=== PATIENT | female | born 1945 | race Caucasian/White ===

== ENCOUNTER 2020-12-15 03:42 | Inpatient (IN) ==
[2020-12-15] MEDS ORDERED: SODIUM CHLORIDE 0.9% 500 ML IV SCH (04:15)
[2020-12-15 04:22] LABS: Basophils # (auto) 0.02 K/uL (0-0.2); Basophils % (auto) 0.3 %; Eosinophils # (auto) 0.39 K/uL (0-0.5); Eosinophils % (auto) 5.5 %; Hematocrit (blood only) 24.6 % (37-47); Hemoglobin 8.3 g/dL (12.0-16.0); Immature Granulocytes # (auto) 0.02 K/uL (0.00-0.02); Immature Granulocytes % (auto) 0.3 %; Lymphocytes # (auto) 1.31 K/uL (1.2-3.4); Lymphocytes % (auto) 18.5 %; Mean Corpuscular Hemoglobin 31.8 pg (25-34); Mean Corpuscular Hgb Conc 33.7 g/dL (32-36); Mean Corpuscular Volume 94.3 fL (80-100); Mean Platelet Volume 9.3 fL (7.4-10.4); Monocytes # (auto) 0.87 K/uL (0.11-0.59); Monocytes % (auto) 12.3 %; Neutrophils # (auto) 4.47 K/uL (1.4-6.5); Neutrophils % (auto) 63.1 %; Platelet Count 298 K/uL (130-400); RDW Coefficient of Variation 14.9 % (11.5-14.5); RDW Standard Deviation 51.5 fL (36.4-46.3); Red Blood Count 2.61 M/uL (4.2-5.4); White Blood Count 7.08 K/uL (4.8-10.8)
[2020-12-15 04:40] LABS: Alanine Aminotransferase 70 U/L (12-78); Albumin Level 2.4 gm/dl (3.4-5.0); Aspartate Aminotransferase 65 U/L (15-37); BUN Creatinine Ratio 27.9 (10-20); Blood Urea Nitrogen 33 mg/dl (7-18); Calcium 7.8 mg/dl (8.5-10.1); Carbon Dioxide 28 mmol/L (21-32); Chloride 100 mmol/L (98-107); Est GFR (Non-African American) 45.7 ml/min; Glucose 96 mg/dl (70-99); Potassium 5.4 mmol/L (3.5-5.1); Sodium 131 mmol/L (136-145)
--- NOTE | 2020-12-15 04:45 | Emergency Department Note ---
Impression & Plan Acute hypotension, Acute hyperkalemia, Fall, Anemia ED Provider Note NAME: ADDIE VAZQUEZ AGE: 75 SEX: F ARRIVES VIA: Ambulance INFORMANT:Patient ED PROVIDER(S): Cathy Morales DO CHIEF COMPLAINT: Weakness/fall PLAN: [facility] Good MEDICAL DECISION MAKING: This is a 75-year-old female patient who presents to the emergency department after suffering a fall at home because of significant generalized weakness. Patient states that she became so weak when standing up to go to the bathroom that she fell to the ground and then had significant diarrheal bowel movement. The patient was significantly hypotensive for EMS. She was fluid rehydrated. Upon arrival here in the emergency department laboratory studies showed evidence of anemia. Patient had another episode of diarrhea here in the emergency department. This will be sent to the lab for C. difficile interpretation, culture and for Hemoccult testing. The case was discussed with the [facility] hospitalist and they will evaluate for further management. Triage Nursing notes reviewed and agree with them. Vital Signs: reviewed and remarkable for hypotension Differential diagnosis: Dehydration, electrolyte abnormality, UTI, sepsis, hypoglycemia, hyperglycemia ER treatment provided: IV normal saline hydration Diagnostics interpreted by me: ECG: Normal sinus rhythm with first-degree AV block and widened QRS complex at 140 ms. This overall EKG is much different compared to one from December 2004 where the QRS duration was 92 ms. Cardiac monitoring: Normal sinus rhythm at a rate of 66 Laboratory studies: See below HPI: 75/F arrives for evaluation of fall. The patient presents to the emergency department after suffering a fall at home when her legs gave out on her. The patient states that she was asleep on the couch and awoke feeling as if she had to go to the bathroom. She got up to go to the bathroom and her legs gave out on her and she fell to the ground. Patient then had a large diarrheal bowel movement. Patient states that she was recently admitted to [facility] and just discharged yesterday. She describes being admitted to that hospital for very similar reasons. She was noted to be hyperkalemic. ROS: See above HPI for pertinent positives & negatives. A total of 10 systems reviewed and were otherwise negative. PAST MEDICAL HISTORY:Hypertension, hypothyroidism, coronary artery disease, osteoporosis, Raynaud's disease PAST SURGICAL HISTORY:Hysterectomy, gastric bypass surgery, cholecystectomy, appendectomy, pacemaker placement FAMILY HISTORY:Mother has a history of cancer, hypertension and diabetes; father has a history of heart disease SOCIAL HISTORY:Patient lives with her ; patient no longer smokes HOME MEDICATIONS:See list ALLERGIES:Contrast media VITALS:See Below PHYSICAL EXAMINATION: General: The patient is of thin build in cachectic appearing HEENT: Head - normocephalic and atraumatic. Pupils are equal, round, and reactive to light. Extraocular eye muscles are intact, and sclera are anicteric. Nose - moist nasal mucosa without discharge. Mouth - moist buccal mucosa. Oropharynx is nonerythematous and there is no tonsillar exudate or edema noted. Neck: Supple; no nuchal rigidity or thyromegaly Heart: Regular rate and rhythm. There is a normal S1 and S2 with no murmurs, clicks, or gallops appreciated. Lungs: Clear to auscultation bilaterally with no wheezes, rales, or rhonchi. Abdomen: Soft, completely nontender, nondistended, with good bowel sounds. There are no palpable pulsatile masses or hepatosplenomegaly. There is no guarding, rigidity, or rebound noted. Extremities: No evidence of cyanosis, clubbing, or edema. There are easily palpable peripheral pulses. Skin: warm and dry with good turgor and no rashes. ED COURSE: Times/Reassessments: 0350: The patient was evaluated in room A2. A complete history and physical was performed. An order was placed for continuous cardiac monitoring. She was in a normal sinus rhythm at a rate of 65. Twelve-lead EKG was obtained as described above. I did obtain records from [facility] with regards to her recent admission. We we will obtain a stool specimen if the patient has another diarrheal bowel movement. The patient was found to be slightly hyperkalemic. EKG showed mild widening of the QRS complex. She was hemodynamically stable. The patient remained significantly weak while here in the emergency department. [facility] and they will evaluate for further management. 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 Beliefs That Will Affect Care: Ep[employer]opalian Current Living Situation: Family Other Information That Helps Us Care for You: No Feels Safe at Home: Yes Safety Concerns: Feels Safe At This Time Assistive Devices: Cane, Glasses and Walker Allergies Allergies Allergy/AdvReac Type Severity Reaction Status Date / Time red (food color) Allergy Verified 12/15/20 16:22 Iodinated Contrast Media AdvReac Unknown Unknown Unverified 12/15/20 07:26 Home Meds Home Medications Medication Instructions Recorded Confirmed acetaminophen [Tylenol] 650 mg PO BID PRN 12/15/20 12/15/20 albuterol sulfate 2.5 mg INHALATION Q6H PRN 12/15/20 12/15/20 amitriptyline 50 mg PO HS 12/15/20 12/15/20 bumetanide [Bumex] 1 mg PO BID 12/15/20 12/15/20 clopidogrel [Plavix] 75 mg PO [facility] 12/15/20 12/15/20 cranberry 0 mg PO HS 12/15/20 12/15/20 digoxin 125 mcg PO WK 12/15/20 12/15/20 levothyroxine 100 mcg PO DAILYBB 12/15/20 12/15/20 magnesium oxide 400 mg PO M 12/15/20 12/15/20 nitroglycerin [Nitrostat] 0.4 mg SUBLINGUAL UD 12/15/20 12/15/20 potassium chloride [Klor-Con] 20 meq PO QAM 12/15/20 12/15/20 pravastatin 40 mg PO DAILY 12/15/20 12/15/20 quetiapine 100 mg PO HS 12/15/20 12/15/20 ranolazine [Ranexa] 1,000 mg PO BID 12/15/20 12/15/20 Results & Data (ED) Vital Signs Vital Signs - 24 hr 12/15/20 03:50 12/15/20 03:53 12/15/20 04:22 Temperature 37.0 C Temperature Source Oral Pulse Rate 82 Pulse Rate [Right] 66 Pulse Rhythm [Right] Regular Pulse Strength [Right] Normal Respiratory Rate 16 16 Respiratory Effort / Characteristics Non-Labored Spontaneous Non-Labored Spontaneous Respiratory Depth Normal Normal Blood Pressure 87/60 L Blood Pressure [Right Arm] 96/52 L Blood Pressure Mean 69 Blood Pressure Mean [Right Arm] 66 Blood Pressure Position Lying Blood Pressure Position [Right Arm] Lying Pulse Oximetry 100 100 96 Oxygen Delivery Method Room Air Room Air Room Air Sepsis Recent Fever Within 48 Hours No Sepsis New/Unexplained Change in Mental Status N/A Sepsis Action Taken by Nursing No Action Required 12/15/20 06:00 Temperature Temperature Source Pulse Rate Pulse Rate [Right] 65 Pulse Rhythm [Right] Regular Pulse Strength [Right] Normal Respiratory Rate 16 Respiratory Effort / Characteristics Non-Labored Spontaneous Respiratory Depth Normal Blood Pressure Blood Pressure [Right Arm] 108/69 Blood Pressure Mean Blood Pressure Mean [Right Arm] 82 Blood Pressure Position Blood Pressure Position [Right Arm] Lying Pulse Oximetry 95 Oxygen Delivery Method Room Air Sepsis Recent Fever Within 48 Hours Sepsis New/Unexplained Change in Mental Status Sepsis Action Taken by Nursing Laboratory Data Result diagrams: 12/17/20 05:36 12/17/20 05:36 Lab Results 12/15/20 12/15/20 12/15/20 Range/Units 03:50 03:50 04:20 WBC 7.08 (4.8-10.8) K/uL RBC 2.61 L (4.2-5.4) M/uL Hgb 8.3 L (12.0-16.0) g/dL Hct 24.6 L (37-47) % MCV 94.3 (80-100) fL MCH 31.8 (25-34) pg MCHC 33.7 (32-36) g/dL RDW Std Deviation 51.5 H (36.4-46.3) fL RDW Coeff of Nazario 14.9 H (11.5-14.5) % Plt Count 298 (130-400) K/uL MPV 9.3 (7.4-10.4) fL Immature Gran % (Auto) 0.3 % Neut % (Auto) 63.1 % Lymph % (Auto) 18.5 % Haakon % (Auto) 12.3 % Eos % (Auto) 5.5 % Baso % (Auto) 0.3 % Neut # (Auto) 4.47 (1.4-6.5) K/uL Lymph # (Auto) 1.31 (1.2-3.4) K/uL Haakon # (Auto) 0.87 H (0.11-0.59) K/uL Eos # (Auto) 0.39 (0-0.5) K/uL Baso # (Auto) 0.02 (0-0.2) K/uL Immature Gran # (Auto) 0.02 (0.00-0.02) K/uL Sodium 131 L (136-145) mmol/L Potassium 5.4 H (3.5-5.1) mmol/L Chloride 100 (98-107) mmol/L Carbon Dioxide 28 (21-32) mmol/L Anion Gap 3.0 (3-11) BUN 33 H (7-18) mg/dl Creatinine 1.18 (0.6-1.2) mg/dl Est Cr Clr Drug Dosing Not Reportable Est GFR ( Amer) 53.0 ml/min Est GFR (Non-Af Amer) 45.7 ml/min BUN/Creatinine Ratio 27.9 H (10-20) Glucose 96 (70-99) mg/dl Calcium 7.8 L (8.5-10.1) mg/dl Total Bilirubin 0.3 (0.2-1) mg/dl AST 65 H (15-37) U/L ALT 70 (12-78) U/L Alkaline Phosphatase 160 H (45-117) U/L Troponin I 0.021 (0-0.045) ng/ml Total Protein 5.7 L (6.4-8.2) gm/dl Albumin 2.4 L (3.4-5.0) gm/dl Globulin 3.3 (2.5-4.0) gm/dl Albumin/Globulin Ratio 0.7 L (0.9-2) TSH 4.800 H (0.300-4.500) uIu/ml Free T4 0.98 (0.8-1.6) ng/dl Stl C. diff Tox B Gene Negative Cdiff Gene (Neg) COVID-19 Eval Order SARS-CoV-2 (PCR) (Negative) 12/15/20 12/15/20 Range/Units 05:00 05:00 WBC (4.8-10.8) K/uL RBC (4.2-5.4) M/uL Hgb (12.0-16.0) g/dL Hct (37-47) % MCV (80-100) fL MCH (25-34) pg MCHC (32-36) g/dL RDW Std Deviation (36.4-46.3) fL RDW Coeff of Nazario (11.5-14.5) % Plt Count (130-400) K/uL MPV (7.4-10.4) fL Immature Gran % (Auto) % Neut % (Auto) % Lymph % (Auto) % Haakon % (Auto) % Eos % (Auto) % Baso % (Auto) % Neut # (Auto) (1.4-6.5) K/uL Lymph # (Auto) (1.2-3.4) K/uL Haakon # (Auto) (0.11-0.59) K/uL Eos # (Auto) (0-0.5) K/uL Baso # (Auto) (0-0.2) K/uL Immature Gran # (Auto) (0.00-0.02) K/uL Sodium (136-145) mmol/L Potassium (3.5-5.1) mmol/L Chloride (98-107) mmol/L Carbon Dioxide (21-32) mmol/L Anion Gap (3-11) BUN (7-18) mg/dl Creatinine (0.6-1.2) mg/dl Est Cr Clr Drug Dosing Est GFR ( Amer) ml/min Est GFR (Non-Af Amer) ml/min BUN/Creatinine Ratio (10-20) Glucose (70-99) mg/dl Calcium (8.5-10.1) mg/dl Total Bilirubin (0.2-1) mg/dl AST (15-37) U/L ALT (12-78) U/L Alkaline Phosphatase (45-117) U/L Troponin I (0-0.045) ng/ml Total Protein (6.4-8.2) gm/dl Albumin (3.4-5.0) gm/dl Globulin (2.5-4.0) gm/dl Albumin/Globulin Ratio (0.9-2) TSH (0.300-4.500) uIu/ml Free T4 (0.8-1.6) ng/dl Stl C. diff Tox B Gene (Neg) COVID-19 Eval Order Covid19 at [facility] SARS-CoV-2 (PCR) NEGATIVE (Negative) Administered Medications Acetaminophen (Acetaminophen 325 Mg Tab) 650 mg PO Q4H PRN PRN Reason: Pain or Fever Stop: 01/14/21 10:47 Last Admin: 12/16/20 03:48 Dose: 650 mg Documented by: [id number] Bumetanide (Bumetanide 1 Mg Tab) 1 mg PO DAILY [facility] Stop: 01/14/21 11:29 Last Admin: 12/17/20 07:08 Dose: 1 mg Documented by: [id number] Admin: 12/16/20 07:37 Dose: 1 mg Documented by: [id number] Admin: 12/15/20 14:09 Dose: 1 mg Documented by: [id number] Carvedilol (Carvedilol 3.125 Mg Tab) 3.125 mg PO BID [facility] Stop: 01/15/21 20:59 Last Admin: 12/17/20 07:09 Dose: 3.125 mg Documented by: [id number] Admin: 12/16/20 20:26 Dose: 3.125 mg Documented by: [id number] Clopidogrel Bisulfate (Clopidogrel Bisulfate 75 Mg Tab) 75 mg PO QAM [facility] Stop: 01/14/21 11:29 Last Admin: 12/17/20 07:09 Dose: 75 mg Documented by: [id number] Admin: 12/16/20 07:37 Dose: 75 mg Documented by: [id number] Admin: 12/15/20 14:09 Dose: 75 mg Documented by: [id number] Digoxin (Digoxin 0.125 Mg Tab) 0.125 mg PO Sa@1600 [facility] Stop: 01/15/21 15:59 Last Admin: 12/16/20 16:50 Dose: 0.125 mg Documented by: [id number] Pantoprazole Sodium 40 mg/ (Syringe) 10 mls @ 5 mls/min IV BID [facility] Stop: 01/14/21 11:29 Last Admin: 12/17/20 07:09 Dose: 5 mls/min Documented by: [id number] Admin: 12/16/20 20:26 Dose: 5 mls/min Documented by: [id number] Admin: 12/16/20 07:35 Dose: 5 mls/min Documented by: [id number] Admin: 12/15/20 21:49 Dose: 5 mls/min Documented by: [id number] Admin: 12/15/20 14:08 Dose: 5 mls/min Documented by: [id number] Levothyroxine Sodium (Levothyroxine Sodium 100 Mcg Tablet) 100 mcg PO DAILYBB [facility] Stop: 01/15/21 06:29 Last Admin: 12/17/20 06:05 Dose: 100 mcg Documented by: [id number] Admin: 12/16/20 06:05 Dose: 100 mcg Documented by: [id number] Magnesium Oxide (Magnesium Oxide 400 Mg Tab) 400 mg PO QAM [facility] Stop: 01/14/21 11:29 Last Admin: 12/17/20 07:11 Dose: 400 mg Documented by: [id number] Admin: 12/16/20 07:50 Dose: 400 mg Documented by: [id number] Admin: 12/15/20 14:08 Dose: 400 mg Documented by: [id number] Ondansetron HCl (Ondansetron Inj 2 Mg/Ml 2 Ml Vial) 4 mg IV Q6H PRN PRN Reason: Nausea Stop: 01/14/21 10:47 Last Admin: 12/15/20 21:52 Dose: 4 mg Documented by: [id number] Pravastatin Sodium (Pravastatin Sod 40 Mg Tab) 40 mg PO DAILY [facility] Stop: 01/14/21 11:29 Last Admin: 12/17/20 07:09 Dose: 40 mg Documented by: [id number] Admin: 12/16/20 07:37 Dose: 40 mg Documented by: [id number] Admin: 12/15/20 14:09 Dose: 40 mg Documented by: [id number] Pyridoxine HCl (Pyridoxine Hcl 50 Mg Tab) [facility] [place] Stop: 01/15/21 08:59 Last Admin: 12/17/20 07:09 Dose: 50 mg Documented by: [id number] Admin: 12/16/20 08:31 Dose: 50 mg Documented by: [id number] Ranolazine (Ranolazine 500 Mg Er Tab) 1,000 mg PO BID [facility] Stop: 01/14/21 11:29 Last Admin: 12/17/20 07:09 Dose: 1,000 mg Documented by: [id number] Admin: 12/16/20 20:27 Dose: 1,000 mg Documented by: [id number] Admin: 12/16/20 07:36 Dose: 1,000 mg Documented by: [id number] Admin: 12/15/20 21:49 Dose: 1,000 mg Documented by: [id number] Admin: 12/15/20 14:09 Dose: 1,000 mg Documented by: [id number] Thiamine HCl (Thiamine Hcl 100 Mg Tab) 100 mg PO QAM [facility] Stop: 01/15/21 08:59 Last Admin: 12/17/20 07:08 Dose: 100 mg Documented by: [id number] Admin: 12/16/20 07:37 Dose: 100 mg Documented by: [id number] Discontinued Medications Sodium Chloride (Nss) 500 mls @ 999 mls/hr IV .Q31M [facility] Stop: 12/15/20 04:45 Last Infusion: 12/15/20 04:51 Dose: 0 mls/hr Documented by: [id number] Admin: 12/15/20 04:11 Dose: 999 mls/hr Documented by: [id number] Sodium Chloride (Nss) 500 mls @ 999 mls/hr IV .Q31M ONE Stop: 12/15/20 05:19 Last Infusion: 12/15/20 05:30 Dose: 0 mls/hr Documented by: [id number] Admin: 12/15/20 04:59 Dose: 999 mls/hr Documented by: [id number] Thiamine HCl 100 mg/ Syringe 10 mls @ 2 mls/min IV NOW ONE Stop: 12/15/20 11:19 Last Admin: 12/15/20 14:08 Dose: 2 mls/min Documented by: [id number] Discharge Plan Visit Data Chief Complaint: Leg Weakness, Bilateral Stated Complaint: Fall ED Provider: Cathy Morales Discharge Problem: Acute hypotension, Acute hyperkalemia, Fall, Anemia Patient Disposition: Admitted As Inpatient Discharge Instructions Interventions: ED Discharge Assessment Last Done: 12/15/20 10:26 Discharge Problem: Fall Qualifiers: Encounter type: initial encounter Qualified Code(s): W19.XXXA - Unspecified fall, initial encounter Anemia Qualifiers: Anemia type: unspecified type Qualified Code(s): D64.9 - Anemia, unspecified
[2020-12-15] MEDS ORDERED: SODIUM CHLORIDE 0.9% 500 ML IV ONE (04:49)
[2020-12-15 04:50] LABS: Albumin Globulin Ratio 0.7 (0.9-2); Alkaline Phosphatase 160 U/L (45-117); Bilirubin,Total 0.3 mg/dl (0.2-1); Globulin 3.3 gm/dl (2.5-4.0); Total Protein 5.7 gm/dl (6.4-8.2); Troponin I 0.021 ng/ml (0-0.045)
[2020-12-15 05:03] LABS: T4 Free Thyroxine 0.98 ng/dl (0.8-1.6)
--- NOTE | 2020-12-15 06:32 | XRay Report ---
XR chest 1V portable CLINICAL HISTORY: weakness COMPARISON STUDY: No previous studies for comparison. FINDINGS: A left subclavian pacer/AICD is in place. There is multilevel vertebroplasty within the tho racic spine. Note is made of moderate cardiomegaly without evidence for pulmonary edema. There is no pneumothorax or pleural effusion. IMPRESSION: No acute cardiopulmonary findings. Cardiomegaly. ACT 112: Negative or not required by law. Electronically signed by: Silver Dee M.D. 12/15/2020 6:31 AM
--- NOTE | 2020-12-15 07:09 | History & Physical Report ---
Date of Service December 15, 2020 Assessment & Plan (1) Fall: Patient sustained a fall at home. Previous admissions to [facility] did also include fall as one of her diagnosis. Reportedly in the past she has been resistant to rehab placement. Reportedly last physical therapy states she did walk 70 feet with a rolling walker. Subsequently will evaluate for metabolic causes impacting her strength weakness and balance We will retest her urine for infection Monitor for arrhythmia and interrogate her pacemaker Given her history of systolic failure we will get an echocardiogram as she may be at risk for dysrhythmia if her ejection fraction is markedly depressed (2) Anemia: Patient's hemoglobin is 8.3 on presentation, her MCV is normal but she does have an widened RDW. She denies melena at home. 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 She typically is not on a PPI. She will be started on such. And as mentioned in her cardiac area aspirin will be held. She will be typed and screened and a hemoglobin be checked at 1300 today (3) Chronic systolic heart failure: Systolic heart failure in plies to be significant given the fact that she is on 2 diuretics at beta-suhail and the fact that she is on Ranexa makes me wonder if she has coronary artery disease refractory to intervention. We will continue her diuretics at this time her previous beta-suhail seem to been discontinued but she will be on monitor and watch carefully she currently is not on aspirin but on Ranexa however given anemia on presentation we will continue to hold the aspirin. (4) Pacemaker: Patient thinks he had a pacemaker placed in [facility] she cannot recall the brand will have it interrogated today (5) Hypothyroidism: Patient is maintained on her Synthroid typical dosing is 100 mcg TSH was slightly elevated on presentation but T4 was appropriate (6) Depression: Patient continues on Paxil for depression (7) Dyslipidemia: Patient is on pravastatin for dyslipidemia (8) Hyperkalemia: Patient is on oral potassium supplementation. Cortisol level be checked. Patient's renal function is appropriate. Recheck potassium at 1300. Patient was given IV fluid in the ER will be continued for additional 500 of saline cautiously given her history of heart failure (9) Diarrhea: Isolated episode of diarrhea patient has C. difficile tested negative enterics are currently pending (10) DVT prophylaxis: SCD use given her anemia History of Present Illness Primary Care Provider: Rock Beard 75 F with weakness and mechaincal fall at home with associated diarrhea, recently discharged [facility] Allergies Allergy/AdvReac Type Severity Reaction Status Date / Time Iodinated Contrast Media AdvReac Unknown Unknown Unverified 12/15/20 07:26 Home Medications Medication Instructions Recorded Confirmed Type acetaminophen [Tylenol] 650 mg PO BID PRN 12/15/20 12/15/20 History albuterol sulfate 2.5 mg INHALATION Q6H PRN 12/15/20 12/15/20 History amitriptyline 50 mg PO HS 12/15/20 12/15/20 History bumetanide [Bumex] 1 mg PO BID 12/15/20 12/15/20 History clopidogrel [Plavix] 75 mg PO QAM 12/15/20 12/15/20 History cranberry 0 mg PO HS 12/15/20 12/15/20 History digoxin 125 mcg PO WK 12/15/20 12/15/20 History levothyroxine 100 mcg PO DAILYBB 12/15/20 12/15/20 History magnesium oxide 400 mg PO QAM 12/15/20 12/15/20 History nitroglycerin [Nitrostat] 0.4 mg SUBLINGUAL UD 12/15/20 12/15/20 History potassium chloride [Klor-Con] 20 meq PO QAM 12/15/20 12/15/20 History pravastatin 40 mg PO DAILY 12/15/20 12/15/20 History quetiapine 100 mg PO HS 12/15/20 12/15/20 History ranolazine [Ranexa] 1,000 mg PO BID 12/15/20 12/15/20 History Past Med/Surg History Family History (Updated 12/15/20 @ 08:15 by Rajendra Anaya MD) Other Cancer Coronary heart disease Diabetes Hypertension Social History Smoking Status: Former smoker Feels Safe at Home: Yes Review of Systems Review of Systems: Mild distress and moderate fatigue no headache, no visual changes no speech or swallowing issues no chest pain, pressure or palpitations no shortness of breath, cough or wheezes no abdominal pain, nausea or vomiting, patient had diarrhea on presentation previously complaints of constipation no dysuria, hematuria or frequency noted to have asymptomatic bacteriuria [facility] during last admission no focal joint pain or swelling denies any injury from falling at home no back pain, CVA tenderness or radicular pain no bruising, bleeding or rashes no focal signs of weakness or numbness or altered sensation overall very weak no complaints of anxiety or depression.. Physical Exam Physical Exam: The patient appeared chronically ill and underweight Vital signs as documented. Head exam is normocephalic atraumatic Neck is without JVD, thyromegaly, or carotid bruits. Lungs are clear to auscultation, no focal loss of breath sounds Cardiac exam, Rhythm is regular.. No murmurs, rubs or gallops Pacemaker is visualized in her left upper chest. Abdominal exam reveals normal bowel sounds, soft non tender, no masses Extremities are nonedematous and both pedal pulses are present Neurologic exam is alert and oriented, no focal loss of strength or sensation Skin is without bruises or rashes Psychologically is with concerns for depression Results & Data Results & Data ([facility]) Vital Signs (Past 12 Hours) Vital Signs Temp Pulse Pulse Resp BP BP Pulse Ox 12/15/20 06:00 65 16 108/69 95 12/15/20 04:22 66 16 96/52 L 96 12/15/20 03:53 100 12/15/20 03:50 98.6 F 82 16 87/60 L 100 EKG shows sinus rhythm with an intraventricular conduction delay with wide QRS complex it is not paced at this point in time, troponins negative Chest x-ray is unremarkable for infiltrates or disease Instantly dentally noted C. difficile tested in the emergency department negative Covid in the emergency department negative PG Care Time/CCT Total # of Minutes Spent Total Time Spent with Patient: Total time spent is greater than 50% in coordination of care (as documented) at patient's floor/unit and/or counseling patient: Coding Level of Care Code 41495 Initial Inpt Care Lvl 3 Diagnoses Fall W19.XXXA Anemia D64.9 Chronic systolic heart failure I50.22 Pacemaker Z95.0 Hypothyroidism E03.9 Depression F32.9 Dyslipidemia E78.5 Hyperkalemia E87.5 Diarrhea R19.7 DVT prophylaxis Z29.9
--- NOTE | 2020-12-15 08:12 | Electrocardiogram Report ---
Test Reason : Blood Pressure : / mmHG Vent. Rate : 082 BPM Atrial Rate : 082 BPM P-R Int : 244 ms QRS Dur : 140 ms QT Int : 398 ms P-R-T Axes : 050 -81 096 degrees QTc Int : 464 ms Sinus rhythm with 1st degree A-V block Left bundle branch block Abnormal ECG No previous ECGs available Confirmed by Con Soriano ([id number]) on 12/15/2020 8:12:43 AM Referred By: REFERRED SELF Confirmed By:Con Soriano
[2020-12-15] MEDS ORDERED: ALUMINUM/MAGNESIUM SUSP 30 ML UDC PO PRN (10:48)
[2020-12-15] MEDS ORDERED: ONDANSETRON INJ 2 MG/ML 2 ML VIAL IV PRN (10:48)
[2020-12-15] MEDS ORDERED: THIAMINE HCL 100 MG in SYRINGE 9 ML IV ONE (11:15)
[2020-12-15 13:31] LABS: Hematocrit (blood only) 25.7 % (37-47); Hemoglobin 8.8 g/dL (12.0-16.0); Mean Corpuscular Hgb Conc 34.2 g/dL (32-36); Mean Corpuscular Volume 93.5 fL (80-100); Mean Platelet Volume 9.2 fL (7.4-10.4); Platelet Count 312 K/uL (130-400); RDW Standard Deviation 51.1 fL (36.4-46.3); Red Blood Count 2.75 M/uL (4.2-5.4); White Blood Count 6.89 K/uL (4.8-10.8)
[2020-12-15 13:56] LABS: BUN Creatinine Ratio 32.6 (10-20); Calcium 8.2 mg/dl (8.5-10.1); Creatinine Clr Calc Pharmacy 40.9 ml/min; Est GFR (African American) 67.2 ml/min; Est GFR (Non-African American) 57.9 ml/min; Potassium 5.4 mmol/L (3.5-5.1)
[2020-12-15] MEDS: MAGNESIUM OXIDE 400 MG TAB PO SCH (14:08)
[2020-12-15] MEDS: PANTOprazole 40 MG in SYRINGE 0 ML IV SCH ×2 (14:08→21:49)
[2020-12-15] MEDS: BUMETANIDE 1 MG TAB PO SCH (14:09)
[2020-12-15] MEDS: RANOLAZINE 500 MG ER TAB PO SCH ×2 (14:09→21:49)
[2020-12-15] MEDS: CLOPIDOGREL BISULFATE 75 MG TAB PO SCH (14:09)
[2020-12-15] MEDS: PRAVASTATIN SOD 40 MG TAB PO SCH (14:09)
--- NOTE | 2020-12-15 15:27 | XCELERA ---
[id number]
[2020-12-16 02:21] LABS: Appearance Urine Clear (Clear); Bilirubin Urine Negative (Negative); Blood Urine Negative (Negative); Color Urine Yellow; Glucose Urine UA Negative (Negative); Ketones Urine Negative (Negative); Leukocyte Esterase Urine Negative (Negative); Nitrite Urine Negative (Negative); Protein Urine Negative (Negative); Urobilinogen Urine Negative (Negative); pH Urine 5.5 (4.5-7.5)
[2020-12-16] MEDS: ACETAMINOPHEN 325 MG TAB PO PRN (03:48)
[2020-12-16] MEDS: LEVOTHYROXINE SODIUM 100 MCG TABLET PO SCH (06:05)
[2020-12-16 07:19] LABS: Mean Corpuscular Hemoglobin 31.6 pg (25-34); Mean Corpuscular Hgb Conc 34.6 g/dL (32-36); Mean Corpuscular Volume 91.2 fL (80-100); Mean Platelet Volume 8.9 fL (7.4-10.4); Platelet Count 316 K/uL (130-400); RDW Coefficient of Variation 14.5 % (11.5-14.5); RDW Standard Deviation 48.3 fL (36.4-46.3); Red Blood Count 2.85 M/uL (4.2-5.4); White Blood Count 7.78 K/uL (4.8-10.8)
[2020-12-16] MEDS: PANTOprazole 40 MG in SYRINGE 0 ML IV SCH ×2 (07:35→20:26)
[2020-12-16] MEDS: RANOLAZINE 500 MG ER TAB PO SCH ×2 (07:36→20:27)
[2020-12-16] MEDS: PRAVASTATIN SOD 40 MG TAB PO SCH (07:37)
[2020-12-16] MEDS: BUMETANIDE 1 MG TAB PO SCH (07:37)
[2020-12-16] MEDS: THIAMINE HCL 100 MG TAB PO SCH (07:37)
[2020-12-16] MEDS: CLOPIDOGREL BISULFATE 75 MG TAB PO SCH (07:37)
[2020-12-16 07:41] LABS: BUN Creatinine Ratio 29.4 (10-20); Calcium 7.7 mg/dl (8.5-10.1); Creatinine Clr Calc Pharmacy 38.9 ml/min; Est GFR (African American) 63.2 ml/min; Est GFR (Non-African American) 54.5 ml/min; Magnesium 2.2 mg/dl (1.8-2.4); Potassium 5.2 mmol/L (3.5-5.1)
[2020-12-16] MEDS: MAGNESIUM OXIDE 400 MG TAB PO SCH (07:50)
[2020-12-16] MEDS: PYRIDOXINE HCL 50 MG TAB PO SCH (08:31)
[2020-12-16] MEDS ORDERED: DIGOXIN 0.125 MG TAB PO SCH (16:00)
--- NOTE | 2020-12-16 17:15 | Hospitalist Progress Note ---
Date of Service December 16, 2020 Assessment & Plan (1) Fall: Patient sustained a fall at home. Previous admissions to [facility] did also include fall as one of her diagnosis. Reportedly in the past she has been resistant to rehab placement. Reportedly last physical therapy states she did walk 70 feet with a rolling walker. Subsequently will evaluate for metabolic causes impacting her strength weakness and balance We will retest her urine for infection Monitor for arrhythmia and interrogate her pacemaker Echocardiography shows EF to be 25 to 30% moderate to severely reduced systolic function of left ventricle entire apex and mid to distal septum anterior septum anterior and wall are akinetic with severely hypokinetic remaining jones, severe MR and elevated right heart pressures we did cut quetiapine and amitriptyline from her regime (2) Anemia: Patient's hemoglobin is 8.3 on presentation, her MCV is normal but she does have an widened RDW. She denies melena at home. 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 She typically is not on a PPI. She will be started on such. And as mentioned in her cardiac area aspirin will be held. hgb is stable not clear etiology at this point will vitamin indices show low normal iron and low tibc and normal b 12, this may suggest acute blood loss anemia, pt will be on protonix and follow hgb (3) Chronic systolic heart failure: Systolic heart failure implies to be significant given the fact that she is on 2 diuretics at beta-suhail and the fact that she is on Ranexa makes me wonder if she has coronary artery disease refractory to intervention. We will continue her diuretics at this time her previous beta-suhail seem to been discontinued but she will be on monitor and watch carefully she currently is not on aspirin but on Ranexa Given her cardiac function she likely should be on beta-suhail or afterload reduction will attempt to add coreg back to her regimen (4) Pacemaker: Patient thinks he had a pacemaker placed in [facility] she cannot recall the brand will have it interrogated today (5) Hypothyroidism: Patient is maintained on her Synthroid typical dosing is 100 mcg TSH was slightly elevated on presentation but T4 was appropriate (6) Depression: Patient continues on Paxil for depression (7) Dyslipidemia: Patient is on pravastatin for dyslipidemia, question if will benefit from high intensity statin (8) Hyperkalemia: Patient is on oral potassium supplementation. Cortisol level be checked. Patient's renal function is appropriate. (9) Diarrhea: Isolated episode of diarrhea patient has C. difficile tested negative enterics are currently pending (10) DVT prophylaxis: SCD use given her anemia Admission and Anticipated Discharge Date Admission Date: December 15, 2020 Subjective pt looks objectively much better and subjectively feels much better Review of Systems Review of Systems: Mild distress and fatigue no headache, no visual changes no speech or swallowing issues no chest pain, pressure or palpitations no shortness of breath, cough or wheezes no abdominal pain, nausea or vomiting, diarrhea or constipation no dysuria, hematuria or frequency no focal joint pain or swelling no back pain, CVA tenderness or radicular pain no bruising, bleeding or rashes no focal signs of weakness or numbness or altered sensation no complaints of anxiety or depression.. Physical Exam Physical Exam: The patient appeared well nourished and normally developed. Vital signs as documented. Head exam is normocephalic atraumatic Neck is without JVD, thyromegaly, or carotid bruits. Lungs are clear to auscultation, no focal loss of breath sounds Cardiac exam, Rhythm is regular.. Systolic ejection murmur is heard Abdominal exam reveals normal bowel sounds, soft non tender, no masses Extremities are nonedematous and both pedal pulses are present Neurologic exam is alert and oriented, no focal loss of strength or sensation Skin is without bruises or rashes Psychologically is without concerns for anxiety or depression Results & Data Results & Data ([facility]) Vital Signs (Past 12 Hours) Vital Signs Temp Pulse Pulse Resp BP Pulse Ox 12/16/20 16:50 94 H 12/16/20 15:40 97.7 F 84 14 123/75 100 12/16/20 11:45 97.9 F 85 15 116/68 99 12/16/20 08:00 71 12/16/20 07:10 98.4 F 67 19 113/65 96 PG Care Time/CCT Total # of Minutes Spent Total Time Spent with Patient: Total time spent is greater than 50% in coordination of care (as documented) at patient's floor/unit and/or counseling patient: Coding Level of Care Code 83155 Subseq Hosp Care Lvl 3 Diagnoses Fall W19.XXXA Anemia D64.9 Chronic systolic heart failure I50.22 Pacemaker Z95.0 Hypothyroidism E03.9 Depression F32.9 Dyslipidemia E78.5 Hyperkalemia E87.5 Diarrhea R19.7 DVT prophylaxis Z29.9
[2020-12-16] MEDS: carvediloL 3.125 MG TAB PO SCH (20:26)
[2020-12-17] MEDS: LEVOTHYROXINE SODIUM 100 MCG TABLET PO SCH (06:05)
[2020-12-17 06:15] LABS: Hematocrit (blood only) 26.1 % (37-47); Mean Corpuscular Hgb Conc 34.5 g/dL (32-36); Mean Corpuscular Volume 92.9 fL (80-100); Mean Platelet Volume 9.2 fL (7.4-10.4); Platelet Count 335 K/uL (130-400); RDW Coefficient of Variation 14.6 % (11.5-14.5); RDW Standard Deviation 49.6 fL (36.4-46.3); Red Blood Count 2.81 M/uL (4.2-5.4)
[2020-12-17 06:51] LABS: BUN Creatinine Ratio 34.5 (10-20); Calcium 8.6 mg/dl (8.5-10.1); Creatinine Clr Calc Pharmacy 40.4 ml/min; Est GFR (African American) 66.3 ml/min; Est GFR (Non-African American) 57.2 ml/min; Magnesium 2.2 mg/dl (1.8-2.4); Potassium 4.7 mmol/L (3.5-5.1)
[2020-12-17] MEDS: THIAMINE HCL 100 MG TAB PO SCH (07:08)
[2020-12-17] MEDS: BUMETANIDE 1 MG TAB PO SCH (07:08)
[2020-12-17] MEDS: PRAVASTATIN SOD 40 MG TAB PO SCH (07:09)
[2020-12-17] MEDS: carvediloL 3.125 MG TAB PO SCH ×2 (07:09→20:30)
[2020-12-17] MEDS: RANOLAZINE 500 MG ER TAB PO SCH ×2 (07:09→20:30)
[2020-12-17] MEDS: CLOPIDOGREL BISULFATE 75 MG TAB PO SCH (07:09)
[2020-12-17] MEDS: PANTOprazole 40 MG in SYRINGE 0 ML IV SCH ×2 (07:09→20:21)
[2020-12-17] MEDS: PYRIDOXINE HCL 50 MG TAB PO SCH (07:09)
[2020-12-17] MEDS: MAGNESIUM OXIDE 400 MG TAB PO SCH (07:11)
--- NOTE | 2020-12-17 17:06 | Hospitalist Progress Note ---
Date of Service December 17, 2020 Assessment & Plan (1) Fall: Patient sustained a fall at home. Previous admissions to [facility] did also include fall as one of her diagnosis. Reportedly in the past she has been resistant to rehab placement. Reportedly last physical therapy states she did walk 70 feet with a rolling walker. Subsequently will evaluate for metabolic causes impacting her strength weakness and balance We will retest her urine for infection Monitor for arrhythmia and interrogate her pacemaker Echocardiography shows EF to be 25 to 30% moderate to severely reduced systolic function of left ventricle entire apex and mid to distal septum anterior septum anterior and wall are akinetic with severely hypokinetic remaining jones, severe MR and elevated right heart pressures we did cut quetiapine and amitriptyline from her regime, pt is more awake and alert, will see if Physical therapy (2) Anemia: Patient's hemoglobin is 8.3 on presentation, her MCV is normal but she does have an widened RDW. She denies melena at home. 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 She typically is not on a PPI. She will be started on such. And as mentioned in her cardiac area aspirin will be held. hgb is stable not clear etiology at this point will vitamin indices show low normal iron and low tibc and normal b 12, will restart aspirin and continue protonix (3) Chronic systolic heart failure: Systolic heart failure implies to be significant given the fact that she is on 2 diuretics at beta-suhail and the fact that she is on Ranexa makes me wonder if she has coronary artery disease refractory to intervention. We will continue her diuretics, Ranexa restarted coreg and will attempt to increase, blood pressure limits bg i Given her cardiac function will have cardiac appointment may consider if entresto maybe in her future and also is device should be considered to be iacd, anticoagulation will be held with concern for GI bleed (4) Pacemaker: Patient thinks he had a pacemaker placed in [facility] she cannot recall the brand will have it interrogated today (5) Hypothyroidism: Patient is maintained on her Synthroid typical dosing is 100 mcg TSH was slightly elevated on presentation but T4 was appropriate (6) Depression: Patient continues on Paxil for depression (7) Dyslipidemia: Patient is on pravastatin for dyslipidemia, question if will benefit from high intensity statin (8) Hyperkalemia: Patient is on oral potassium supplementation. Cortisol level be checked. Patient's renal function is appropriate. (9) Diarrhea: Isolated episode of diarrhea patient has C. difficile tested negative enterics are currently pending (10) DVT prophylaxis: SCD use given her anemia Admission and Anticipated Discharge Date Admission Date: December 15, 2020 Subjective pt continues to look better, she will be engaged in heart failure clinic, pt still wants to go home family is concerned Review of Systems Review of Systems: Mild distress and fatigue no headache, no visual changes no speech or swallowing issues no chest pain, pressure or palpitations no shortness of breath, cough or wheezes no abdominal pain, nausea or vomiting, diarrhea or constipation no dysuria, hematuria or frequency no focal joint pain or swelling no back pain, CVA tenderness or radicular pain no bruising, bleeding or rashes no focal signs of weakness or numbness or altered sensation no complaints of anxiety or depression.. Physical Exam Physical Exam: The patient appeared well nourished and normally developed. Vital signs as documented. Head exam is normocephalic atraumatic Neck is without JVD, thyromegaly, or carotid bruits. Lungs are clear to auscultation, no focal loss of breath sounds Cardiac exam, Rhythm is regular.. Systolic ejection murmur is heard Abdominal exam reveals normal bowel sounds, soft non tender, no masses Extremities are nonedematous and both pedal pulses are present Neurologic exam is alert and oriented, no focal loss of strength or sensation Skin is without bruises or rashes Psychologically is without concerns for anxiety or depression Results & Data Results & Data ([facility]) Vital Signs (Past 12 Hours) Vital Signs Temp Pulse Pulse Resp BP BP Pulse Ox 12/17/20 15:55 74 12/17/20 15:07 98.6 F 93 H 20 117/77 98 12/17/20 13:08 80 12/17/20 12:08 98.1 F 90 19 103/64 97 12/17/20 08:00 82 12/17/20 07:07 97.9 F 91 H 16 109/64 100 PG Care Time/CCT Total # of Minutes Spent Total Time Spent with Patient: Total time spent is greater than 50% in coordination of care (as documented) at patient's floor/unit and/or counseling patient: Coding Level of Care Code 55597 Subseq Hosp Care Lvl 2 Diagnoses Fall W19.XXXA Anemia D64.9 Chronic systolic heart failure I50.22 Pacemaker Z95.0 Hypothyroidism E03.9 Depression F32.9 Dyslipidemia E78.5 Hyperkalemia E87.5 Diarrhea R19.7 DVT prophylaxis Z29.9
[2020-12-18] MEDS: ACETAMINOPHEN 325 MG TAB PO PRN (05:52)
[2020-12-18] MEDS: LEVOTHYROXINE SODIUM 100 MCG TABLET PO SCH (05:52)
[2020-12-18 06:21] LABS: Mean Corpuscular Hemoglobin 31.1 pg (25-34); Mean Corpuscular Hgb Conc 33.3 g/dL (32-36); Mean Corpuscular Volume 93.4 fL (80-100); Mean Platelet Volume 9.2 fL (7.4-10.4); Platelet Count 338 K/uL (130-400); RDW Coefficient of Variation 14.6 % (11.5-14.5); RDW Standard Deviation 50.2 fL (36.4-46.3); Red Blood Count 2.89 M/uL (4.2-5.4); White Blood Count 6.58 K/uL (4.8-10.8)
[2020-12-18 07:07] LABS: Calcium 7.9 mg/dl (8.5-10.1); Creatinine Clr Calc Pharmacy 37.4 ml/min; Est GFR (African American) 60.3 ml/min; Magnesium 2.2 mg/dl (1.8-2.4); Potassium 4.3 mmol/L (3.5-5.1)
--- NOTE | 2020-12-18 07:56 | Cardiology Consultation ---
Date of Consultation December 18, 2020 Assessment & Plan (1) Chronic systolic heart failure: (2) Cardiomyopathy: (3) Mitral regurgitation: (4) ICD (implantable cardioverter-defibrillator) in place: (5) LBBB (left bundle branch block): ASSESSMENT/PLAN: 1. Chronic systolic CHF: She appears compensated and euvolemic on exam. She actually received IV fluids in the emergency department. Continue carvedilol. She was hyperkalemic on presentation but also taking potassium supplementation. Would consider Entresto. Titrate medications as able. No spironolactone at this time as she presented with hyperkalemia. Records requested for review to see if she has been on some of these medications in the past with her primary palletiser operator. Would continue current dose of Bumex 1 mg daily for now. She had been taking 1 mg twice daily at home. 2. Cardiomyopathy: Likely ischemic in origin given akinetic LAD territory as described on echo report. Continue carvedilol and titrate as possible. Entresto as discussed above. Consider biventricular ICD given QRS > 150 ms with left bundle-branch block on ECG. Current ICD information being requested. 3. Mitral regurgitation: Prior echo reports and cardiology notes requested for review. Discussed reported finding of severe mitral regurgitation with her and her daughter. It is not clear if this is a new diagnosis. 4. ICD: Recommend interrogation. Records reviewed from her primary palletiser operator to know the hydraulic strainer operator of her device. She reports no history of ICD shock. Consider possibility of upgrading to biventricular device given LBBB with QRS > 150 ms. 5. Left bundle-branch block: As noted above. 6. Disposition: She was admitted with weakness. She seems compensated from a cardiology standpoint. Titration of her medications can be done as an outpatient if she is otherwise ready for discharge. Palak Mckee of the Heart failure program plans on meeting with her today as well to help coordinate her heart failure care. This is Barajas would like to follow-up with Dr. Castro in the [place] office for convenience purposes. Her daughter, Krystal molina, was also contacted via telephone as per patient request. Patient care was communicated with her. Patient care communicated with Dr. Drew of the primary hospitalist service. Patient care communicated with Dr. Castro and Palak Mckee. Thank you for allowing me to participate in the care of your patient. Please call for any other questions or concerns. Sincerely, Guicho Santos M.D. History of Present Illness Reason for Consultation: Cardiomyopathy with chronic systolic CHF Requesting Physician: Dr. Anaya Attending Physician: Hardy Drew, DO History of Present Illness Mrs. Barajas is a pleasant 75-year-old female with history significant for CAD s/p PCI, cardiomyopathy s/p ICD, systolic CHF, dyslipidemia, and gastric bypass. She also has history of meningioma s/p Gamma knife. She has been followed by Dr. Mace for her cardiology care. She recalls having a history of CAD and has had 3 or 4 stents placed within her coronary arteries years ago in [place]. She does not have any further details. She has ICD placed 3-4 years ago. It is a single lead device. Other information such as hydraulic strainer operator of the device is not currently known but records are being requested for review. She recalls being hospitalized in the past for CHF, but once again years ago and not recently. She maintains a low-sodium diet. She does not check her weight on a daily basis but states that her weight has been stable. She was admitted on 12/15/2020 for weakness. She had fallen and was hospitalized at [place] recently. Her daughter, Krystal, was contacted via telephone and stated that when she came home, she was very weak, requiring multiple people to support her. She was taken back to the emergency department in [place], only to be once again discharged home. She denies syncope, near- syncope, ICD shock, chest pain, shortness of breath, orthopnea, paroxysmal nocturnal dyspnea, edema, palpitations, or bleeding such as melena, hematochezia, or hematuria. She was noted to be anemic of 8.3 on presentation. She was also noted to be hyperkalemic and was on oral potassium supplementation. She was given IV fluids in the emergency department. She had episode of diarrhea but denies diarrhea today. She uses a walker for ambulation. She feels as though she is much stronger now than presentation and hopes to go home soon. She expressed her desire to follow-up with [facility] cardiology as an outpatient in the [place] office. She stated that this would be more convenient for her then to travel to [place]. Review of systems: As above. Review of systems otherwise negative/unremarkable. Family history: Mother had CHF. Social history: She quit smoking over 10 years ago. No alcohol or drugs. She is and lives with her at her daughter's house. Her daughter, Krystal Molina, is a nurse at [employer]. She has 2 sons and 1 daughter. She has grandchildren. She lives in [place]. She is unaccompanied. Allergies Allergy/AdvReac Type Severity Reaction Status Date / Time red (food color) Allergy Verified 12/15/20 16:22 Iodinated Contrast Media AdvReac Unknown Unknown Unverified 12/15/20 07:26 Home Medications Medication Instructions Recorded Confirmed Type acetaminophen [Tylenol] 650 mg PO BID PRN 12/15/20 12/15/20 History albuterol sulfate 2.5 mg INHALATION Q6H PRN 12/15/20 12/15/20 History amitriptyline 50 mg PO HS 12/15/20 12/15/20 History bumetanide [Bumex] 1 mg PO BID 12/15/20 12/15/20 History clopidogrel [Plavix] 75 mg PO QAM 12/15/20 12/15/20 History cranberry 0 mg PO HS 12/15/20 12/15/20 History digoxin 125 mcg PO WK 12/15/20 12/15/20 History levothyroxine 100 mcg PO DAILYBB 12/15/20 12/15/20 History magnesium oxide 400 mg PO QAM 12/15/20 12/15/20 History nitroglycerin [Nitrostat] 0.4 mg SUBLINGUAL UD 12/15/20 12/15/20 History potassium chloride [Klor-Con] 20 meq PO QAM 12/15/20 12/15/20 History pravastatin 40 mg PO DAILY 12/15/20 12/15/20 History quetiapine 100 mg PO HS 12/15/20 12/15/20 History ranolazine [Ranexa] 1,000 mg PO BID 12/15/20 12/15/20 History Patient History Medical History (Updated 12/18/20 @ 08:58 by Luiz Santos MD) Anemia Cardiomyopathy Chronic systolic heart failure Depression Dyslipidemia Hypothyroidism ICD (implantable cardioverter-defibrillator) in place LBBB (left bundle branch block) Meningioma Mitral regurgitation Surgical History (Updated 12/18/20 @ 08:05 by Luiz Santos MD) H/O gastric bypass Family History (Updated 12/15/20 @ 08:15 by Rajendra Anaya MD) Other Cancer Coronary heart disease Diabetes Hypertension Social History Smoking Status: Former smoker Hx Alcohol Use: No Hx Substance Use: No Steel Checker Required: No Beliefs That Will Affect Care: Confucianism Current Living Situation: Family Other Information That Helps Us Care for You: No Feels Safe at Home: Yes Safety Concerns: Feels Safe At This Time Assistive Devices: Cane, Glasses and Walker Physical Exam Physical Exam: Gen.: No acute distress. Alert. HEENT: Anicteric sclera. Neck: No JVD. No bruits. Normal carotid upstrokes bilaterally. Cardiac: PMI was nondisplaced. No ventricular heave. Regular. Normal S1-S2. No murmurs, rubs, or gallops. Pulmonary: Clear to auscultation bilaterally without wheezes, rales, or rhonchi. Abdomen: Soft, nontender, nondistended, with normoactive bowel sounds. No bruits noted. Extremities: 2+ radial pulses bilaterally. 2+ posterior tibialis pulses bilaterally. Trace bilateral pedal edema. No cyanosis. Psychiatric: Affect appears appropriate. Results & Data ([facility]) Vital Signs (Past 12 Hours) Vital Signs Temp Pulse Pulse Resp BP BP Pulse Ox 12/18/20 07:47 36.8 C 77 14 119/65 119/65 100 12/18/20 07:38 36.8 C 61 20 125/57 L 97 12/18/20 03:09 36.8 C 64 18 102/58 L 98 12/18/20 02:33 82 12/17/20 23:00 36.9 C 76 20 100/57 L 99 12/17/20 22:32 36.9 C 78 16 106/64 97 Intake & Output 12/16/20 12/17/20 12/18/20 12/19/20 06:59 06:59 06:59 06:59 Intake Total 640 / 640 360 / 360 525 / 525 Output Total 700 / 700 700 / 700 Balance -60 / -60 -340 / -340 525 / 525 Weight 114 lb 6.719 oz 114 lb 10.246 oz Laboratory Results Laboratory Results - last 24 hr 12/18/20 12/18/20 05:59 05:59 WBC 6.58 RBC 2.89 L Hgb 9.0 L Hct 27.0 L MCV 93.4 MCH 31.1 MCHC 33.3 RDW Std Deviation 50.2 H RDW Coeff of Nazario 14.6 H Plt Count 338 MPV 9.2 Sodium 132 L Potassium 4.3 Chloride 100 Carbon Dioxide 28 Anion Gap 4.0 BUN 31 H Creatinine 1.06 Est Cr Clr Drug Dosing 37.4 Est GFR ( Amer) 60.3 Est GFR (Non-Af Amer) 52.0 BUN/Creatinine Ratio 29.0 H Glucose 88 Calcium 7.9 L Magnesium 2.2 Diagnostic Findings Chart reviewed. ECG personally reviewed: ECG 12/15/2020: Sinus rhythm with first-degree AV block at 82 beats per minute. LBBB. Echo 12/15/2020: Echo reported LVEF 25-30%. Akinesis of the apex, mid to distal septum/anteroseptum/anterior wall. Otherwise, hypokinesis globally. Severe mitral regurgitation. Severe left atrial dilation. Mild AI. RVSP 40-50. Chest x-ray 12/15/2020: No acute cardiopulmonary findings per Radiology. Chest x-ray image personally reviewed. ICD noted. Medications Administered Current Inpatient Medications Acetaminophen (Acetaminophen 325 Mg Tab) 650 mg PO Q4H PRN PRN Reason: Pain or Fever Stop: 01/14/21 10:47 Last Admin: 12/18/20 05:52 Dose: 650 mg Documented by: Al Hydrox/Mg Hydrox/Simethicone (Aluminum/Magnesium Susp 30 Ml Udc) 15 ml PO Q4H PRN PRN Reason: Dyspepsia Stop: 01/14/21 10:47 Bumetanide (Bumetanide 1 Mg Tab) 1 mg PO DAILY [facility] Stop: 01/14/21 11:29 Last Admin: 12/17/20 07:08 Dose: 1 mg Documented by: Carvedilol (Carvedilol 3.125 Mg Tab) 3.125 mg PO BID [facility] Stop: 01/15/21 20:59 Last Admin: 12/17/20 20:30 Dose: 3.125 mg Documented by: Clopidogrel Bisulfate (Clopidogrel Bisulfate 75 Mg Tab) 75 mg PO QAM [facility] Stop: 01/14/21 11:29 Last Admin: 12/17/20 07:09 Dose: 75 mg Documented by: Digoxin (Digoxin 0.125 Mg Tab) 0.125 mg PO Sa@1600 [facility] Stop: 01/15/21 15:59 Last Admin: 12/16/20 16:50 Dose: 0.125 mg Documented by: Pantoprazole Sodium 40 mg/ (Syringe) 10 mls @ 5 mls/min IV BID [facility] Stop: 01/14/21 11:29 Last Admin: 12/17/20 20:21 Dose: 5 mls/min Documented by: Levothyroxine Sodium (Levothyroxine Sodium 100 Mcg Tablet) 100 mcg PO DAILYBB [facility] Stop: 01/15/21 06:29 Last Admin: 12/18/20 05:52 Dose: 100 mcg Documented by: Magnesium Oxide (Magnesium Oxide 400 Mg Tab) 400 mg PO QAM [facility] Stop: 01/14/21 11:29 Last Admin: 12/17/20 07:11 Dose: 400 mg Documented by: Ondansetron HCl (Ondansetron Inj 2 Mg/Ml 2 Ml Vial) 4 mg IV Q6H PRN PRN Reason: Nausea Stop: 01/14/21 10:47 Last Admin: 12/15/20 21:52 Dose: 4 mg Documented by: Pravastatin Sodium (Pravastatin Sod 40 Mg Tab) 40 mg PO DAILY [facility] Stop: 01/14/21 11:29 Last Admin: 12/17/20 07:09 Dose: 40 mg Documented by: Pyridoxine HCl (Pyridoxine Hcl 50 Mg Tab) 50 mg PO QAM [facility] Stop: 01/15/21 08:59 Last Admin: 12/17/20 07:09 Dose: 50 mg Documented by: Ranolazine (Ranolazine 500 Mg Er Tab) 1,000 mg PO BID [facility] Stop: 01/14/21 11:29 Last Admin: 12/17/20 20:30 Dose: 1,000 mg Documented by: Thiamine HCl (Thiamine Hcl 100 Mg Tab) 100 mg PO QAM [facility] Stop: 01/15/21 08:59 Last Admin: 12/17/20 07:08 Dose: 100 mg Documented by: PG Care Time/CCT Total # of Minutes Spent Total Time Spent with Patient: Total time spent is greater than 50% in coordination of care (as documented) at patient's floor/unit and/or counseling patient: Coding Level of Care Code 35455 Initial Inpt Care Lvl 2 Diagnoses Chronic systolic heart failure I50.22 Cardiomyopathy I42.9 Mitral regurgitation I34.0 ICD (implantable cardioverter-defibrillator) in place Z95.810 LBBB (left bundle branch block) I44.7
[2020-12-18] MEDS: BUMETANIDE 1 MG TAB PO SCH (09:28)
[2020-12-18] MEDS: CLOPIDOGREL BISULFATE 75 MG TAB PO SCH (09:28)
[2020-12-18] MEDS: carvediloL 3.125 MG TAB PO SCH ×2 (09:28→20:54)
[2020-12-18] MEDS: PANTOprazole 40 MG in SYRINGE 0 ML IV SCH ×2 (09:29→20:54)
[2020-12-18] MEDS: THIAMINE HCL 100 MG TAB PO SCH (09:29)
[2020-12-18] MEDS: RANOLAZINE 500 MG ER TAB PO SCH ×2 (09:29→20:54)
[2020-12-18] MEDS: PRAVASTATIN SOD 40 MG TAB PO SCH (09:29)
[2020-12-18] MEDS: PYRIDOXINE HCL 50 MG TAB PO SCH (09:29)
[2020-12-18] MEDS: MAGNESIUM OXIDE 400 MG TAB PO SCH (10:17)
--- NOTE | 2020-12-18 14:45 | Hospitalist Progress Note ---
Date of Service December 18, 2020 Assessment & Plan (1) Fall: Patient sustained a fall at home. Previous admissions to [facility] did also include fall as one of her diagnosis. Reportedly in the past she has been resistant to rehab placement. Reportedly last physical therapy states she did walk 70 feet with a rolling walker. Subsequently will evaluate for metabolic causes impacting her strength weakness and balance no falls here, walked 140 feet today, no balance issues awaiting ICD interrogation Echocardiography shows EF to be 25 to 30% moderate to severely reduced systolic function of left ventricle entire apex and mid to distal septum anterior septum anterior and wall are akinetic with severely hypokinetic remaining jones, severe MR and elevated right heart pressures we did cut quetiapine and amitriptyline from her regime, pt is more awake and alert, she wants to continue to hold these on discharge she feels she was over medicated (2) Anemia: Patient's hemoglobin is 8.3 on presentation, her MCV is normal but she does have an widened RDW. She denies melena at home. 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 She typically is not on a PPI. She will be started on such. And as mentioned in her cardiac area aspirin will be held. hgb is stable not clear etiology at this point will vitamin indices show low normal iron and low tibc and normal b 12, will restart aspirin and continue protonix Hb stable, no further work up at this time could be done as outpatient (3) Chronic systolic heart failure: much improved she will plan to follow up with Dr. Castro in [place] office continue diuretics, Coreg would be good candidate for Entresto also, good candidate for dual chamber pacer as she has LBBB pattern follow up with Palak SCHREIBER with CHF clinic (4) Hypothyroidism: Patient is maintained on her Synthroid typical dosing is 100 mcg TSH was slightly elevated on presentation but T4 was appropriate (5) Depression: Patient continues on Paxil for depression (6) Dyslipidemia: Patient is on pravastatin for dyslipidemia, question if will benefit from high intensity statin (7) Hyperkalemia: Patient is on oral potassium supplementation. Cortisol level be checked. Patient's renal function is appropriate. (8) Diarrhea: Isolated episode of diarrhea patient has C. difficile tested negative enterics are currently pending (9) DVT prophylaxis: SCD use given her anemia Admission and Anticipated Discharge Date Admission Date: December 15, 2020 Subjective patient doing well, breathing comfortably eating much better past few days discussed going home with home health as she walked 140 feet today without any balance issues she agrees but family cannot take until tomorrow discussed with CM, home health arranged Review of Systems Review of Systems: All systems reviewed & are unremarkable except as noted in Subjective Physical Exam Constitutional: WD/WN, vitals as above + thin and + frail appearing Neck: trachea midline, no thyromegaly Respiratory: normal respiratory effort, lungs clear to auscultation Cardiovascular: RRR, no murmur, no edema Gastrointestinal (Abdomen): normal bowel sounds, soft, nontender, no hepatosplenomegaly Musculoskeletal: no cyanosis or clubbing, extremities motor strength 5/5 Skin: no rashes, warm and dry Neurologic: patellar DTR's 2+ bilat, sensation intact and PERRL, EOMI, accommodation nl, no face palsy, no dysarthria Psychiatric: A+Ox3, euthymic affect Results & Data Results & Data ([facility]) Vital Signs (Past 12 Hours) Vital Signs Temp Pulse Pulse Resp BP BP Pulse Ox 12/18/20 11:59 36.4 C L 56 L 15 124/70 100 12/18/20 07:47 36.8 C 77 14 119/65 100 12/18/20 07:38 36.8 C 61 20 125/57 L 97 12/18/20 07:00 71 12/18/20 03:09 36.8 C 64 18 102/58 L 98 Laboratory Results Laboratory Results - last 24 hr 12/16/20 12/18/20 12/18/20 07:13 05:59 05:59 WBC 6.58 RBC 2.89 L Hgb 9.0 L Hct 27.0 L MCV 93.4 MCH 31.1 MCHC 33.3 RDW Std Deviation 50.2 H RDW Coeff of Nazario 14.6 H Plt Count 338 MPV 9.2 Sodium 132 L Potassium 4.3 Chloride 100 Carbon Dioxide 28 Anion Gap 4.0 BUN 31 H Creatinine 1.06 Est Cr Clr Drug Dosing 37.4 Est GFR ( Amer) 60.3 Est GFR (Non-Af Amer) 52.0 BUN/Creatinine Ratio 29.0 H Glucose 88 Calcium 7.9 L Magnesium 2.2 Cortisol AM Sample 10.88 Medications Administered Current Inpatient Medications Acetaminophen (Acetaminophen 325 Mg Tab) 650 mg PO Q4H PRN PRN Reason: Pain or Fever Stop: 01/14/21 10:47 Last Admin: 12/18/20 05:52 Dose: 650 mg Documented by: Al Hydrox/Mg Hydrox/Simethicone (Aluminum/Magnesium Susp 30 Ml Udc) 15 ml PO Q4H PRN PRN Reason: Dyspepsia Stop: 01/14/21 10:47 Bumetanide (Bumetanide 1 Mg Tab) 1 mg PO DAILY [facility] Stop: 01/14/21 11:29 Last Admin: 12/18/20 09:28 Dose: 1 mg Documented by: Carvedilol (Carvedilol 3.125 Mg Tab) 3.125 mg PO BID [facility] Stop: 01/15/21 20:59 Last Admin: 12/18/20 09:28 Dose: 3.125 mg Documented by: Clopidogrel Bisulfate (Clopidogrel Bisulfate 75 Mg Tab) 75 mg PO QAM [facility] Stop: 01/14/21 11:29 Last Admin: 12/18/20 09:28 Dose: 75 mg Documented by: Digoxin (Digoxin 0.125 Mg Tab) 0.125 mg PO Sa@1600 [facility] Stop: 01/15/21 15:59 Last Admin: 12/16/20 16:50 Dose: 0.125 mg Documented by: Pantoprazole Sodium 40 mg/ (Syringe) 10 mls @ 5 mls/min IV BID [facility] Stop: 01/14/21 11:29 Last Admin: 12/18/20 09:29 Dose: 5 mls/min Documented by: Levothyroxine Sodium (Levothyroxine Sodium 100 Mcg Tablet) 100 mcg PO DAILYBB [facility] Stop: 01/15/21 06:29 Last Admin: 12/18/20 05:52 Dose: 100 mcg Documented by: Magnesium Oxide (Magnesium Oxide 400 Mg Tab) [facility] Stop: 01/14/21 11:29 Last Admin: 12/18/20 10:17 Dose: 400 mg Documented by: Ondansetron HCl (Ondansetron Inj 2 Mg/Ml 2 Ml Vial) 4 mg IV Q6H PRN PRN Reason: Nausea Stop: 01/14/21 10:47 Last Admin: 12/15/20 21:52 Dose: 4 mg Documented by: Pravastatin Sodium (Pravastatin Sod 40 Mg Tab) 40 mg PO DAILY [facility] Stop: 01/14/21 11:29 Last Admin: 12/18/20 09:29 Dose: 40 mg Documented by: Pyridoxine HCl (Pyridoxine Hcl 50 Mg Tab) 50 mg PO QAM [facility] Stop: 01/15/21 08:59 Last Admin: 12/18/20 09:29 Dose: 50 mg Documented by: Ranolazine (Ranolazine 500 Mg Er Tab) 1,000 mg PO BID [facility] Stop: 01/14/21 11:29 Last Admin: 12/18/20 09:29 Dose: 1,000 mg Documented by: Thiamine HCl (Thiamine Hcl 100 Mg Tab) 100 mg PO QAM [facility] Stop: 01/15/21 08:59 Last Admin: 12/18/20 09:29 Dose: 100 mg Documented by: PG Care Time/CCT Total # of Minutes Spent Total Time Spent with Patient: Total time spent is greater than 50% in coordination of care (as documented) at patient's floor/unit and/or counseling patient: Coding Level of Care Code 62950 Subseq Hosp Care Lvl 2 Diagnoses Fall W19.XXXA Anemia D64.9 Chronic systolic heart failure I50.22 Hypothyroidism E03.9 Depression F32.9 Dyslipidemia E78.5 Hyperkalemia E87.5 Diarrhea R19.7 DVT prophylaxis Z29.9
[2020-12-19] MEDS: LEVOTHYROXINE SODIUM 100 MCG TABLET PO SCH (05:36)
[2020-12-19 07:50] LABS: Mean Corpuscular Hemoglobin 31.3 pg (25-34); Mean Corpuscular Hgb Conc 33.3 g/dL (32-36); Mean Corpuscular Volume 93.8 fL (80-100); Mean Platelet Volume 9.4 fL (7.4-10.4); Platelet Count 349 K/uL (130-400); RDW Coefficient of Variation 14.6 % (11.5-14.5); RDW Standard Deviation 50.2 fL (36.4-46.3); Red Blood Count 2.88 M/uL (4.2-5.4); White Blood Count 6.13 K/uL (4.8-10.8)
[2020-12-19 08:27] LABS: BUN Creatinine Ratio 31.8 (10-20); Calcium 7.7 mg/dl (8.5-10.1); Creatinine Clr Calc Pharmacy 37.4 ml/min; Est GFR (African American) 60.3 ml/min; Potassium 4.4 mmol/L (3.5-5.1)
[2020-12-19] MEDS: MAGNESIUM OXIDE 400 MG TAB PO SCH (09:19)
[2020-12-19] MEDS: CLOPIDOGREL BISULFATE 75 MG TAB PO SCH (09:19)
[2020-12-19] MEDS: carvediloL 3.125 MG TAB PO SCH (09:19)
[2020-12-19] MEDS: BUMETANIDE 1 MG TAB PO SCH (09:19)
[2020-12-19] MEDS: PANTOprazole 40 MG in SYRINGE 0 ML IV SCH (09:20)
[2020-12-19] MEDS: PRAVASTATIN SOD 40 MG TAB PO SCH (09:20)
[2020-12-19] MEDS: THIAMINE HCL 100 MG TAB PO SCH (09:20)
[2020-12-19] MEDS: RANOLAZINE 500 MG ER TAB PO SCH (09:20)
[2020-12-19] MEDS: PYRIDOXINE HCL 50 MG TAB PO SCH (09:20)
--- NOTE | 2020-12-19 10:06 | Discharge Summary ---
Date of Service December 19, 2020 Admission HPI Per Admitting Provider 75 F with weakness and mechaincal fall at home with associated diarrhea, recently discharged from [facility] Principal Diagnosis Weakness and falls, suspected to be due to polypharmacy Discharge Exam Constitutional WD/WN, vitals as above + thin and + frail appearing Neck trachea midline, no thyromegaly Respiratory normal respiratory effort, lungs clear to auscultation Cardiovascular RRR, no murmur, no edema Gastrointestinal (Abdomen) normal bowel sounds, soft, nontender, no hepatosplenomegaly Musculoskeletal no cyanosis or clubbing, extremities motor strength 5/5 Skin no rashes, warm and dry Neurologic patellar DTR's 2+ bilat, sensation intact and PERRL, EOMI, accommodation nl, no face palsy, no dysarthria Psychiatric A+Ox3, euthymic affect Discharge Data Allergies Allergy/AdvReac Type Severity Reaction Status Date / Time red (food color) Allergy Verified 12/15/20 16:22 Iodinated Contrast Media AdvReac Unknown Unknown Unverified 12/15/20 07:26 Consultations 12/17/20 13:06 [facility] CHF Program Referral Routine 12/17/20 17:06 Consult Cardiology Routine Hospital Course (1) Fall: Patient sustained a fall at home. Previous admissions to [facility] did also include fall as one of her diagnosis. Reportedly in the past she has been resistant to rehab placement. Reportedly last physical therapy states she did walk 70 feet with a rolling walker. Subsequently will evaluate for metabolic causes impacting her strength weakness and balance no falls here, walked 140 feet today, no balance issues no issues on telemetry Echocardiography shows EF to be 25 to 30% moderate to severely reduced systolic function of left ventricle entire apex and mid to distal septum anterior septum anterior and wall are akinetic with severely hypokinetic remaining jones, severe MR and elevated right heart pressures discontinued quetiapine and amitriptyline at time of admission, pt is more awake and alert, she wants to continue to hold these on discharge she feels she was over medicated safe for discharge to home with her daughter and home health has been arranged for close follow up in the home (2) Anemia: Patient's hemoglobin is 8.3 on presentation, her MCV is normal but she does have an widened RDW. She denies melena at home. 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 She typically is not on a PPI. She will be started on such. And as mentioned in her cardiac area aspirin will be held. hgb is stable not clear etiology at this point will vitamin indices show low normal iron and low tibc and normal b 12, will restart aspirin and continue protonix Hb stable, no further work up at this time could be done as outpatient (3) Chronic systolic heart failure: much improved she will plan to follow up with Dr. Castro in [place] office of note, her Bumex was reduced from 1mg twice a day on just once a day started on carvedilol 3.125mg BID would be good candidate for Entresto also, good candidate for dual chamber pacer as she has LBBB pattern follow up with Palak SCHREIBER with CHF clinic CHF instructions provided (4) Hypothyroidism: Patient is maintained on her Synthroid typical dosing is 100 mcg TSH was slightly elevated on presentation but T4 was appropriate (5) Depression: Patient continues on Paxil for depression (6) Dyslipidemia: Patient is on pravastatin for dyslipidemia, question if will benefit from high intensity statin (7) Hyperkalemia: resolved, will cut her oral potassium to 20mEq (8) Diarrhea: Isolated episode of diarrhea patient has C. difficile tested negative (9) Insomnia: very anxious at night, worried about not sleeping stopped the Amitriptyline and Seroquel as she felt lethargic and weak during the day will try lorazepam 0.5mg HS PRN for sleep aide, short prescription provided to see if she can tolerated follow up with Dr. Beard to discuss further (10) DVT prophylaxis: SCD use given her anemia I certify that this patient is under my care and that I, or a physicians campaign assistant working with me, had a face to-face encounter that meets the home health [id number] encounter requirements with this patient. The encounter with the patient was in whole, or in part, for the following medical condition, which is the primary reason for home health care (list medical condition): fall I certify that, based on my findings, the following services are medically necessary home health services: My clinical findings support the need for the above services because: Home Safety Assessment OT Assess ADL Status and Restore Function w ADLs PT Gait and Balance Training, Strengthening and Safety Skilled Nsg Assessment Further, I certify that my clinical findings support that this patient is homebound (i.e. absences from home require considerable and taxing effort and are for medical reasons or buddhist services or infrequently or of short duration when for other reasons) because: Assistance of 1 Person for Ambulation/Activities Certification for Home Health Services: Based on the above findings, I certify that this patient is confined to the home and needs intermittent mcfp care, physical therapy and/or speech therapy or continues to need occupational therapy. The patient is under my care, and I have initiated the establishment of the plan of care. This patient will be followed by a physician who will periodically review the plan of care. Total Time Total Time Spent Total Time Spent (In Minutes): 33 Total Time Includes: Examination of the Patient, Discharge Planning, Medication Reconciliation and Communication With Other Providers Discharge Plan Discharge Items Patient Disposition: Home - Home Health Services Reason For Visit: WEAKNESS AND FALL DIARRHEA Discharge Diagnosis: Acute on chronic systolic heart failure Weakness and falls, suspect due to polypharmacy (medications) Condition on Discharge: Good Goals: follow up closely with CHF clinic Activity: Resume your previous activity Non-emergency contact: Primary Care Provider Call non-emergency contact if: you have any medication questions and your symptoms worsen Follow-up/Referrals: Alberto Castro MD [Physician] - (4 weeks, [place] office) Palak Mckee PA-C [Physician Prescription Benefit Specialist] - (1 week) Rock Beard [Primary Care Provider] - (one week) Diet: Heart Healthy Fluids: 2000ml (8 cups) Addtl Attending Provider Instructions: Medications: note that several doses have been changed, some new medications - BUMEX: reduced to 1mg ONCE a day, you were previously taking twice a day - CARVEDILOL: 3.125mg twice a day, this is for chronic systolic heart failure - LORAZEPAM: take 0.5mg at night to help sleep if you have anxiety, insomnia stopped SEROQUEL and AMITRIPTYLINE please follow heart failure instructions, specifically please weigh yourself every morning to make sure you are not gaining weight which would indicate fluid retention Palak SCHREIBER with heart failure clinic will be your best contact to help you manage heart failure you will follow up with Dr. Castro, cardiology, as well to discuss further options such as biventricular pacemaker, but that can wait Call 911 and go to the Emergency Room if: * You have tightness or pain in your chest that does not go away with rest or Nitroglycerin * You are very short of breath even with rest Call your doctor if any of the following symptoms or problems start or get worse: * Shortness of breath or difficulty breathing * Wake up at night short of breath * Chest pain * Cough * Swelling of your hands, fee, or legs * More fatigued or tired with your normal activity * Palpitations - sudden fast heart beats WEIGHT * Weigh yourself every morning after using the bathroom. * Use the same scale. * Wear the same amount of clothing. * Write your weight down on your chart. * Call your doctor if you gain more than 2-3 pounds in 1-2 days. MEDICATIONS * Use this discharge instruction sheet for instructions. * Take your medications at the time your doctor ordered. * Do not skip a dose of your medicines. * If you miss a dose of medicine, take as soon as possible, but DO NOT DOUBLE A DOSE. * Read your medicine information when you get home. * Know all of the side effects of your medicine. * Call your doctor's office if you have any side effects. * Be sure all of your doctors know what medicine and herbs you take (including cold, flu, and herbal medicine). * Pain Medicine: If you do not get relief from your pain, please call your doctor for help. Take the following with you to your follow-up doctor appointments: * Weight Chart * Medication List * List of questions Do not drink excessive alcohol, beer or wine. Pending Studies at Discharge: No Stand-Alone Forms: [facility], Smoking Cessation Medications and DC Order Prescriptions: New carvedilol 3.125 mg Tablet 3.125 mg PO BID 30 Days Qty: 60 RF: 3 bumetanide 1 mg Tablet 1 mg PO DAILY 30 Days Qty: 30 RF: 3 lorazepam 0.5 mg tablet 0.5 mg PO HS PRN (Reason: sleep) Qty: 14 RF: 0 Continued acetaminophen [Tylenol] 325 mg Tablet 650 mg PO BID PRN (Reason: Pain) RF: 0 albuterol sulfate 2.5 mg /3 mL (0.083 %) Solution For Nebulization 2.5 mg INHALATION Q6H PRN (Reason: Shortness Of Breath) RF: 0 pravastatin 40 mg Tablet 40 mg PO DAILY RF: 0 clopidogrel [Plavix] 75 mg Tablet 75 mg PO QAM RF: 0 levothyroxine 100 mcg Tablet 100 mcg PO DAILYBB RF: 0 potassium chloride [Klor-Con] 20 mEq Packet 20 meq PO QAM RF: 0 nitroglycerin [Nitrostat] 0.4 mg Tablet, Sublingual 0.4 mg sublingual UD RF: 0 cranberry 400 mg Capsule 0 mg PO HS RF: 0 digoxin 125 mcg (0.125 mg) Tablet 125 mcg PO WK RF: 0 ranolazine [Ranexa] 1,000 mg Tablet Extended Release 12 Hr 1,000 mg PO BID RF: 0 magnesium oxide 400 mg magnesium Tablet 400 mg PO QAM RF: 0 Discontinued quetiapine 100 mg Tablet 100 mg PO HS RF: 0 amitriptyline 50 mg Tablet 50 mg PO HS RF: 0 bumetanide [Bumex] 1 mg Tablet 1 mg PO BID RF: 0 Discharge Orders: Discharge Order (Routine); Ordered 12/19/20 Ordered By: Hardy Drew Admission Data Admit Date/Time: 12/15/20 07:29 Attending Provider: Hardy Drew Admit Provider: Rajendra Anaya Primary Care Provider: Rock Beard Other Providers: Palak Mckee ; Alberto Castro Coding Level of Care Code D/C Day Management >30 mins Diagnoses Fall W19.XXXA Anemia D64.9 Chronic systolic heart failure I50.22 Hypothyroidism E03.9 Depression F32.9 Dyslipidemia E78.5 Hyperkalemia E87.5 Diarrhea R19.7 Insomnia G47.00 DVT prophylaxis Z29.9
--- NOTE | 2020-12-27 09:06 | Coding Query ---
CODING QUERY To promote full compliance with coding requirements relating to patient care, provider participation is requested in all cases of moving picture producer uncertainty. Please assist us with the question(s) below: Coding Question(s): Severe Protein Calorie Malnutrition is documented on progress note but not on Discharge. Please clarify below: (x ) Patient has Severe Protein Calorie Malnutrition ( ) Severe Protein Calorie Malnutrition Ruled Out ( ) Other Please Explain: Thank you Aubrey Tabor Principal Diagnosis: "that condition established after study, to be chiefly responsible for occasioning the admission of the patient to the hospital for care." Co-Existing Principal Diagnosis: "when two or more diagnoses equally meet the criteria for principal diagnosis as determined by the circumstances of admission, diagnostic work up, and/or therapy provided, and the Alphabetic Index, Tabular List, or another coding guideline does not provide sequencing direction, any one of the diagnoses may be sequenced first." "When the physician has documented what appears to be a current diagnosis in the body of the record, but has not included the diagnosis in the final diagnostic statement, the physician should be asked whether the diagnosis should be added." (Source [facility] 2 QTR90. p3-4) MYA
--- NOTE | 2020-12-27 09:08 | Coding Query ---
CODING QUERY To promote full compliance with coding requirements relating to patient care, provider participation is requested in all cases of manager of it uncertainty. Please assist us with the question(s) below: Coding Question(s): Acute on Chronic Systolic Heart Failure is documented on Discharge but not anywhere else in chart. Please clarify below: -Systolic Heart Failure ( ) Acute ( ) Chronic (x ) Acute on Chronic ( ) Other Please Explain: Thank you Aubrey Tabor Principal Diagnosis: "that condition established after study, to be chiefly responsible for occasioning the admission of the patient to the hospital for care." Co-Existing Principal Diagnosis: "when two or more diagnoses equally meet the criteria for principal diagnosis as determined by the circumstances of admission, diagnostic work up, and/or therapy provided, and the Alphabetic Index, Tabular List, or another coding guideline does not provide sequencing direction, any one of the diagnoses may be sequenced first." "When the physician has documented what appears to be a current diagnosis in the body of the record, but has not included the diagnosis in the final diagnostic statement, the physician should be asked whether the diagnosis should be added." (Source Coding Clinic 2 QTR90. p3-4) MYA
== END 2020-12-19 11:47 | disposition home health service (06) | DRG 91 ==
LOC: ED 03:42 → SUATTDRO 07:29 → EDINP 07:29 → 2E 12:09 → 2N 12-17 11:14

== ENCOUNTER 2021-02-20 23:48 | Inpatient (IN) ==
--- NOTE | 2021-02-21 00:06 | Emergency Department Note ---
Impression & Plan Adult failure to thrive, Congestive heart failure ED Provider Note Name: ADDIE VAZQUEZ Age: 75 Sex: F Arrives Via: Ambulance Informant: Patient, EMS ED Provider: Willie Foster MD Chief Complaint: Weakness Impression: See Above Medical Decision Makin yr old chronically unwell patient with known severe CHF who was just released from [facility] with plan for hospice to see patient this morning 02/21 though patient too unwell for family to care for at home and thus EMS contacted and she was brought here. She is qutie unwell, though not in any distress on my evaluation. Cachectic with diffuse crackles lung ajma. She is comfortable with hospice plan but seems that discharge to home at this time not available. I discussed case with hospitalist who will evaluate further Prior Medical Record and Triage/Nursing Notes reviewed by Me Additional history obtained from chart Differentials:Infection, dehydration, metabolic abnormality, hypo/hyperglycemia, electrolyte disturbance, anemia, hypoxia, cardiac sources, intracerebral event, toxicologic, neurologic, as well as other pathologies. Vital Signs: reviewed and remarkable for mild hypotension Labs:Reviewed and remarkable for very high bnp, mild hyperkalemia Imaging:X ray results are stated below per my interpretation: Chest: 1 view: congestive failure EKG:Per My Interpretation: Indication Weakness: NSR 76 bpm, qtc 499 with LBBB. No Ectopy. No Ischemia. Compared to EKG 12/15/20, no significant changes. Cardiac/Tele Monitoring: Cardiac Monitoring: An Order was placed for continuous cardiac monitoring. The monitor shows a rate of NSR with a 70 rhythm. Consults:Dr Kyler KEITH Hospitalist Plan: Disposition:Hospitalization. Referred to: PCP Condition: Poor History of Present Illness:75 yr old chronically unwell female arrives for evaluation of weakness. Patient notes several weeks of worsening weakness, fatigue and shortness of breath. She was admitted to [place] last week and spent 3 days in ED at that time due to no available beds. Discharged feeling a bit better but worsening weakness throughout weekend. Unable to walk, stand nor get around. She was to be seen by hospice tomorrow but due to worsening condition family called EMS. Patient notes severe fatigue and some shortness of breath, but denies chest pain, abdominal pain, weakness. No medications prior to arrival. No falls, trauma, injuries. Notes abdominal pain chronically but no pain currently. ROS: See above HPI for pertinent positives & negatives. A total of 10 systems reviewed and were otherwise negative. Past Medical History:See Below Past Surgical History:See Below Family History:See Below Social History:See Below Home Medications:See Below Allergies:IV dye Vitals:Blood Pressure: 100/74, Pulse 77, RR 20, T 36.5C, O2 100% on 2L Physical Exam: GENERAL: Patient is chronically unwell appearing and in mild distress. Cachectic EYES: No scleral icterus, unremarkable pupils. ENT: Mucous membranes dry, no nasal congestion. NECK: No masses appreciated, nomeningismus, trachea is midline. RESPIRATORY: No dyspnea. Clear to auscultation and equal bilaterally. No wheeze, no rhonchi. CARDIOVASCULAR: Regular rate and rhythm.No murmurs, rubs, gallops appreciated. GASTROINTESTINAL: Abdomen soft, non-tender, no peritonitis.Bowel sounds positive.No masses appreciated. BACK: No midline tenderness, no CVA tenderness EXTREMITIES: Normal motion all extremities, no cyanosis, no edema. NEUROLOGIC: Somnolent, tired, no acute motor or sensory deficits, no focal weakness, cranial nerves grossly intact. SKIN: No rash, no jaundice, no diaphoresis. PSYCH: Appropriate GCS: 15 ED Course: Times/Reassessments: stable, breathing comfortably on NC O2, patient agreeable to hospice plan and avoid aggressive measures at this time. Willie Foster MD Past Med/Surg History Medical History (Updated 02/21/21 @ 04:59 by Willie Foster MD) Acute hyperkalemia Acute hypotension Anemia Cardiomyopathy Chronic systolic heart failure Depression Dyslipidemia Fall Hypothyroidism ICD (implantable cardioverter-defibrillator) in place LBBB (left bundle branch block) Meningioma Mitral regurgitation Surgical History (Updated 12/18/20 @ 08:05 by Luiz Santos MD) H/O gastric bypass Family History (Updated 12/15/20 @ 08:15 by Rajendra Anaya MD) Other Cancer Coronary heart disease Diabetes Hypertension Social History Smoking Status: Current every day smoker Hx Alcohol Use: No Hx Substance Use: No Preferred Language: Kinyarwanda Communication Ability: Effective Tabber Required: No Beliefs That Will Affect Care: Mormonism marital status: Current Living Situation: Family Feels Safe at Home: Yes Assistive Devices: Denture - Upper and Denture - Lower Allergies Allergies Allergy/AdvReac Type Severity Reaction Status Date / Time red (food color) Allergy Unknown Verified 02/21/21 02:40 Iodinated Contrast Media AdvReac Unknown Unknown Unverified 02/21/21 02:40 Home Meds Home Medications Medication Instructions Recorded Confirmed clopidogrel 75 mg tablet (Plavix) 75 mg PO QAM 12/15/20 02/21/21 digoxin 125 mcg (0.125 mg) tablet 125 mcg PO 2XWK 12/15/20 02/21/21 levothyroxine 100 mcg tablet 100 mcg PO DAILYBB 12/15/20 02/21/21 magnesium oxide 400 mg PO QAM 12/15/20 02/21/21 ranolazine 1,000 mg 1,000 mg PO BID 12/15/20 02/21/21 tablet,extended release,12 hr (Ranexa) amitriptyline 25 mg tablet 50 mg PO HS 02/21/21 02/21/21 atorvastatin 10 mg tablet 10 mg PO HS 02/21/21 02/21/21 metoprolol succinate 25 mg 12.5 mg PO DAILY 02/21/21 02/21/21 tablet,extended release 24 hr paroxetine HCl 40 mg tablet 20 mg PO DAILY 02/21/21 02/21/21 quetiapine 100 mg tablet 100 mg PO QPM 02/21/21 02/21/21 spironolactone 25 mg tablet 25 mg PO DAILY 02/21/21 02/21/21 Previous Rx's Medication Instructions Recorded bumetanide 1 mg tablet 1 mg PO DAILY 30 Days #30 tab 12/19/20 Results & Data (ED) Vital Signs Vital Signs - 24 hr 02/20/21 23:57 02/21/21 01:01 02/21/21 01:30 Temperature 36.5 C Temperature Source Oral Pulse Rate 77 Pulse Rate [Apical] 79 71 Pulse Rate from SpO2 Sensor Respiratory Rate 20 18 18 Blood Pressure 100/74 Blood Pressure [Left Arm] 97/64 L 93/63 L Blood Pressure Mean 82 Blood Pressure Mean [Left Arm] 75 73 Pulse Oximetry 100 97 98 Oxygen Delivery Method Nasal Cannula Nasal Cannula Nasal Cannula Oxygen Flow Rate 2 2 2 Sepsis Recent Fever Within 48 Hours No Sepsis New/Unexplained Change in Mental Status No Sepsis Action Taken by Nursing No Action Required 02/21/21 02:00 02/21/21 02:30 02/21/21 03:00 Temperature Temperature Source Pulse Rate 75 Pulse Rate [Apical] 78 68 Pulse Rate from SpO2 Sensor 76 Respiratory Rate 18 18 16 Blood Pressure 88/62 L Blood Pressure [Left Arm] 90/70 L 98/69 L Blood Pressure Mean 70 Blood Pressure Mean [Left Arm] 76 78 Pulse Oximetry 100 98 100 Oxygen Delivery Method Nasal Cannula Nasal Cannula Oxygen Flow Rate 2 2 Sepsis Recent Fever Within 48 Hours Sepsis New/Unexplained Change in Mental Status Sepsis Action Taken by Nursing 02/21/21 04:00 Temperature Temperature Source Pulse Rate 76 Pulse Rate [Apical] Pulse Rate from SpO2 Sensor 75 Respiratory Rate 16 Blood Pressure 102/62 Blood Pressure [Left Arm] Blood Pressure Mean 75 Blood Pressure Mean [Left Arm] Pulse Oximetry 100 Oxygen Delivery Method Oxygen Flow Rate Sepsis Recent Fever Within 48 Hours Sepsis New/Unexplained Change in Mental Status Sepsis Action Taken by Nursing Laboratory Data Result diagrams: 02/21/21 00:45 02/21/21 00:45 Lab Results 02/21/21 02/21/21 02/21/21 Range/Units 00:20 00:20 00:45 WBC (4.8-10.8) K/uL RBC (4.2-5.4) M/uL Hgb (12.0-16.0) g/dL Hct (37-47) % MCV (80-100) fL MCH (25-34) pg MCHC (32-36) g/dL RDW Std Deviation (36.4-46.3) fL RDW Coeff of Nazario (11.5-14.5) % Plt Count (130-400) K/uL MPV (7.4-10.4) fL Immature Gran % (Auto) % Neut % (Auto) % Lymph % (Auto) % [place] % (Auto) % Eos % (Auto) % Baso % (Auto) % Neut # (Auto) (1.4-6.5) K/uL Lymph # (Auto) (1.2-3.4) K/uL [place] # (Auto) (0.11-0.59) K/uL Eos # (Auto) (0-0.5) K/uL Baso # (Auto) (0-0.2) K/uL Immature Gran # (Auto) (0.00-0.02) K/uL PT (9.0-12.0) Seconds INR (0.9-1.1) Sodium 135 L (136-145) mmol/L Potassium 5.7 H (3.5-5.1) mmol/L Chloride 104 (98-107) mmol/L Carbon Dioxide 27 (21-32) mmol/L Anion Gap 4.0 (3-11) BUN 34 H (7-18) mg/dl Creatinine 1.38 H (0.6-1.2) mg/dl Est Cr Clr Drug Dosing 28.7 ml/min Est GFR ( Amer) 43.8 ml/min Est GFR (Non-Af Amer) 37.8 ml/min BUN/Creatinine Ratio 24.6 H (10-20) Glucose 148 H (70-99) mg/dl Calcium 8.3 L (8.5-10.1) mg/dl Phosphorus 4.1 (2.5-4.9) mg/dl Magnesium 1.8 (1.8-2.4) mg/dl Total Bilirubin 0.7 (0.2-1) mg/dl Direct Bilirubin 0.5 H (0-0.2) mg/dl AST 52 H (15-37) U/L ALT 30 (12-78) U/L Alkaline Phosphatase 164 H (45-117) U/L Troponin I 0.030 (0-0.045) ng/ml NT-Pro-B Natriuret Pep 04423 H (0-900) pg/ml Total Protein 6.1 L (6.4-8.2) gm/dl Albumin 2.5 L (3.4-5.0) gm/dl Lipase 139 (73-393) U/L Urine Color Urine Appearance (Clear) Urine pH (4.5-7.5) Ur Specific [place] (1.000-1.030) Urine Protein (Negative) Urine Glucose (UA) (Negative) Urine Ketones (Negative) Urine Blood (Negative) Urine Nitrite (Negative) Urine Bilirubin (Negative) Urine Urobilinogen (Negative) Ur Leukocyte Esterase (Negative) Urine WBC (Auto) (0-5) /hpf Urine RBC (Auto) (0-4) /hpf U Hyaline Cast (Auto) (0-5) /lpf U Epithel Cells (Auto) (0-5) /lpf Urine Bacteria (Auto) (Negative) Digoxin (0.8-2.0) ng/ml COVID-19 Eval Order Covid19 at [facility] SARS-CoV-2 (PCR) NEGATIVE (Negative) 02/21/21 02/21/21 02/21/21 Range/Units 00:45 00:45 00:45 WBC 7.60 (4.8-10.8) K/uL RBC 2.80 L (4.2-5.4) M/uL Hgb 8.7 L (12.0-16.0) g/dL Hct 26.6 L (37-47) % MCV 95.0 (80-100) fL MCH 31.1 (25-34) pg MCHC 32.7 (32-36) g/dL RDW Std Deviation 51.2 H (36.4-46.3) fL RDW Coeff of Nazario 14.8 H (11.5-14.5) % Plt Count 310 (130-400) K/uL MPV 10.0 (7.4-10.4) fL Immature Gran % (Auto) 0.3 % Neut % (Auto) 81.3 % Lymph % (Auto) 10.0 % [place] % (Auto) 6.4 % Eos % (Auto) 1.7 % Baso % (Auto) 0.3 % Neut # (Auto) 6.18 (1.4-6.5) K/uL Lymph # (Auto) 0.76 L (1.2-3.4) K/uL Oliver # (Auto) 0.49 (0.11-0.59) K/uL Eos # (Auto) 0.13 (0-0.5) K/uL Baso # (Auto) 0.02 (0-0.2) K/uL Immature Gran # (Auto) 0.02 (0.00-0.02) K/uL PT 12.0 (9.0-12.0) Seconds INR 1.2 H (0.9-1.1) Sodium (136-145) mmol/L Potassium (3.5-5.1) mmol/L Chloride (98-107) mmol/L Carbon Dioxide (21-32) mmol/L Anion Gap (3-11) BUN (7-18) mg/dl Creatinine (0.6-1.2) mg/dl Est Cr Clr Drug Dosing ml/min Est GFR ( Amer) ml/min Est GFR (Non-Af Amer) ml/min BUN/Creatinine Ratio (10-20) Glucose (70-99) mg/dl Calcium (8.5-10.1) mg/dl Phosphorus (2.5-4.9) mg/dl Magnesium (1.8-2.4) mg/dl Total Bilirubin (0.2-1) mg/dl Direct Bilirubin (0-0.2) mg/dl AST (15-37) U/L ALT (12-78) U/L Alkaline Phosphatase (45-117) U/L Troponin I (0-0.045) ng/ml NT-Pro-B Natriuret Pep (0-900) pg/ml Total Protein (6.4-8.2) gm/dl Albumin (3.4-5.0) gm/dl Lipase (73-393) U/L Urine Color Urine Appearance (Clear) Urine pH (4.5-7.5) Ur Specific [place] (1.000-1.030) Urine Protein (Negative) Urine Glucose (UA) (Negative) Urine Ketones (Negative) Urine Blood (Negative) Urine Nitrite (Negative) Urine Bilirubin (Negative) Urine Urobilinogen (Negative) Ur Leukocyte Esterase (Negative) Urine WBC (Auto) (0-5) /hpf Urine RBC (Auto) (0-4) /hpf U Hyaline Cast (Auto) (0-5) /lpf U Epithel Cells (Auto) (0-5) /lpf Urine Bacteria (Auto) (Negative) Digoxin 0.8 (0.8-2.0) ng/ml COVID-19 Eval Order SARS-CoV-2 (PCR) (Negative) 02/21/21 Range/Units 01:30 WBC (4.8-10.8) K/uL RBC (4.2-5.4) M/uL Hgb (12.0-16.0) g/dL Hct (37-47) % MCV (80-100) fL MCH (25-34) pg MCHC (32-36) g/dL RDW Std Deviation (36.4-46.3) fL RDW Coeff of Nazario (11.5-14.5) % Plt Count (130-400) K/uL MPV (7.4-10.4) fL Immature Gran % (Auto) % Neut % (Auto) % Lymph % (Auto) % [place] % (Auto) % Eos % (Auto) % Baso % (Auto) % Neut # (Auto) (1.4-6.5) K/uL Lymph # (Auto) (1.2-3.4) K/uL [place] # (Auto) (0.11-0.59) K/uL Eos # (Auto) (0-0.5) K/uL Baso # (Auto) (0-0.2) K/uL Immature Gran # (Auto) (0.00-0.02) K/uL PT (9.0-12.0) Seconds INR (0.9-1.1) Sodium (136-145) mmol/L Potassium (3.5-5.1) mmol/L Chloride (98-107) mmol/L Carbon Dioxide (21-32) mmol/L Anion Gap (3-11) BUN (7-18) mg/dl Creatinine (0.6-1.2) mg/dl Est Cr Clr Drug Dosing ml/min Est GFR ( Amer) ml/min Est GFR (Non-Af Amer) ml/min BUN/Creatinine Ratio (10-20) Glucose (70-99) mg/dl Calcium (8.5-10.1) mg/dl Phosphorus (2.5-4.9) mg/dl Magnesium (1.8-2.4) mg/dl Total Bilirubin (0.2-1) mg/dl Direct Bilirubin (0-0.2) mg/dl AST (15-37) U/L ALT (12-78) U/L Alkaline Phosphatase (45-117) U/L Troponin I (0-0.045) ng/ml NT-Pro-B Natriuret Pep (0-900) pg/ml Total Protein (6.4-8.2) gm/dl Albumin (3.4-5.0) gm/dl Lipase (73-393) U/L Urine Color [place] Urine Appearance Clear (Clear) Urine pH 5.5 (4.5-7.5) Ur Specific [place] 1.023 (1.000-1.030) Urine Protein Trace H (Negative) Urine Glucose (UA) Negative (Negative) Urine Ketones Negative (Negative) Urine Blood Negative (Negative) Urine Nitrite Positive A (Negative) Urine Bilirubin 1+ H (Negative) Urine Urobilinogen Negative (Negative) Ur Leukocyte Esterase 1+ H (Negative) Urine WBC (Auto) 1-5 (0-5) /hpf Urine RBC (Auto) 5-10 H (0-4) /hpf U Hyaline Cast (Auto) 1-5 (0-5) /lpf U Epithel Cells (Auto) 5-10 H (0-5) /lpf Urine Bacteria (Auto) Negative (Negative) Digoxin (0.8-2.0) ng/ml COVID-19 Eval Order SARS-CoV-2 (PCR) (Negative) Discharge Plan Visit Data Chief Complaint: Weakness Stated Complaint: RESPIRATORY PROBLEMS ED Provider: Willie Foster Discharge Problem: Adult failure to thrive, Congestive heart failure Forms Stand Alone Forms: [facility] Prescriptions Prescriptions: No Action clopidogrel [Plavix] 75 mg Tablet 75 mg PO QAM RF: 0 levothyroxine 100 mcg Tablet 100 mcg PO DAILYBB RF: 0 digoxin 125 mcg (0.125 mg) Tablet 125 mcg PO 2XWK RF: 0 ranolazine [Ranexa] 1,000 mg Tablet Extended Release 12 Hr 1,000 mg PO BID RF: 0 magnesium oxide 400 mg magnesium Tablet 400 mg PO QAM RF: 0 bumetanide 1 mg Tablet 1 mg PO DAILY 30 Days Qty: 30 RF: 3 metoprolol succinate 25 mg tablet extended release 24 hr 12.5 mg PO DAILY RF: 0 quetiapine 100 mg tablet 100 mg PO QPM RF: 0 spironolactone 25 mg tablet 25 mg PO DAILY RF: 0 amitriptyline 25 mg Tablet 50 mg PO HS RF: 0 paroxetine HCl 40 mg Tablet 20 mg PO DAILY RF: 0 atorvastatin 10 mg Tablet 10 mg PO HS RF: 0 Referrals Referrals: Rock Beard [Primary Care Provider] - Discharge Problem: Congestive heart failure Qualifiers: Heart failure type: systolic Heart failure chronicity: acute on chronic Qualified Code(s): I50.23 - Acute on chronic systolic (congestive) heart failure
[2021-02-21 00:55] LABS: Basophils # (auto) 0.02 K/uL (0-0.2); Basophils % (auto) 0.3 %; Eosinophils # (auto) 0.13 K/uL (0-0.5); Eosinophils % (auto) 1.7 %; Hematocrit (blood only) 26.6 % (37-47); Hemoglobin 8.7 g/dL (12.0-16.0); Immature Granulocytes # (auto) 0.02 K/uL (0.00-0.02); Immature Granulocytes % (auto) 0.3 %; Lymphocytes # (auto) 0.76 K/uL (1.2-3.4); Mean Corpuscular Hemoglobin 31.1 pg (25-34); Mean Corpuscular Hgb Conc 32.7 g/dL (32-36); Monocytes # (auto) 0.49 K/uL (0.11-0.59); Monocytes % (auto) 6.4 %; Neutrophils # (auto) 6.18 K/uL (1.4-6.5); Neutrophils % (auto) 81.3 %; Platelet Count 310 K/uL (130-400); RDW Coefficient of Variation 14.8 % (11.5-14.5); RDW Standard Deviation 51.2 fL (36.4-46.3)
[2021-02-21 01:06] LABS: INR 1.2 (0.9-1.1)
[2021-02-21 01:13] LABS: Albumin Level 2.5 gm/dl (3.4-5.0); BUN Creatinine Ratio 24.6 (10-20); Bilirubin Direct 0.5 mg/dl (0-0.2); Calcium 8.3 mg/dl (8.5-10.1); Creatinine Clr Calc Pharmacy 28.7 ml/min; Est GFR (African American) 43.8 ml/min; Est GFR (Non-African American) 37.8 ml/min; Magnesium 1.8 mg/dl (1.8-2.4); Potassium 5.7 mmol/L (3.5-5.1)
[2021-02-21 01:16] LABS: Bilirubin,Total 0.7 mg/dl (0.2-1); Phosphorus 4.1 mg/dl (2.5-4.9); Total Protein 6.1 gm/dl (6.4-8.2); Troponin I 0.03 ng/ml (0-0.045)
[2021-02-21 02:20] LABS: Appearance Urine Clear (Clear); Bacteria Urine Automated Negative (Negative); Blood Urine Negative (Negative); Color Urine Orange; Glucose Urine UA Negative (Negative); Ketones Urine Negative (Negative); Leukocyte Esterase Urine 1+ (Negative); Nitrite Urine Positive (Negative); Protein Urine Trace (Negative); Specific Gravity Urine 1.023 (1.000-1.030); Urobilinogen Urine Negative (Negative); pH Urine 5.5 (4.5-7.5)
[2021-02-21 02:29] LABS: Bilirubin Urine 1+ (Negative)
--- NOTE | 2021-02-21 03:35 | History & Physical Report ---
Date of Service February 21, 2021 Assessment & Plan (1) Acute exacerbation of CHF (congestive heart failure): Plan: Mrs. Barajas is a 75 yo woman with a PMHx of HFrEF along with an underlying dilated, ischemic cardiomyopathy who presented for evaluation of progressive we akness, fatigue and shortness of breath. - BNP > 19,000 - CXR showing bilateral pleural effusions - hold home oral direutic regimen (bumex 1mg, daily). 1mg IV Bumex ordered on admission. Conservative diuresis given relative hypotension - reassess patient later in the morning/early afternoon- consider giving additional IV dose vs. home oral bumex dose based on volume status/clinical picture - if blood pressure cannot tolerate further diuresis, could consider lasix drip vs. therapeutic thoracentesis - palliative consult placed: patient was scheduled to have an outpatient hospice evaluation today - while her CHF is certainly advanced, there are additional interventions that could be tried if patient desires (ie starting Entresto) (2) Cardiomyopathy: Plan: - secondary to ischemia - given recent echo report of akinesis of cardiac apex and mid to distal septum/anteroseptum/anterior wall, consideration should be given to initiation of systemic anticoagulation to prevent formation of a LV thrombus -- however this is advised against if patient is going hospice route - hold home metoprolol given relative hypotension - continue home dose atorvastatin, plavix, digoxin - patient is not on an RANI/ARB (suspect secondary to chronic hypotension) (3) Hyperkalemia: Plan: - K level at 5.7 on admission - hold spironolactone - suspect improvement with IV bumex dose - trend BMP (4) Elevated serum creatinine: Plan: - baseline Cr 0.9-1.0 - Cr 1.34 on admission, BUN elevated to 34 - suspect pre-renal etiology from impaired perfusion in the setting of acute CHF exacerbation (cardiorenal syndrome) - IV bumex as above --> may improve forward flow - trend BMP (5) Elevated troponin: Plan: - trop detectable at 0.030, but not elevated - patient denies chest pain - no acute ST segment changes - trend serial levels (6) Hypoalbuminemia: Plan: - Albumin level 2.5 on admission - likely due to protein calorie malnutrition - boost supplements (7) Pleural effusion due to congestive heart failure: Plan: - present on CXR - likely secondary to exacerbation of chronic HFrEF - IV bumex as above (8) Anemia: Plan: - Hgb 8.7, MCV 97 - normocytic anemia - although she is technically above transfusion threshold of 8 (hx of CAD), consideration could be given to transfusion of 1 unit pRBC, as it will also improve her oncotic pressure and facilitate retention of intravascular volume (9) LBBB (left bundle branch block): Plan: - chronic - if patient desires further intervention, placement of a biventricular ICD is indicated given QRS > 150 ms with left bundle-branch block Dvt ppx: Heparin 5,000 units q12 as CrCL < 30 Diet: Low sodium, heart healthy Dispo: Med/tele Code: Full, I discussed with patient History of Present Illness Primary Care Provider: Rock [facility]ard Mrs. Barajas is a 75 yo woman with a PMHx of HFrEF with an underlying dilated, ischemic cardiomyopathy who presented for evaluation of progressive weakness, fatigue and shortness of breath. Of note, she went to [facility] ED last week for the same, where she was kept for 3 days (ie she was an intended admission, but due to lack of bed space, she never made it to the hospital [facility]). She did note feeling somewhat better after she left [facility]- however again began to decline in the days thereafter. She had an arranged outpatient hospice evaluation scheduled for later today, however due to her progressive weakness overnight, her family members decided to contact EMS. She denies any chest pain, abdominal pain, dysuria or urinary frequency. She denies any blood in stool or melena. She does report a reddish tint to her urine over the past several days. She follows with Palak Mckee in [facility] CHF clinic - her last visit was 01/11/21. She had an echocardiogram in 12/2020 which showed a moderately dilated LV, an EF of 25-30%, akinesis of the apex, mid to distal septum/anteroseptum/ anterior wall are also akinetic. She is on chronic oxygen therapy at home at 2L per NC. Social Hx: She was a heavy smoker in the past; she estimates at least for 50 years. She quit when she had her massive NH several years ago. She drinks one "shot" of wine per night. In the ED, she was afebrile with a normal HR, BP was low at 98/69. She was satting 98% on 2L via NC. Her WBC was normal. Hgb was low at 8.7, MCV 95. INR was 1.2. Potassium was elevated to 5.7. Cr was elevated to 1.38, BUN to 34. AST to 52, ALT was normal. Alk phos was 164. Trop was detectable at 0.030. Lipase not elevated. BNP was 19,954. Albumin was 2.5. UA was + for nitrite, 1+ LE, neg bacteria. Digoxin level was WNL. COVID 19 neg. EKG showing NSR, LBBB (not new), and LAD. Although she has a pacemaker embedded, there does not appear to be any pacer activity on ekg. CXR showing bilateral pleural effusions, R worse than left. Allergies Allergy/AdvReac Type Severity Reaction Status Date / Time red (food color) Allergy Unknown Verified 02/21/21 02:40 Iodinated Contrast Media AdvReac Unknown Unknown Unverified 02/21/21 02:40 Home Medications Medication Instructions Recorded Confirmed Type clopidogrel 75 mg tablet (Plavix) 75 mg PO QAM 12/15/20 02/21/21 History digoxin 125 mcg (0.125 mg) tablet 125 mcg PO 2XWK 12/15/20 02/21/21 History levothyroxine 100 mcg tablet 100 mcg PO DAILYBB 12/15/20 02/21/21 History magnesium oxide 400 mg PO QAM 12/15/20 02/21/21 History ranolazine 1,000 mg 1,000 mg PO BID 12/15/20 02/21/21 History tablet,extended release,12 hr (Ranexa) bumetanide 1 mg tablet 1 mg PO DAILY 30 Days #30 tab 12/19/20 02/21/21 Rx amitriptyline 25 mg tablet 50 mg PO HS 02/21/21 02/21/21 History atorvastatin 10 mg tablet 10 mg PO HS 02/21/21 02/21/21 History metoprolol succinate 25 mg 12.5 mg PO DAILY 02/21/21 02/21/21 History tablet,extended release 24 hr paroxetine HCl 40 mg tablet 20 mg PO DAILY 02/21/21 02/21/21 History quetiapine 100 mg tablet 100 mg PO QPM 02/21/21 02/21/21 History spironolactone 25 mg tablet 25 mg PO DAILY 02/21/21 02/21/21 History Past Med/Surg History Medical History (Updated 02/21/21 @ 04:59 by Willie Foster MD) Acute hyperkalemia Acute hypotension Anemia Cardiomyopathy Chronic systolic heart failure Depression Dyslipidemia Fall Hypothyroidism ICD (implantable cardioverter-defibrillator) in place LBBB (left bundle branch block) Meningioma Mitral regurgitation Surgical History (Updated 12/18/20 @ 08:05 by Luiz Santos MD) H/O gastric bypass Family History (Updated 12/15/20 @ 08:15 by Rajendra Anaya MD) Other Cancer Coronary heart disease Diabetes Hypertension Social History Smoking Status: Current every day smoker Hx Alcohol Use: No Hx Substance Use: No Preferred Language: South African Communication Ability: Effective Die Drawing Checker Required: No Beliefs That Will Affect Care: Oriental Orthodox marital status: Current Living Situation: Family Feels Safe at Home: Yes Assistive Devices: Denture - Upper and Denture - Lower Review of Systems Review of Systems: All systems reviewed & are unremarkable except as noted in HPI & below Physical Exam Constitutional: WD/WN, vitals as above + cachectic and cooperative; no acute distress Eyes: + anicteric sclerae ENMT: external ear and nose normal, oropharynx normal Neck: trachea midline Respiratory: normal respiratory effort; no respiratory distress and no cough Auscultation: + breath sounds absent (right lower lung field ) and + crackles (inspiratory, diffusely throughout mid and upper lung jama); no wheezes Cardiovascular: Rate/Rhythm: regular rate and regular rhythm Heart Sounds: normal S1, normal S2 and + murmur (holosystolic ) Extremities: + pedal edema (1+ b/l) lower extremities are not warm Chest (Breasts): Chest: + pacemaker Gastrointestinal (Abdomen): normal bowel sounds, soft, nontender, no hepatosplenomegaly Musculoskeletal: Head/Neck/Chest: normocephalic and head atraumatic Skin: no rashes, warm and dry Neurologic: moves all extremities Psychiatric: Orientation: alert and oriented x 3 Affect: + flat affect Results & Data Results & Data ([facility]) Vital Signs (Past 12 Hours) Vital Signs Temp Pulse Pulse Resp BP BP Pulse Ox 02/21/21 02:30 68 18 98/69 L 98 02/21/21 02:00 78 18 90/70 L 100 02/21/21 01:30 71 18 93/63 L 98 02/21/21 01:01 79 18 97/64 L 97 02/20/21 23:57 36.5 C 77 20 100/74 100 Supervising Physician Co-Signing Physician Notes Patient seen and examined, chart reviewed, case discussed with Dr. Colmenares and I agree with her assessment plan as documented above. Briefly, patient is a 75-year-old female with history of coronary artery disease, ischemic cardiomyopathy with last EF being 25 to 30% per echo in December 2020 presenting with worsening shortness of breath, weakness and fatigue. . Patient is to establish with outpatient hospice services. Was to meet with them today. On physical exam she is afebrile, borderline hypotensive, no respiratory distress, adequate oxygenation on 2 L nasal cannula Chronically ill in appearance, cachectic and sarcopenicSkinthin, intact, no rash or lesions HEENTmoist mucous membranes, neck supple, no JVD Heart+ S1, S2, regular, systolic ejection murmur across precordium Lungsdiminished breath sounds in bilateral bases, right more than left, diffuse crackles in mid lungs Abdomen+ bowel sounds, soft, nontender, nondistended Extremitiescool to touch, palpable pulses, no edema Labs and images reviewed and significant for hemoglobin of 8.7, hematocrit of 26.6, BUN of 34, creatinine of 1.38, sodium of 135, potassium 5.7 and BNP of greater than 19,000 Chest x-ray with bilateral pleural effusions right more than left as well as increased interstitial pulmonary markings most likely consistent with edema Assessment/plan: 75-year-old female with acute decompensated CHF secondary to ischemic cardiomyopathy, EF of 25 to 30%. Admit to medical telemetry Diuresis: Bumex 1 mg IV x1 nowmonitor response and repeat dosing as needed. Monitor blood pressure and renal function Repeat chemistry to assess K, expect to decrease after IV loop diuretic Continue home medications Consider inpatient hospice consult -was being considered for Entresto by Heart Failure team -Remainder of plan as above Resident Activity Tracking Resident Involvement: Resident Care Provided Care Provided: Adult [facility]
--- NOTE | 2021-02-21 05:17 | Billing Data ---
Date of Service February 21, 2021 Coding Level of Care Code 42576 Initial Inpt Care Lvl 2
[2021-02-21] MEDS ORDERED: ACETAMINOPHEN 325 MG TAB PO PRN (06:22)
[2021-02-21] MEDS ORDERED: BUMETANIDE 1 MG in SYRINGE 0 ML IV ONE ×2 (07:00→17:30)
--- NOTE | 2021-02-21 07:43 | XRay Report ---
XR chest 1V portable HISTORY: 75 years-old Female shortness of breath, weakness acute shortness of breath COMPARISON: 12/15/2020 TECHNIQUE: AP view of the chest FINDINGS: Moderate enlargement of the cardiac silhouette. Coronary arterial stent. Left subclavian pacer/AICD. Pulmonary vascular congestion with reticular interstitial opacities. Small right greater left pleural effusions with with mild right lung base and midlung airspace opacities. Degenerative changes of the shoulders and spine. Midthoracic kyphoplasty. IMPRESSION: 1. Cardiomegaly with pulmonary edema and right greater than left pleural effusions. 2. Right midlung and right lung base opacities may reflect asymmetric pulmonary edema versus superimp osed pneumonia. ACT 112: Negative or not required by law. The above report was generated using voice recognition software. It may contain grammatical, syntax o r spelling errors. Electronically signed by: Riaz Cage M.D. 02/21/2021 7:41 AM
[2021-02-21] MEDS: CLOPIDOGREL BISULFATE 75 MG TAB PO SCH (07:48)
[2021-02-21] MEDS: PARoxetine HCL 20 MG TAB PO SCH (07:49)
[2021-02-21] MEDS: HEPARIN SOD 5,000 UNIT/0.5 ML VIAL SQ SCH ×2 (07:49→20:02)
[2021-02-21] MEDS: MAGNESIUM OXIDE 400 MG TAB PO SCH (07:49)
[2021-02-21] MEDS: LEVOTHYROXINE SODIUM 100 MCG TABLET PO SCH (07:49)
[2021-02-21] MEDS: RANOLAZINE 500 MG ER TAB PO SCH ×2 (07:49→20:02)
[2021-02-21 09:25] LABS: BUN Creatinine Ratio 24.9 (10-20); Calcium 8.3 mg/dl (8.5-10.1); Creatinine Clr Calc Pharmacy 25.7 ml/min; Est GFR (African American) 38.4 ml/min; Est GFR (Non-African American) 33.1 ml/min; Potassium 5.1 mmol/L (3.5-5.1)
[2021-02-21 09:29] LABS: Troponin I 0.025 ng/ml (0-0.045)
--- NOTE | 2021-02-21 13:58 | Electrocardiogram Report ---
Test Reason : Blood Pressure : / mmHG Vent. Rate : 076 BPM Atrial Rate : 076 BPM P-R Int : 184 ms QRS Dur : 140 ms QT Int : 444 ms P-R-T Axes : 035 -67 091 degrees QTc Int : 499 ms Normal sinus rhythm Left axis deviation Non-specific intra-ventricular conduction delay Abnormal ECG When compared with ECG of 15-DEC-2020 03:48, MS interval has decreased Criteria for Anterior infarct are no longer Present Criteria for Anterolateral infarct are no longer Present Criteria for Inferior infarct are no longer Present Confirmed by Tirso Francois ([id number]) on 02/21/2021 1:58:20 PM Referred By: REFERRED SELF Confirmed By:Josse Francois
[2021-02-21] MEDS: NITROGLYCERIN SL 0.4 MG/TAB TAB SL PRN (14:41)
[2021-02-21] MEDS ORDERED: NITROGLYCERIN 2% OINTMENT 30GM TUBE EXT ONE (15:06)
[2021-02-21 15:46] LABS: BUN Creatinine Ratio 27.1 (10-20); Calcium 8.1 mg/dl (8.5-10.1); Creatinine Clr Calc Pharmacy 27.5 ml/min; Est GFR (African American) 41.7 ml/min; Est GFR (Non-African American) 35.9 ml/min; Potassium 5.5 mmol/L (3.5-5.1)
[2021-02-21 15:51] LABS: Troponin I 0.031 ng/ml (0-0.045)
[2021-02-21 15:54] LABS: D Dimer 980 ug/L FEU (0-500)
[2021-02-21] MEDS ORDERED: DIGOXIN 0.125 MG TAB PO SCH (16:00)
[2021-02-21] MEDS ORDERED: Heparin IV Adult Wt-Based Low-Dose *NO* Bolus Protocol ONE (16:39)
[2021-02-21] MEDS ORDERED: SODIUM POLYSTYRENE SULFONATE 15G/60ML SUSP PO ONE (17:30)
[2021-02-21] MEDS: HEPARIN SODIUM/DEXTROSE 25,000 UNITS/500 ML BAG IV SCH (17:40)
[2021-02-21] MEDS ORDERED: ASPIRIN 325 MG ECTAB PO STA (17:44)
[2021-02-21] MEDS: MoRPHine SULFATE 2 MG/ML CARP IV PRN (20:01)
[2021-02-21] MEDS: QUEtiapine FUMARATE 100 MG TABLET PO SCH (20:02)
[2021-02-21] MEDS: ATORVASTATIN 10 MG TAB PO SCH (20:03)
[2021-02-21] MEDS: AMITRIPTYLINE HCL 50 MG TAB PO SCH (20:03)
[2021-02-21 20:52] LABS: Hematocrit (blood only) 27.1 % (37-47)
[2021-02-21 21:10] LABS: Potassium 5.2 mmol/L (3.5-5.1)
[2021-02-21 21:20] LABS: Troponin I 0.02 ng/ml (0-0.045)
--- NOTE | 2021-02-21 21:43 | Hospitalist Progress Note ---
Date of Service February 21, 2021 Assessment & Plan (1) Unstable angina: Plan: Although troponins are negative she is having more frequent chest pain that is similar to past episodes of angina. She is quite unwell, decompensated from a CHF standpoint, and failing to thrive. Will treat for unstable angina with heparin infusion. Asa 325mg po x 1 now. Cont plavix. Nitropaste x 1 now. Morphine 2mg q30min prn. Consider resuming metoprolol if BP will allow - consider 12.5mg BID of tartrate. Hold for now, however. cardiology consult in am. (2) Acute on chronic systolic heart failure: Plan: Received bumex IV this am. Very little diuresis with such, and Creatinine with potassium both yakelin mildly. Will attempt another dose of IV bumex. If poor response and/or renal function continues to worsen we may need to consider inotropic agent to help diurese her. However, with active chest pain, hold off on that right now. Cardiology consult in am. (3) Cardiorenal syndrome: Plan: 2nd to severe CHF. see above. (4) Hyperkalemia: Plan: s/p kayexalate. serial k levels. (5) Pleural effusion due to congestive heart failure: Plan: b/l (6) Anemia: Plan: chronic. recent b12/folate levels wnl. check ferritin in am. repeat H/H this evening acceptable. (7) Adult failure to thrive: (8) LBBB (left bundle branch block): (9) Mitral regurgitation: (10) H/O gastric bypass: (11) Hypothyroidism: Plan: TSH today wnl cont synthroid (12) ICD (implantable cardioverter-defibrillator) in place: (13) D-dimer, elevated: Plan: has left-sided chest pain but it is not pleuritic and the pain is more c/w ischemic pain. she is being heparinized for #1 - if any PE she would be protected. follow. Plan: attempted to call pt's daughter - no answer, left message. critical care time 60 minutes given complexity of care, active chest pain, numerous med additions including drips, Rx of high K, etc. Admission and Anticipated Discharge Date Admission Date: February 21, 2021 Subjective patient arrived to [facility] sometime late this am/early afternoon. I rounded in the early afternoon and patient was sitting upright at the side of the bed. she reported left sided chest pain. it started when she got to the floor. she said it felt like her typical chest pain. she has been getting 2-3 episodes of pain at home daily for 1-2 weeks or longer. she takes nitro which helps the pain. no pleuritic features to it. she endorses orthopnea and dyspnea. she is very weak. She confirmed that she was supposed to visit with hospice at home today but ended up in the ER instead. She came to hospital by EMS. She also confirmed she was recently in the [facility] for 2-3 days for CHF - did feel some better upon d/c from [place] - but never returned to baseline. following my visit I ordered STAT SL nitro 0.4mg which took her pain from 6 or 7 down to near 0. nitropaste then ordered x 1. EKG stat - my reading - NSR, LBBB-- no change from prior EKG STAT trop - neg STAT d-dimer - mild elevation STAT Bmp - Cr elevated, K 5.5 ordered kayexalate for the high K Physical Exam Physical Exam: gen - cachectic, orthopneic, looks very unwell; c/o chest pain neck - sitting upright she has JVD 1/2 [address] up neck mouth - MM dry heart - RRR, s1 s2, 2/6 systolic murmur LLSB lungs - decreased BS bases, crackles bases b/l abd - soft, NT, ND, BS+ ext - <1+ edema b/l, pulses 1+ b/l skin - ashen color/pale psych - flat affect Results & Data Results & Data ([facility]) Vital Signs (Past 12 Hours) Vital Signs Temp Pulse Pulse Pulse Resp BP BP 02/21/21 19:00 36.6 C 73 18 107/71 02/21/21 15:39 80 02/21/21 15:34 80 02/21/21 14:48 36.5 C 80 18 111/75 02/21/21 11:50 36.6 C 80 18 110/71 Pulse Ox 02/21/21 19:00 100 02/21/21 15:39 02/21/21 15:34 02/21/21 14:48 100 02/21/21 11:50 96 Laboratory Results Laboratory Results - last 24 hr 0802/21/21 02/21/21 00:20 00:20 00:45 WBC RBC Hgb Hct MCV MCH MCHC RDW Std Deviation RDW Coeff of Nazario Plt Count MPV Immature Gran % (Auto) Neut % (Auto) Lymph % (Auto) [place] % (Auto) Eos % (Auto) Baso % (Auto) Neut # (Auto) Lymph # (Auto) [place] # (Auto) Eos # (Auto) Baso # (Auto) Immature Gran # (Auto) PT INR D-Dimer Sodium 135 L Potassium 5.7 H Chloride 104 Carbon Dioxide 27 Anion Gap 4.0 BUN 34 H Creatinine 1.38 H Est Cr Clr Drug Dosing 28.7 Est GFR ( Amer) 43.8 Est GFR (Non-Af Amer) 37.8 BUN/Creatinine Ratio 24.6 H Glucose 148 H Calcium 8.3 L Phosphorus 4.1 Magnesium 1.8 Total Bilirubin 0.7 Direct Bilirubin 0.5 H AST 52 H ALT 30 Alkaline Phosphatase 164 H Troponin I 0.030 NT-Pro-B Natriuret Pep 73896 H Total Protein 6.1 L Albumin 2.5 L Lipase 139 TSH Urine Color Urine Appearance Urine pH Ur Specific [place] Urine Protein Urine Glucose (UA) Urine Ketones Urine Blood Urine Nitrite Urine Bilirubin Urine Urobilinogen Ur Leukocyte Esterase Urine WBC (Auto) Urine RBC (Auto) U Hyaline Cast (Auto) U Epithel Cells (Auto) Urine Bacteria (Auto) Digoxin COVID-19 Eval Order Covid19 at [facility] SARS-CoV-2 (PCR) NEGATIVE 02/21/21 02/21/21 02/21/21 00:45 00:45 00:45 WBC 7.60 RBC 2.80 L Hgb 8.7 L Hct 26.6 L MCV 95.0 MCH 31.1 MCHC 32.7 RDW Std Deviation 51.2 H RDW Coeff of Anzario 14.8 H Plt Count 310 MPV 10.0 Immature Gran % (Auto) 0.3 Neut % (Auto) 81.3 Lymph % (Auto) 10.0 [place] % (Auto) 6.4 Eos % (Auto) 1.7 Baso % (Auto) 0.3 Neut # (Auto) 6.18 Lymph # (Auto) 0.76 L [place] # (Auto) 0.49 Eos # (Auto) 0.13 Baso # (Auto) 0.02 Immature Gran # (Auto) 0.02 PT 12.0 INR 1.2 H D-Dimer Sodium Potassium Chloride Carbon Dioxide Anion Gap BUN Creatinine Est Cr Clr Drug Dosing Est GFR ( Amer) Est GFR (Non-Af Amer) BUN/Creatinine Ratio Glucose Calcium Phosphorus Magnesium Total Bilirubin Direct Bilirubin AST ALT Alkaline Phosphatase Troponin I NT-Pro-B Natriuret Pep Total Protein Albumin Lipase TSH Urine Color Urine Appearance Urine pH Ur Specific [place] Urine Protein Urine Glucose (UA) Urine Ketones Urine Blood Urine Nitrite Urine Bilirubin Urine Urobilinogen Ur Leukocyte Esterase Urine WBC (Auto) Urine RBC (Auto) U Hyaline Cast (Auto) U Epithel Cells (Auto) Urine Bacteria (Auto) Digoxin 0.8 COVID-19 Eval Order SARS-CoV-2 (PCR) 02/21/21 02/21/21 02/21/21 01:30 08:46 08:58 WBC RBC Hgb Hct MCV MCH MCHC RDW Std Deviation RDW Coeff of Nazario Plt Count MPV Immature Gran % (Auto) Neut % (Auto) Lymph % (Auto) [place] % (Auto) Eos % (Auto) Baso % (Auto) Neut # (Auto) Lymph # (Auto) [place] # (Auto) Eos # (Auto) Baso # (Auto) Immature Gran # (Auto) PT INR D-Dimer Sodium 135 L Potassium 5.1 Chloride 103 Carbon Dioxide 27 Anion Gap 5.0 BUN 38 H Creatinine 1.54 H Est Cr Clr Drug Dosing 25.7 Est GFR ( Amer) 38.4 Est GFR (Non-Af Amer) 33.1 BUN/Creatinine Ratio 24.9 H Glucose 167 H Calcium 8.3 L Phosphorus Magnesium Total Bilirubin Direct Bilirubin AST ALT Alkaline Phosphatase Troponin I 0.025 Cancelled NT-Pro-B Natriuret Pep Total Protein Albumin Lipase TSH Urine Color [place] Urine Appearance Clear Urine pH 5.5 Ur Specific [place] 1.023 Urine Protein Trace H Urine Glucose (UA) Negative Urine Ketones Negative Urine Blood Negative Urine Nitrite Positive A Urine Bilirubin 1+ H Urine Urobilinogen Negative Ur Leukocyte Esterase 1+ H Urine WBC (Auto) 1-5 Urine RBC (Auto) 5-10 H U Hyaline Cast (Auto) 1-5 U Epithel Cells (Auto) 5-10 H Urine Bacteria (Auto) Negative Digoxin COVID-19 Eval Order SARS-CoV-2 (PCR) 02/21/21 02/21/21 02/21/21 11:22 15:19 15:19 WBC RBC Hgb Hct MCV MCH MCHC RDW Std Deviation RDW Coeff of Nazario Plt Count MPV Immature Gran % (Auto) Neut % (Auto) Lymph % (Auto) [place] % (Auto) Eos % (Auto) Baso % (Auto) Neut # (Auto) Lymph # (Auto) [place] # (Auto) Eos # (Auto) Baso # (Auto) Immature Gran # (Auto) PT INR D-Dimer 980 H* Sodium 134 L Potassium 5.5 H Chloride 102 Carbon Dioxide 27 Anion Gap 5.0 BUN 39 H Creatinine 1.44 H Est Cr Clr Drug Dosing 27.5 Est GFR ( Amer) 41.7 Est GFR (Non-Af Amer) 35.9 BUN/Creatinine Ratio 27.1 H Glucose 120 H Calcium 8.1 L Phosphorus Magnesium Total Bilirubin Direct Bilirubin AST ALT Alkaline Phosphatase Troponin I 0.031 NT-Pro-B Natriuret Pep Total Protein Albumin Lipase TSH 3.880 Urine Color Urine Appearance Urine pH Ur Specific [place] Urine Protein Urine Glucose (UA) Urine Ketones Urine Blood Urine Nitrite Urine Bilirubin Urine Urobilinogen Ur Leukocyte Esterase Urine WBC (Auto) Urine RBC (Auto) U Hyaline Cast (Auto) U Epithel Cells (Auto) Urine Bacteria (Auto) Digoxin COVID-19 Eval Order SARS-CoV-2 (PCR) 02/21/21 02/21/21 02/21/21 20:36 20:36 20:36 WBC RBC Hgb 9.0 L Hct 27.1 L MCV MCH MCHC RDW Std Deviation RDW Coeff of Nazario Plt Count MPV Immature Gran % (Auto) Neut % (Auto) Lymph % (Auto) [place] % (Auto) Eos % (Auto) Baso % (Auto) Neut # (Auto) Lymph # (Auto) [place] # (Auto) Eos # (Auto) Baso # (Auto) Immature Gran # (Auto) PT INR D-Dimer Sodium Potassium Cancelled 5.2 H Chloride Carbon Dioxide Anion Gap BUN Creatinine Est Cr Clr Drug Dosing Est GFR ( Amer) Est GFR (Non-Af Amer) BUN/Creatinine Ratio Glucose Calcium Phosphorus Magnesium Total Bilirubin Direct Bilirubin AST ALT Alkaline Phosphatase Troponin I 0.020 NT-Pro-B Natriuret Pep Total Protein Albumin Lipase TSH Urine Color Urine Appearance Urine pH Ur Specific [place] Urine Protein Urine Glucose (UA) Urine Ketones Urine Blood Urine Nitrite Urine Bilirubin Urine Urobilinogen Ur Leukocyte Esterase Urine WBC (Auto) Urine RBC (Auto) U Hyaline Cast (Auto) U Epithel Cells (Auto) Urine Bacteria (Auto) Digoxin COVID-19 Eval Order SARS-CoV-2 (PCR) PG Care Time/CCT Total # of Minutes Spent Total Time Spent with Patient: Total time spent is greater than 50% in coordination of care (as documented) at patient's floor/unit and/or counseling patient: Critical Care Time: Yes Total Critical Care Time: 60 Coding Level of Care Code None Diagnoses Unstable angina I20.0 Acute on chronic systolic heart failure I50.23 Cardiorenal syndrome I13.10 Hyperkalemia E87.5 Pleural effusion due to congestive heart failure I50.9 Anemia D64.9 Adult failure to thrive R62.7 LBBB (left bundle branch block) I44.7 Mitral regurgitation I34.0 H/O gastric bypass Z98.84 Hypothyroidism E03.9 ICD (implantable cardioverter-defibrillator) in place Z95.810 D-dimer, elevated R79.89 Additional Codes Critical Care Time - Critical Care Time: Yes ([id number]) Time Spent (min) 60
[2021-02-22 00:28] LABS: Partial Thromboplastin Ratio 1.4
[2021-02-22] MEDS ORDERED: HEPARIN SOD (PORCINE) 1000 UNIT/ML IV ONE (01:00)
[2021-02-22] MEDS: LEVOTHYROXINE SODIUM 100 MCG TABLET PO SCH (06:24)
[2021-02-22 06:51] LABS: Hematocrit (blood only) 26.3 % (37-47); Hemoglobin 8.7 g/dL (12.0-16.0); Mean Corpuscular Hemoglobin 31.3 pg (25-34); Mean Corpuscular Hgb Conc 33.1 g/dL (32-36); Mean Corpuscular Volume 94.6 fL (80-100); Mean Platelet Volume 10.2 fL (7.4-10.4); Platelet Count 305 K/uL (130-400); RDW Coefficient of Variation 14.9 % (11.5-14.5); Red Blood Count 2.78 M/uL (4.2-5.4); White Blood Count 7.66 K/uL (4.8-10.8)
[2021-02-22 07:17] LABS: BUN Creatinine Ratio 25.2 (10-20); Calcium 8.2 mg/dl (8.5-10.1); Creatinine Clr Calc Pharmacy 23.9 ml/min; Est GFR (African American) 35.1 ml/min; Est GFR (Non-African American) 30.3 ml/min; Potassium 4.6 mmol/L (3.5-5.1)
[2021-02-22 07:22] LABS: Ferritin 147.7 ng/ml (8-388); Troponin I 0.03 ng/ml (0-0.045)
[2021-02-22 07:43] LABS: Partial Thromboplastin Ratio 2.7
[2021-02-22 08:04] LABS: Partial Thromboplastin Time 70.5 Seconds (21.0-31.0)
--- NOTE | 2021-02-22 08:25 | Electrocardiogram Report ---
Test Reason : Blood Pressure : / mmHG Vent. Rate : 076 BPM Atrial Rate : 076 BPM P-R Int : 176 ms QRS Dur : 130 ms QT Int : 424 ms P-R-T Axes : 002 -67 092 degrees QTc Int : 477 ms Normal sinus rhythm Left axis deviation Non-specific intra-ventricular conduction delay Abnormal ECG When compared with ECG of 21-FEB-2021 00:15, No significant change was found Confirmed by Tirso Francois ([id number]) on 02/22/2021 8:25:05 AM Referred By: REFERRED SELF Confirmed By:Josse Francois
[2021-02-22] MEDS: CLOPIDOGREL BISULFATE 75 MG TAB PO SCH (09:01)
[2021-02-22] MEDS: PARoxetine HCL 20 MG TAB PO SCH (09:01)
[2021-02-22] MEDS: RANOLAZINE 500 MG ER TAB PO SCH ×2 (09:01→20:47)
[2021-02-22] MEDS: MAGNESIUM OXIDE 400 MG TAB PO SCH (09:03)
[2021-02-22] MEDS: HEPARIN SOD 5,000 UNIT/0.5 ML VIAL SQ SCH (09:03)
--- NOTE | 2021-02-22 11:15 | XRay Report ---
XR chest 1V portable HISTORY: fever, ?right-sided pneumonia, CHF COMPARISON: Chest 02/21/2021. FINDINGS: There is a left-sided pacemaker/defibrillator. No pneumothorax. Mild to moderate asymmetric pulmonary edema, bilateral pleural effusions, and bibasilar densities persist. The heart remains enl arged. Thoracic spine vertebroplasty is again noted. IMPRESSION: No change in the pulmonary edema and bibasilar densities/effusions. ACT 112: Negative or not required by law. Electronically signed by: Nazario Dooley M.D. 02/22/2021 11:13 AM
[2021-02-22] MEDS: cefTRIAXone SODIUM 1,000 MG in DEXTROSE 5% 50 ML IV SCH (11:28)
--- NOTE | 2021-02-22 12:16 | Palliative Care Consultation ---
Date of Consultation February 22, 2021 Assessment & Plan (1) Adult failure to thrive: expected with advanced serious illness. (2) Fatigue: with ischemic cardiomyopathy and deconditioning. She requires assistance with ADLs and lives with her daughter who is caregiver for Melida and her . (3) Palliative care encounter: I talked with Melida about the plan for enrolling in hospice prior to admission. She acknowledges this and tells me that "they can do a lot of things for you". We reviewed support provided with hospice benefit. We also reviewed hospice philosophy and focus on comfort directed care. I asked her how she felt about remaining at home with focus on comfort rather than returning to the hospital. She felt that this would be ok, even if she were to at home. Her preference would be to remain at home but she worries about the burden on her daughter Krystal. She asked about her prognosis and we reviewed her current illness status. By definition, to qualify for hospice, we would not be surprised if she were to within the next six months though heart failure has a much less consistent trajectory than many other illnesses. She understands this and feels that it is up to God when she reaches her dying time. I addressed her code status which is not consistent with her wish to at home with hospice. She understands this but would prefer that this be discussed with Krystal, prior to making any changes. I tried to call Krystal with no answer. Will continue to reach out to her. Phone call to Krystal x 4 with no answer. (4) Cardiorenal syndrome: (5) Acute on chronic systolic heart failure: (6) Cardiomyopathy: History of Present Illness Reason for Consultation: goals of care Requesting Physician: Dr. Colmenares Attending Physician: Keyon Nieto History of Present Illness 75 yo lady with ischemic cardiomyopathy and EF of 25-30%. She presented with progressive weakness and dyspnea. She is oxygen dependent with a baseline of 2 lpm. She tells me that she lives at home with her and daughter, Krystal, who is a nurse at [employer]. Krystal has been her primary caregiver. She has had functional decline at home and had been considering hospice care. She was actually scheduled to meet with hospice prior to admission but presented to ER for uncontrolled symptoms as above. At this time her code status is full code. We have been consulted to assist with goals of care. Allergies Allergy/AdvReac Type Severity Reaction Status Date / Time red (food color) Allergy Unknown Verified 02/21/21 02:40 Iodinated Contrast Media AdvReac Unknown Unknown Unverified 02/21/21 02:40 Home Medications Medication Instructions Recorded Confirmed Type clopidogrel 75 mg tablet (Plavix) 75 mg PO QAM 12/15/20 02/21/21 History digoxin 125 mcg (0.125 mg) tablet 125 mcg PO 2XWK 12/15/20 02/21/21 History levothyroxine 100 mcg tablet 100 mcg PO DAILYBB 12/15/20 02/21/21 History magnesium oxide 400 mg PO QAM 12/15/20 02/21/21 History ranolazine 1,000 mg 1,000 mg PO BID 12/15/20 02/21/21 History tablet,extended release,12 hr (Ranexa) bumetanide 1 mg tablet 1 mg PO DAILY 30 Days #30 tab 12/19/20 02/21/21 Rx amitriptyline 25 mg tablet 50 mg PO HS 02/21/21 02/21/21 History atorvastatin 10 mg tablet 10 mg PO HS 02/21/21 02/21/21 History metoprolol succinate 25 mg 12.5 mg PO DAILY 02/21/21 02/21/21 History tablet,extended release 24 hr paroxetine HCl 40 mg tablet 20 mg PO DAILY 02/21/21 02/21/21 History quetiapine 100 mg tablet 100 mg PO QPM 02/21/21 02/21/21 History spironolactone 25 mg tablet 25 mg PO DAILY 02/21/21 02/21/21 History Patient History Medical History Acute hyperkalemia Acute hypotension Anemia Cardiomyopathy Chronic systolic heart failure Depression Dyslipidemia Fall Hypothyroidism ICD (implantable cardioverter-defibrillator) in place LBBB (left bundle branch block) Meningioma Mitral regurgitation Surgical History H/O gastric bypass Family History Other Cancer Coronary heart disease Diabetes Hypertension Social History Smoking Status: Former smoker Second Hand Exposure: No; Hx Alcohol Use: No Hx Substance Use: No Preferred Language: Yi Communication Ability: Effective Training And Quality Manager Required: No Beliefs That Will Affect Care: None marital status: Current Living Situation: Family Feels Safe at Home: Yes Assistive Devices: Cane and Walker Review of Systems Review of Systems: [place] Symptom Assessment Scale Pain 0/3 Dyspnea 1/3 Fatigue 2/3 Anxiety 1/3 Nausea 0/3 Drowsiness 0/3 Palliative Performance Score 40% Physical Exam Constitutional: + thin and + frail appearing; no acute distress ENMT: Mouth: oral mucous membranes not dry Respiratory: normal respiratory effort; no labored breathing Cardiovascular: Rate/Rhythm: regular rate and regular rhythm Musculoskeletal: Extremities: + muscle atrophy Neurologic: awake; not confused Psychiatric: Orientation: oriented x 3 Results & Data ([facility]) Vital Signs (Past 12 Hours) Vital Signs Temp Pulse Pulse Resp BP Pulse Ox 02/22/21 11:37 97.7 F 76 16 111/77 100 02/22/21 07:56 100.2 F H 77 20 120/83 99 02/22/21 07:00 75 02/22/21 02:48 97.9 F 76 16 109/75 97 02/22/21 01:39 67 PG Care Time/CCT Total # of Minutes Spent Total Time Spent with Patient: Total time spent is greater than 50% in coordination of care (as documented) at patient's floor/unit and/or counseling patient: Coding Level of Care Code 47623 Initial Inpt Care Lvl 2 Diagnoses Adult failure to thrive R62.7 Fatigue R53.83 Cardiorenal syndrome I13.10 Acute on chronic systolic heart failure I50.23 Cardiomyopathy I42.9 Palliative care encounter Z51.5
[2021-02-22] MEDS: DOXYCYCLINE HYCLATE 100 MG in DEXTROSE 5% 100 ML IV SCH ×2 (12:27→23:15)
[2021-02-22 14:32] LABS: Partial Thromboplastin Ratio 1.7
[2021-02-22] MEDS ORDERED: BUMETANIDE 0.5 MG in SYRINGE 0 ML IV ONE (16:15)
[2021-02-22] MEDS: HEPARIN SODIUM/DEXTROSE 25,000 UNITS/500 ML BAG IV SCH (16:45)
[2021-02-22] MEDS: QUEtiapine FUMARATE 100 MG TABLET PO SCH (20:47)
[2021-02-22] MEDS: ATORVASTATIN 10 MG TAB PO SCH (20:47)
[2021-02-22] MEDS: AMITRIPTYLINE HCL 50 MG TAB PO SCH (20:47)
[2021-02-22 20:51] LABS: Partial Thromboplastin Ratio 1.6; Partial Thromboplastin Time 42.9 Seconds (21.0-31.0)
--- NOTE | 2021-02-22 22:47 | Hospitalist Progress Note ---
Date of Service February 22, 2021 Assessment & Plan (1) Unstable angina: Plan: Improved today. Remains on heparin infusion, about at the 24 hour laurent. Fortunately, despite numerous episodes of chest pain, her troponins are neg excluding acute MA. Cont plavix. Cont heparin infusion another 24 hours minimum. Morphine 2mg q30min prn. Consider resuming metoprolol if BP will allow - consider 12.5mg BID of tartrate. Hold for now, however. CHF/cardiology consult appreciated. Since we will be transitioning to hospice will defer on additional aspirin, inotropic agents, aggressive measures. See CHF below re: more details. (2) Pneumonia: Plan: at minimum has right sided pneumonia. cannot exclude some pneumonia on left. had low-grade fever of 37.9 today. started rocephin 1gm daily. started doxy 100mg BID IV. COVID testing was negative. HOWEVER, SHE IS INCOMPLETELY VACCINATED. SHE WAS IN THE ER FOR NEARLY 3 DAYS AT [facility] WITHIN THE LAST 1-2 WEEKS. NEVER GOT TO A HOSPITAL BED BECAUSE OF NO BEDS BEING AVAILABLE. She easily could have been exposed to COVID and other pathogens while sitting in ER for those 3 days. Thus, if any worsening respiratory status, fever, etc - LOW THRESHOLD FOR REPEAT COVID TEST. (3) Acute on chronic systolic heart failure: Plan: with associated cardiorenal syndrome. some diuresis since admission with improved orthopnea/resp status. try bumex 0.5mg IV x 1 today as she radiographically and clinically still is volume overloaded. (4) Acute kidney injury: Plan: 2nd to #1, #2, #3, #5 supportive care baseline Cr about 1 today Cr is 1.6 (5) Cardiorenal syndrome: Plan: 2nd to severe CHF. see above. Cr 1.6 today. BMP in am. (6) Hyperkalemia: Plan: s/p kayexalate. 2nd to #4 and MARILYN. resolved. (7) Pleural effusion due to congestive heart failure: Plan: b/l (8) Anemia: Plan: chronic. recent b12/folate levels wnl. Fe deficiency on iron studies today. however, since we are transitioning to hospice, no Rx. would not transfuse either even despite #1. (9) Adult failure to thrive: Plan: severe (10) LBBB (left bundle branch block): (11) Mitral regurgitation: (12) H/O gastric bypass: (13) Hypothyroidism: Plan: TSH wnl cont synthroid (14) ICD (implantable cardioverter-defibrillator) in place: Plan: would advise shutting off ICD portion of device at discharge since we are transitioning to hospice (15) D-dimer, elevated: Plan: left-sided chest pain at admission and after admission but it is not pleuritic and the pain is more c/w ischemic pain. she is being heparinized for #1 - if any PE she would be protected. follow. (16) Chronic respiratory failure with hypoxia: Plan: on home O2 continuously Plan: daughter extensively updated at bedside today DNR status confirmed with patient in the presence of daughter, myself, and special education case manager plan is for home with hospice on FRIDAY Admission and Anticipated Discharge Date Admission Date: February 21, 2021 Subjective patient feeling better today chest pain resolved mild cough appetite poor-fair breathing is more comfortable today when I came for my visit she asked about hospice and what that might mean for her we discussed this at length she apparently had told Ms Xiomy Mckee from CHF clinic that she wanted to return home with hospice about 1/2 way through the visit the pt's daughter arrived daughter is a nurse at [employer] in [facility] daughter is vaccinated fully against COVID pt only had 1 of 2 COVID shots daughter lives with her parents while daughter was present Moira Finley from case management also came to bedside we discussed code status pt is DNR we discussed hospice - goal would be home on Friday w/ hospice Review of Systems Constitutional: + fatigue and + anorexia; no chills Respiratory: + cough and + dyspnea on exertion Cardiovascular: as per Subjective / HPI and + orthopnea (but improved ); no chest pain Gastrointestinal: no abdominal pain, no nausea and no vomiting Physical Exam Physical Exam: gen - cachectic, chronically ill-appearing but looks more comfortable today neck - no JVD today mouth - MM dry heart - RRR, s1 s2, 2/6 systolic murmur LLSB lungs - decreased BS bases, crackles bases b/l, R>L abd - soft, NT, ND, BS+ ext - <1+ edema b/l, pulses 1+ b/l skin - ashen color/pale psych - awake, alert, asks appropriate questions Results & Data Results & Data ([facility]) Vital Signs (Past 12 Hours) Vital Signs Temp Pulse Pulse Resp BP Pulse Ox 02/22/21 19:41 36.8 C 72 18 111/70 100 02/22/21 16:00 74 02/22/21 11:37 36.5 C 76 16 111/77 100 Laboratory Results Laboratory Results - last 24 hr 02/21/21 02/22/21 02/22/21 23:27 06:34 06:34 WBC 7.66 RBC 2.78 L Hgb 8.7 L Hct 26.3 L MCV 94.6 MCH 31.3 MCHC 33.1 RDW Std Deviation 51.0 H RDW Coeff of Nazario 14.9 H Plt Count 305 MPV 10.2 APTT 37.0 H PTT Ratio 1.4 Sodium 134 L Potassium 4.6 Chloride 102 Carbon Dioxide 27 Anion Gap 5.0 BUN 42 H Creatinine 1.66 H Est Cr Clr Drug Dosing 23.9 Est GFR ( Amer) 35.1 Est GFR (Non-Af Amer) 30.3 BUN/Creatinine Ratio 25.2 H Glucose 113 H Calcium 8.2 L Iron 31 L Transferrin 220 Transferrin % Sat 10 L Ferritin 147.7 Troponin I 0.030 02/22/21 02/22/21 02/22/21 06:34 13:52 20:16 WBC RBC Hgb Hct MCV MCH MCHC RDW Std Deviation RDW Coeff of Nazario Plt Count MPV APTT 70.5 H* 45.0 H 42.9 H PTT Ratio 2.7 1.7 1.6 Sodium Potassium Chloride Carbon Dioxide Anion Gap BUN Creatinine Est Cr Clr Drug Dosing Est GFR ( Amer) Est GFR (Non-Af Amer) BUN/Creatinine Ratio Glucose Calcium Iron Transferrin Transferrin % Sat Ferritin Troponin I PG Care Time/CCT Total # of Minutes Spent Total Time Spent with Patient: Total time spent is greater than 50% in coordination of care (as documented) at patient's floor/unit and/or counseling patient: Coding Level of Care Code 88203 Subseq Hosp Care Lvl 3 Diagnoses Unstable angina I20.0 Acute on chronic systolic heart failure I50.23 Cardiorenal syndrome I13.10 Hyperkalemia E87.5 Pleural effusion due to congestive heart failure I50.9 Anemia D64.9 Adult failure to thrive R62.7 LBBB (left bundle branch block) I44.7 Mitral regurgitation I34.0 H/O gastric bypass Z98.84 Hypothyroidism E03.9 ICD (implantable cardioverter-defibrillator) in place Z95.810 D-dimer, elevated R79.89 Pneumonia J18.9 Chronic respiratory failure with hypoxia J96.11 Acute kidney injury N17.9
[2021-02-22] MEDS: NITROGLYCERIN SL 0.4 MG/TAB TAB SL PRN (23:14)
[2021-02-22] MEDS: MoRPHine SULFATE 2 MG/ML CARP IV PRN (23:22)
--- NOTE | 2021-02-22 23:31 | Communication Note ---
Date of Service: February 22, 2021 Was paged regarding onset of left-sided chest pain that occurred when attempting to wean the patient from 4L NC to room air. She was placed on 2L NC and EKG was taken. Chest pain persisted and she was given SL Nitro x1 without resolution. On assessment of the patient she reports left-sided chest pain that radiates laterally across left-sided ribs. Her chest pain worsens on inspiration. She is hemodynamically stable and satting well on 2L NC. Patient also reports mild tenderness to palpation of left chest. Lungs are clear to auscultation bilateral ly - no wheezes or crackles appreciated. No LE edema. Personally reviewed EKG - NSR without ST/T changes. Suspect that patient's chest pain is musculoskeletal in origin (intercostal muscle strain) rather than cardiac. However given h/o unstable angina and decompensated heart failure, will order a stat Troponin. Of note the patient is continued on Heparin gtt.
[2021-02-23] MEDS: MoRPHine SULFATE 2 MG/ML CARP IV PRN (01:03)
[2021-02-23 03:32] LABS: BUN Creatinine Ratio 28.7 (10-20); Calcium 7.8 mg/dl (8.5-10.1); Creatinine Clr Calc Pharmacy 27.5 ml/min; Est GFR (African American) 41.7 ml/min; Est GFR (Non-African American) 35.9 ml/min; Potassium 3.7 mmol/L (3.5-5.1)
[2021-02-23 03:33] LABS: Partial Thromboplastin Ratio 2.1
[2021-02-23 03:34] LABS: Partial Thromboplastin Time 54.9 Seconds (21.0-31.0)
[2021-02-23] MEDS: HEPARIN SODIUM/DEXTROSE 25,000 UNITS/500 ML BAG IV SCH (06:14)
[2021-02-23] MEDS: LEVOTHYROXINE SODIUM 100 MCG TABLET PO SCH (06:17)
[2021-02-23] MEDS: CLOPIDOGREL BISULFATE 75 MG TAB PO SCH (08:52)
[2021-02-23] MEDS: MAGNESIUM OXIDE 400 MG TAB PO SCH (08:52)
[2021-02-23] MEDS: RANOLAZINE 500 MG ER TAB PO SCH ×2 (08:53→21:52)
[2021-02-23] MEDS: PARoxetine HCL 20 MG TAB PO SCH (08:53)
[2021-02-23] MEDS: cefTRIAXone SODIUM 1,000 MG in DEXTROSE 5% 50 ML IV SCH (10:53)
[2021-02-23] MEDS: DOXYCYCLINE HYCLATE 100 MG in DEXTROSE 5% 100 ML IV SCH ×2 (10:54→23:00)
--- NOTE | 2021-02-23 17:36 | Electrocardiogram Report ---
Test Reason : Blood Pressure : / mmHG Vent. Rate : 073 BPM Atrial Rate : 073 BPM P-R Int : 174 ms QRS Dur : 168 ms QT Int : 436 ms P-R-T Axes : 031 -66 097 degrees QTc Int : 480 ms Normal sinus rhythm Left axis deviation Non-specific intra-ventricular conduction delay Abnormal ECG When compared with ECG of 21-FEB-2021 16:32, QRS duration has increased Confirmed by Tirso Francois ([id number]) on 02/23/2021 5:36:22 PM Referred By: REFERRED SELF Confirmed By:Josse Francois
--- NOTE | 2021-02-23 20:17 | Hospitalist Progress Note ---
Date of Service February 23, 2021 Assessment & Plan (1) Unstable angina: Plan: Patient with an episode of chest pain likely musculoskeletal previous night, resolved by time of daytime assessment Remains on heparin, will discontinue tomorrow as of care to transition to hospice home services Continue Plavix at this time Borderline hypotensive, continue to hold metoprolol Defer additional aggressive measures pending transfer to home hospice services (2) Pneumonia: Plan: Right-sided pneumonia, possibly additional left-sided Continue Rocephin/doxycycline. Conversion to complete 7-day course with cefdinir/cyclin on discharge Afebrile today Incompletely vaccinated to Covid, Covid testing on admission negative. No signs of clinical worsening at this time to prompt retesting (3) Acute on chronic systolic heart failure: Plan: -with associated cardiorenal syndrome. -some diuresis since admission with improved orthopnea/resp status. -Improving, follow FARHAT's defer additional Bumex today and follow clinically (4) Acute kidney injury: Plan: Creatinine approximately 1.6 Secondary to pneumonia and acute illness as noted above with cardiorenal syndrome BMP daily (5) Cardiorenal syndrome: Plan: Due to severe CHF, BMP daily (6) Hyperkalemia: Plan: Resolved (7) Pleural effusion due to congestive heart failure: Plan: Bilateral, follow diuresis and clinical status. Reassess in a.m. Bumex as needed (8) Anemia: Plan: chronic. recent b12/folate levels wnl. Fe deficiency on iron studies today. however, since we are transitioning to hospice, no Rx. would not transfuse at this time (9) Adult failure to thrive: Plan: severe, hospice oriented goals of care (10) LBBB (left bundle branch block): (11) Mitral regurgitation: (12) H/O gastric bypass: (13) Hypothyroidism: Plan: TSH wnl cont synthroid (14) ICD (implantable cardioverter-defibrillator) in place: Plan: would advise shutting off ICD portion of device at discharge since we are transitioning to hospice (15) D-dimer, elevated: Plan: left-sided chest pain at admission and after admission Improved today time of assessment Continue heparin until discharge (16) Chronic respiratory failure with hypoxia: Plan: on home O2 continuously Plan: Anticipate discharge to hospice tomorrow, daughter at bedside and plan discussed with family. Admission and Anticipated Discharge Date Admission Date: February 21, 2021 Mick Montez is seen at the bedside with her daughter. She reports she feels well, relatively unchanged from prior. She feels she is ready to go home on hospice, and denies pain at time of visit. Reportedly with an episode of chest pain overnight, patient reports no chest pain, palpitations, shortness of breath, difficulty breathing, or lightheadedness at time of assessment. No additional questions concerns at time of HPI. Review of Systems Review of Systems: Constitutional: Denies fever, chills, endorses global fatigue Eyes: Denies vision change ENT: Denies ear pain, sore throat, sinus pain Cardiovascular: Denies Chest pain, chest pressure, palpitations, extremity swelling Respiratory: Endorses intermittent cough and some shortness of breath laying flat, no shortness of breath at time of assessment. Gastrointestinal: Denies abdominal pain, nausea, vomiting, constipation, diarrhea Genitourinary: Denies dysuria, urinary frequency Musculoskeletal: Denies MSK pain at time of assessment. Neurological: Denies headache, numbness, tingling Physical Exam Physical Exam: General: Thin, chronically ill-appearing, no acute distress. Awake, alert, answers questions appropriately HEENT: Atraumatic, normocephalic. Pulm: C bibasilar crackles, moderate to poor air movement overall. Symmetrical chest rise. No increase work of breathing. No respiratory distress. Cardiac: RRR, -mrg. Radial pulses intact and symmetrical. Abdominal: Nontender, nondistended, soft. BS present. Results & Data Results & Data ([facility]) Vital Signs (Past 12 Hours) Vital Signs Temp Pulse Pulse Resp BP BP Pulse Ox 02/23/21 16:21 36.8 C 77 18 109/73 95 02/23/21 15:00 74 02/23/21 11:59 36.5 C 70 20 111/73 100 02/23/21 08:40 36.6 C 75 20 118/81 98 PG Care Time/CCT Total # of Minutes Spent Total Time Spent with Patient: Total time spent is greater than 50% in coordination of care (as documented) at patient's floor/unit and/or counseling patient: Coding Level of Care Code 38534 Subseq Hosp Care Lvl 3 Diagnoses Unstable angina I20.0 Pneumonia J18.9 Acute on chronic systolic heart failure I50.23 Acute kidney injury N17.9 Cardiorenal syndrome I13.10 Hyperkalemia E87.5 Pleural effusion due to congestive heart failure I50.9 Anemia D64.9 Adult failure to thrive R62.7 LBBB (left bundle branch block) I44.7 Mitral regurgitation I34.0 H/O gastric bypass Z98.84 Hypothyroidism E03.9 ICD (implantable cardioverter-defibrillator) in place Z95.810 D-dimer, elevated R79.89 Chronic respiratory failure with hypoxia J96.11
[2021-02-23] MEDS: ONDANSETRON INJ 2 MG/ML 2 ML VIAL IV PRN (21:03)
[2021-02-23] MEDS: ATORVASTATIN 10 MG TAB PO SCH (21:52)
[2021-02-23] MEDS: QUEtiapine FUMARATE 100 MG TABLET PO SCH (21:52)
[2021-02-23] MEDS: AMITRIPTYLINE HCL 50 MG TAB PO SCH (21:52)
[2021-02-24] MEDS: LEVOTHYROXINE SODIUM 100 MCG TABLET PO SCH (06:00)
[2021-02-24 06:30] LABS: Hematocrit (blood only) 25.5 % (37-47); Hemoglobin 8.5 g/dL (12.0-16.0); Mean Corpuscular Hemoglobin 31.1 pg (25-34); Mean Corpuscular Hgb Conc 33.3 g/dL (32-36); Mean Corpuscular Volume 93.4 fL (80-100); Mean Platelet Volume 9.9 fL (7.4-10.4); Platelet Count 318 K/uL (130-400); RDW Coefficient of Variation 14.7 % (11.5-14.5); RDW Standard Deviation 49.9 fL (36.4-46.3); Red Blood Count 2.73 M/uL (4.2-5.4); White Blood Count 6.75 K/uL (4.8-10.8)
[2021-02-24 06:54] LABS: Partial Thromboplastin Ratio 1.9
[2021-02-24 07:06] LABS: BUN Creatinine Ratio 28.6 (10-20); Calcium 7.9 mg/dl (8.5-10.1); Creatinine Clr Calc Pharmacy 32.5 ml/min; Est GFR (African American) 50.9 ml/min; Est GFR (Non-African American) 43.9 ml/min; Potassium 3.8 mmol/L (3.5-5.1)
[2021-02-24 07:10] LABS: Partial Thromboplastin Time 50.8 Seconds (21.0-31.0)
--- NOTE | 2021-02-24 07:28 | Discharge Summary ---
Date of Service February 24, 2021 Admission HPI Per Admitting Provider Mrs. Barajas is a 75 yo woman with a PMHx of HFrEF with an underlying dilated, ischemic cardiomyopathy who presented for evaluation of progressive weakness, fatigue and shortness of breath. Of note, she went to [place]'s ED last week for the same, where she was kept for 3 days (ie she was an intended admission, but due to lack of bed space, she never made it to the hospital [facility]). She did note feeling somewhat better after she left [place]- however again began to decline in the days thereafter. She had an arranged outpatient hospice evaluation scheduled for later today, however due to her progressive weakness overnight, her family members decided to contact EMS. She denies any chest pain, abdominal pain, dysuria or urinary frequency. She denies any blood in stool or melena. She does report a reddish tint to her urine over the past several days. She follows with Palak Mckee in [facility] - her last visit was 01/11/21. She had an echocardiogram in 12/2020 which showed a moderately dilated LV, an EF of 25-30%, akinesis of the apex, mid to distal septum/anteroseptum/ anterior wall are also akinetic. She is on chronic oxygen therapy at home at 2L per NC. Social Hx: She was a heavy smoker in the past; she estimates at least for 50 years. She quit when she had her massive AK several years ago. She drinks one "shot" of wine per night. In the ED, she was afebrile with a normal HR, BP was low at 98/69. She was satting 98% on 2L via NC. Her WBC was normal. Hgb was low at 8.7, MCV 95. INR was 1.2. Potassium was elevated to 5.7. Cr was elevated to 1.38, BUN to 34. AST to 52, ALT was normal. Alk phos was 164. Trop was detectable at 0.030. Lipase not elevated. BNP was 19,954. Albumin was 2.5. UA was + for nitrite, 1+ LE, neg bacteria. Digoxin level was WNL. COVID 19 neg. EKG showing NSR, LBBB (not new), and LAD. Although she has a pacemaker embedded, there does not appear to be any pacer activity on ekg. CXR showing bilateral pleural effusions, R worse than left. Admission Exam Per Admitting Provider Constitutional: WD/WN, vitals as above + cachectic and cooperative; no acute distress Eyes: + anicteric sclerae ENMT: external ear and nose normal, oropharynx normal Neck: trachea midline Respiratory: normal respiratory effort; no respiratory distress and no cough Auscultation: + breath sounds absent (right lower lung field ) and + crackles (inspiratory, diffusely throughout mid and upper lung jama); no wheezes Cardiovascular: Rate/Rhythm: regular rate and regular rhythm Heart Sounds: normal S1, normal S2 and + murmur (holosystolic ) Extremities: + pedal edema (1+ b/l) lower extremities are not warm Chest (Breasts): Chest: + pacemaker Gastrointestinal (Abdomen): normal bowel sounds, soft, nontender, no hepatosplenomegaly Musculoskeletal: Head/Neck/Chest: normocephalic and head atraumatic Skin: no rashes, warm and dry Neurologic: moves all extremities Psychiatric: Orientation: alert and oriented x 3 Affect: + flat affect Principal Diagnosis Weakness Failure to Thrive Discharge Exam General: Thin, chronically ill-appearing, no acute distress. Awake, alert, answers questions appropriately HEENT: Atraumatic, normocephalic. Pulm: C bibasilar crackles, moderate to poor air movement overall. Symmetrical chest rise. No increase work of breathing. No respiratory distress. Cardiac: RRR, -mrg. Radial pulses intact and symmetrical. Abdominal: Nontender, nondistended, soft. BS present. Discharge Data Allergies Allergy/AdvReac Type Severity Reaction Status Date / Time red (food color) Allergy Unknown Verified 02/21/21 02:40 Iodinated Contrast Media AdvReac Unknown Unknown Unverified 02/21/21 02:40 Consultations 02/21/21 02:20 ED Decision to Admit Stat 02/21/21 03:29 Consult Palliative Care Routine Hospital Course (1) Unstable angina: Patient was admitted with unstable angina and concern for ischemic chest pain, was heparinized on admission. Continued for 48 hours and stopped on day of discharge. Her chest pain improved, and she did not experience any recurrent cardiac chest pain. Troponin x3 was negative. Her blood pressure medications were held for hypotension. Case was discussed with the patient, family, and palliative care. Patient reported that her goals of care were to remain home with a focus on comfort rather than returning to the hospital, and that it would be "okay to at home ". She worried about the burden on her daughter Krystal, and services available from hospice were reviewed. Patient was made DNR following discussion with palliative provider and decision was made to engage hospice services with focus on comfort care. Antihypertensives were held for hypotension, recommend holding consistent with comfort care goals upon returning home. There was incorrectly noted on discharge paperwork at time of discharge, but was discussed and confirmed with Melida and her daughter by phone will hold both the metoprolol and atorvastatin and follow-up with hospice for additional recommendations on medication elimination (2) Pneumonia: Chest x-ray on admission showed right midlung and right lung base opacities may reflect asymmetric pulmonary edema versus superimposed pneumonia. Patient was treated with Rocephin/doxycycline on admission, and was discharged to complete a 7-day course of antibiotic treatment with doxycycline on discharge. She remained afebrile following initiation of antibiotics and did not have any signs of clinical worsening. She was additionally treated for acute on chronic systolic heart failure as mentioned. She did clinically well and was discharged in good spirits to hospice services. (3) Acute on chronic systolic heart failure: -Was noted to have acute on chronic systolic heart failure with associated cardiorenal syndrome. Her case was discussed with palliative care as noted in unstable angina section and ultimately chose to pursue comfort care goals with hospice on discharge. Patient did respond well to diuresis during admission with resolution of orthopnea/dyspnea, recommend that she may continue Bumex daily even with hospice as this is likely to help her breathing. (4) Acute kidney injury: Creatinine increased to approximately 1.6 in the setting of unstable angina, acute on chronic systolic heart failure, and cardiorenal syndrome. Her creatinine down trended to 1.22-day of discharge, additional checks were deferred as patient was discharged to hospice with comfort oriented goals. She was not anuric during admission (5) Cardiorenal syndrome: Due to severe CHF, treated with diuretics as noted in systolic heart failure section. Discharged to hospice services. (6) Hyperkalemia: Resolved during admission with repletion (7) Pleural effusion due to congestive heart failure: Bilateral effusions consistent with congestive heart failure were appreciated on admission, patient was treated with Bumex with good clinical response during admission (8) Anemia: She was noted to have chronic anemia with normal recent B12/folate levels. Suspect that patient has anemia of chronic disease versus iron deficiency with some iron deficiency appreciated on iron studies, his fusion was not indicated and additional supplementation/treatment was deferred following patient decision to focus on comfort oriented goals and hospice. (9) Adult failure to thrive: Patient with severe medical frailty and chronic illness, and failure to thrive. Recommend continuing pleasure feeding and nutritional supplementation as tolerated with a focus on comfort consistent with care goals. (10) LBBB (left bundle branch block): (11) Mitral regurgitation: (12) H/O gastric bypass: (13) Hypothyroidism: Thyroid was normal on admission, Synthroid was continued through admission. (14) ICD (implantable cardioverter-defibrillator) in place: Melida has a history of a ICD placement. Discussed turning off defibrillator function of her ICD with Melida and her daughter, they will follow up with cardiology for this. (15) D-dimer, elevated: Patient with elevated D-dimer left-sided chest pain on admission, improved clinically and was heparinized for 48 hours, discontinued on discharge to hospice. (16) Chronic respiratory failure with hypoxia: on home O2 continuously Total Time Total Time Spent Total Time Spent (In Minutes): Time spent was approximately 45 minutes including discussion with the patient, preparation of discharge, and documentation Discharge Plan Discharge Items Patient Disposition: Hospice - Home Reason For Visit: WEAKNESS Discharge Diagnosis: Weakness Chronic systolic heart failure Cardiorenal syndrome Chronic respiratory failure with hypoxia Pneumonia Activity: Per Instructions section Non-emergency contact: Primary Care Provider Call non-emergency contact if: you have any medication questions, your symptoms worsen, your pain is not controlled, your pain is worsening and your pain is unusual for you Follow-up/Referrals: Rock Beard [Primary Care Provider] - Diet: Other - See Diet Comment Addtl Attending Provider Instructions: You were seen in the hospital for concerns of chest pain and pneumonia. You were treated with IV antibiotics for right-sided pneumonia. Your Covid test was negative. Hospice was discussed to due to chronic severe underlying medical conditions, including acute on chronic heart failure, cardiorenal syndrome, anemia, and frailty. After discussing your medical condition and goals of care with palliative care hospice was consulted, and your being discharged home with their services to help focus on comfort and quality of life. They may choose to discontinue several of your existing medications to help focus on comfort and avoid side effects. Your primary care physician and hospice provider will discuss this further with you. You have been discharged on an antibiotic doxycycline for your pneumonia. Please take doxycycline 100 mg twice daily for 5 days. This antibiotics may cause loose bowels and your skin to be sensitive to sunlight. If you develop any worsening symptoms or side effects, please discuss these with your primary care or hospice provider. You are being discharged home with hospice services to focus on comfort oriented goals. If you develop any new or worsening symptoms including fever, chills, sweats, chest pain, chest pressure, difficulty breathing, uncontrolled nausea/vomiting, rash, wheezing, passing out or nearly passing out, bleeding, black/bloody bowel movements, or other new or concerning symptoms please call your primary care physician at or hospice provider. Pending Studies at Discharge: No Stand-Alone Forms: My [facility] Medications and DC Order Prescriptions: New doxycycline monohydrate 100 mg capsule 100 mg PO BID 5 Days Qty: 10 RF: 0 Continued clopidogrel [Plavix] 75 mg Tablet 75 mg PO QAM RF: 0 levothyroxine 100 mcg Tablet 100 mcg PO DAILYBB RF: 0 digoxin 125 mcg (0.125 mg) Tablet 125 mcg PO 2XWK RF: 0 ranolazine [Ranexa] 1,000 mg Tablet Extended Release 12 Hr 1,000 mg PO BID RF: 0 magnesium oxide 400 mg magnesium Tablet 400 mg PO QAM RF: 0 bumetanide 1 mg Tablet 1 mg PO DAILY 30 Days Qty: 30 RF: 3 quetiapine 100 mg tablet 100 mg PO QPM RF: 0 amitriptyline 25 mg Tablet 50 mg PO HS RF: 0 paroxetine HCl 40 mg Tablet 20 mg PO DAILY RF: 0 atorvastatin 10 mg Tablet 10 mg PO HS RF: 0 Discontinued metoprolol succinate 25 mg tablet extended release 24 hr 12.5 mg PO DAILY RF: 0 spironolactone 25 mg tablet 25 mg PO DAILY RF: 0 Discharge Orders: Discharge Order (Routine); Ordered 02/24/21 Ordered By: Stanislaw Nuñez Admission Data Admit Date/Time: 02/21/21 03:25 Attending Provider: Stanislaw Nuñez Admit Provider: Peggy Colmenares Primary Care Provider: Rock Beard Other Providers: Alexandra Molina ; Najma Chávez Other Interventions: Discharge Summary Assessment (RN) Last Done: 02/24/21 14:21 Coding Level of Care Code D/C DAY MANAGEMENT >30 MINS Diagnoses Unstable angina I20.0 Pneumonia J18.9 Acute on chronic systolic heart failure I50.23 Acute kidney injury N17.9 Cardiorenal syndrome I13.10 Hyperkalemia E87.5 Pleural effusion due to congestive heart failure I50.9 Anemia D64.9 Adult failure to thrive R62.7 LBBB (left bundle branch block) I44.7 Mitral regurgitation I34.0 H/O gastric bypass Z98.84 Hypothyroidism E03.9 ICD (implantable cardioverter-defibrillator) in place Z95.810 D-dimer, elevated R79.89 Chronic respiratory failure with hypoxia J96.11
[2021-02-24] MEDS: RANOLAZINE 500 MG ER TAB PO SCH (08:31)
[2021-02-24] MEDS: CLOPIDOGREL BISULFATE 75 MG TAB PO SCH (08:31)
[2021-02-24] MEDS: PARoxetine HCL 20 MG TAB PO SCH (08:31)
[2021-02-24] MEDS: MAGNESIUM OXIDE 400 MG TAB PO SCH (08:31)
[2021-02-24] MEDS: ONDANSETRON INJ 2 MG/ML 2 ML VIAL IV PRN ×2 (08:33→14:11)
[2021-02-24] MEDS ORDERED: CEFDINIR 300 MG CAP PO SCH (09:00)
[2021-02-24] MEDS ORDERED: DOXYCYCLINE HYCLATE 100 MG CAP PO SCH (10:00)
== END 2021-02-24 16:00 | disposition hospice, home (50) | DRG 682 ==
LOC: ED 23:48 → SUATTDRO 02-21 03:25 → EDINP 02-21 03:25 → 2W 02-21 12:47

== ENCOUNTER 2021-03-12 20:41 | Inpatient (IN) ==
--- NOTE | 2021-03-12 22:23 | Emergency Department Note ---
History of Present Illness General Chief complaint: Respiratory Problems Stated complaint: SOB, TIGHTNESS IN CHEST Time Seen by Provider: 03/12/21 22:04 Source: patient and family (Daughter who is at the bedside) Mode of arrival: ambulatory Limitations: no limitations History of Present Illness Maximum Pain Intensity: 7 This patient is a 75-year-old female who comes in after having shortness of breath and dizziness since yesterday. She is on hospice due to kidney failure and CHF. Her daughter says she is been retaining more fluid in her legs right greater than left. She is followed by Dr. Chilel in [place] but was recently in this hospital under Dr. Sneed's care. She had a nonproductive cough. No fever. She had episode of chest pain about a week ago x1 and took a nitroglycerin. No chest pain since then. No abdominal pain. She has chronic decreased appetite but nothing new or different. No fall or trauma. Her urine has had some blood tinge in it. She does take Bumex for CHF. Home Medications Medication Instructions Recorded Confirmed Type clopidogrel 75 mg tablet (Plavix) 75 mg PO QAM 12/15/20 02/21/21 History digoxin 125 mcg (0.125 mg) tablet 125 mcg PO 2XWK 12/15/20 02/21/21 History levothyroxine 100 mcg tablet 100 mcg PO DAILYBB 12/15/20 03/12/21 History magnesium oxide 400 mg PO QAM 12/15/20 02/21/21 History ranolazine 1,000 mg 1,000 mg PO BID 12/15/20 02/21/21 History tablet,extended release,12 hr (Ranexa) bumetanide 1 mg tablet 1 mg PO DAILY 30 Days #30 tab 12/19/20 02/21/21 Rx atorvastatin 10 mg tablet 10 mg PO HS 02/21/21 03/13/21 History paroxetine HCl 40 mg tablet 20 mg PO DAILY 02/21/21 02/21/21 History amitriptyline 50 mg tablet 50 mg PO HS 03/12/21 03/12/21 History famotidine 20 mg tablet 20 mg PO BID 03/12/21 03/12/21 History ondansetron 4 mg disintegrating 4 mg TRANSLINGUAL Q6 PRN 03/12/21 03/12/21 History tablet quetiapine 50 mg tablet 50 mg PO QPM 03/12/21 03/12/21 History Allergies Allergy/AdvReac Type Severity Reaction Status Date / Time red (food color) Allergy Unknown Verified 03/12/21 22:16 Iodinated Contrast Media AdvReac Unknown Unknown Unverified 03/12/21 22:16 Past Med/Surg History Medical History Acute hyperkalemia Acute hypotension Anemia Cardiomyopathy Chronic systolic heart failure Depression Dyslipidemia Fall Hypothyroidism ICD (implantable cardioverter-defibrillator) in place LBBB (left bundle branch block) Meningioma Mitral regurgitation Surgical History H/O gastric bypass Family History Other Cancer Coronary heart disease Diabetes Hypertension Social History Smoking Status: Former smoker Second Hand Exposure: No; Hx Alcohol Use: No Hx Substance Use: No Preferred Language: Jordanian Communication Ability: Effective 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 Machine 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: No Beliefs That Will Affect Care: None marital status: Current Living Situation: Family Feels Safe at Home: Yes Assistive Devices: Glasses Review of Systems A total of 10 systems reviewed and were otherwise negative Physical Exam Vital Signs Vital Signs - 24 hr 03/12/21 20:54 03/12/21 22:03 03/12/21 22:32 Temperature 36.5 C Temperature Source Temporal Artery Scan Pulse Rate 82 81 Pulse Rate [Radial] Respiratory Rate 24 16 Respiratory Effort / Characteristics Respiratory Depth Blood Pressure 101/82 Blood Pressure [Left Arm] Blood Pressure Mean 88 Blood Pressure Mean [Left Arm] Pulse Oximetry 97 96 96 Oxygen Delivery Method Nasal Cannula Nasal Cannula Oxygen Flow Rate 2 0 2 Sepsis New/Unexplained Change in Mental Status N/A Sepsis Action Taken by Nursing No Action Required 03/12/21 22:33 03/13/21 00:09 03/13/21 01:36 Temperature Temperature Source Pulse Rate Pulse Rate [Radial] 81 81 85 Respiratory Rate 16 16 16 Respiratory Effort / Characteristics Non-Labored Spontaneous Non-Labored Spontaneous Respiratory Depth Normal Normal Blood Pressure Blood Pressure [Left Arm] 102/81 105/70 96/73 L Blood Pressure Mean Blood Pressure Mean [Left Arm] 88 81 80 Pulse Oximetry 96 100 100 Oxygen Delivery Method Room Air Nasal Cannula Nasal Cannula Oxygen Flow Rate 2 2 Sepsis New/Unexplained Change in Mental Status Sepsis Action Taken by Nursing General: Well developed well nourished cachectic older female in no acute distress, breathing comfortably on room air. Normal speech HEENT: Normal cephalic atraumatic. Pupils are equal round and reactive to light. Extraocular movements are intact. Oropharynx is pink with moist mucous membranes. No swelling of the mouth lips or tongue. Neck: Supple with a midline trachea. No meningeal signs or stiffness, no JVD or bruits. No Stridor. Chest: Clear to auscultation bilaterally. No wheezes or rhonchi. No increased work of breathing. Pacemaker/defibrillator in left chest Heart: Regular rate and rhythm without murmurs or gallops. Abdomen: Soft nontender, nondistended without rebound guarding or rigidity. Extremities: No cyanosis clubbing. Trace to 1+ bilateral edema. No calf tenderness Spine/Back. Non tender to palpation. No CVA tenderness Skin: Good turgor without rashes. Neurologic exam: Cranial nerves two through 12 are intact. Motor and sensation are intact and symmetrical throughout. Course Administered Medications Sodium Chloride (Nss 1000ml) 1,000 mls @ 60 mls/hr IV .[id number] DONALDO Stop: 03/13/21 17:09 Last Admin: 03/13/21 00:52 Dose: 60 mls/hr Documented by: [id number] Discontinued Medications Calcium Gluconate () 1,000 mg in 60 mls @ 240 mls/hr IV NOW STA Stop: 03/13/21 00:17 Last Infusion: 03/13/21 00:40 Dose: 0 mls/hr Documented by: [id number] Admin: 03/13/21 00:22 Dose: 240 mls/hr Documented by: [id number] Medical Decision Making Differential Diagnosis CHF, electrolyte or metabolic abnormality, COPD, renal failure, acute coronary syndrome, arrhythmia Medical Records Attestation: I reviewed the patient's medical records. Home Medications Current Medication List: was personally reviewed by me Laboratory Data Attestation: I reviewed the patient's lab results. Result diagrams: 03/12/21 22:01 03/12/21 22:01 Lab Results 03/12/21 03/12/21 03/12/21 Range/Units 22:01 22:01 22:01 WBC 7.71 (4.8-10.8) K/uL RBC 2.81 L (4.2-5.4) M/uL Hgb 8.6 L (12.0-16.0) g/dL Hct 26.3 L (37-47) % MCV 93.6 (80-100) fL MCH 30.6 (25-34) pg MCHC 32.7 (32-36) g/dL RDW Std Deviation 52.3 H (36.4-46.3) fL RDW Coeff of Nazario 15.4 H (11.5-14.5) % Plt Count 311 (130-400) K/uL MPV 10.6 H (7.4-10.4) fL Immature Gran % (Auto) 0.3 % Neut % (Auto) 57.3 % Lymph % (Auto) 27.6 % Barry % (Auto) 11.5 % Eos % (Auto) 2.5 % Baso % (Auto) 0.8 % Neut # (Auto) 4.42 (1.4-6.5) K/uL Lymph # (Auto) 2.13 (1.2-3.4) K/uL Barry # (Auto) 0.89 H (0.11-0.59) K/uL Eos # (Auto) 0.19 (0-0.5) K/uL Baso # (Auto) 0.06 (0-0.2) K/uL Immature Gran # (Auto) 0.02 (0.00-0.02) K/uL APTT Cancelled PTT Ratio Cancelled Sodium 133 L (136-145) mmol/L Potassium 5.8 H (3.5-5.1) mmol/L Chloride 101 (98-107) mmol/L Carbon Dioxide 24 (21-32) mmol/L Anion Gap 7.0 (3-11) BUN 34 H (7-18) mg/dl Creatinine 2.06 H (0.6-1.2) mg/dl Est Cr Clr Drug Dosing Not Reportable Est GFR ( Amer) 27.0 ml/min Est GFR (Non-Af Amer) 23.3 ml/min BUN/Creatinine Ratio 16.4 (10-20) Glucose 108 H (70-99) mg/dl Calcium 8.7 (8.5-10.1) mg/dl Total Bilirubin 0.8 (0.2-1) mg/dl AST 160 H (15-37) U/L ALT 109 H (12-78) U/L Alkaline Phosphatase 187 H (45-117) U/L Troponin I 0.030 (0-0.045) ng/ml NT-Pro-B Natriuret Pep 73085 H (0-900) pg/ml Total Protein 6.9 (6.4-8.2) gm/dl Albumin 3.0 L (3.4-5.0) gm/dl Globulin 3.9 (2.5-4.0) gm/dl Albumin/Globulin Ratio 0.8 L (0.9-2) Lipase 185 (73-393) U/L COVID-19 Eval Order SARS-CoV-2 (PCR) (Negative) 03/12/21 03/12/21 Range/Units 22:44 22:44 WBC (4.8-10.8) K/uL RBC (4.2-5.4) M/uL Hgb (12.0-16.0) g/dL Hct (37-47) % MCV (80-100) fL MCH (25-34) pg MCHC (32-36) g/dL RDW Std Deviation (36.4-46.3) fL RDW Coeff of Nazario (11.5-14.5) % Plt Count (130-400) K/uL MPV (7.4-10.4) fL Immature Gran % (Auto) % Neut % (Auto) % Lymph % (Auto) % Barry % (Auto) % Eos % (Auto) % Baso % (Auto) % Neut # (Auto) (1.4-6.5) K/uL Lymph # (Auto) (1.2-3.4) K/uL Barry # (Auto) (0.11-0.59) K/uL Eos # (Auto) (0-0.5) K/uL Baso # (Auto) (0-0.2) K/uL Immature Gran # (Auto) (0.00-0.02) K/uL APTT PTT Ratio Sodium (136-145) mmol/L Potassium (3.5-5.1) mmol/L Chloride (98-107) mmol/L Carbon Dioxide (21-32) mmol/L Anion Gap (3-11) BUN (7-18) mg/dl Creatinine (0.6-1.2) mg/dl Est Cr Clr Drug Dosing Est GFR ( Amer) ml/min Est GFR (Non-Af Amer) ml/min BUN/Creatinine Ratio (10-20) Glucose (70-99) mg/dl Calcium (8.5-10.1) mg/dl Total Bilirubin (0.2-1) mg/dl AST (15-37) U/L ALT (12-78) U/L Alkaline Phosphatase (45-117) U/L Troponin I (0-0.045) ng/ml NT-Pro-B Natriuret Pep (0-900) pg/ml Total Protein (6.4-8.2) gm/dl Albumin (3.4-5.0) gm/dl Globulin (2.5-4.0) gm/dl Albumin/Globulin Ratio (0.9-2) Lipase (73-393) U/L COVID-19 Eval Order Covid19 at [facility] SARS-CoV-2 (PCR) NEGATIVE (Negative) Imaging Data Attestation: I personally reviewed and interpreted this imaging study as follows: My Impression: Chest x-raymild congestive changes with effusion in the right base. ECG Data Attestation: I personally reviewed and interpreted this ECG as follows: Indication: + SOB/dyspnea Rate (beats per minute): 83 Rhythm: + normal sinus ECG Intervals/blocks: + Right Bundle branch block and + Normal SC ECG Hunt: + Left axis deviation ECG ST segments: + Nonspecific ST abnormalities ECG Findings: no PACs or no PVCs Comparison ECG Date: from (02/22/21) Change: no significant change MDM Narrative This patient comes in as described above. She is a hospice patient but was feeling short of breath so they brought her here. She is wanting to have treatment and be admitted if need be. She had a Covid vaccine x1 no Covid exposure. IV asked established EKG and blood work was obtained. She was reassessed frequently. Her EKG shows no changes compared to old. Her renal function is actually worse than old and her potassium is at 5.8. I think clinically she is actually intravascularly dry and may be over diuresed. She does have some peripheral edema but she has a low albumin history. Her lungs are clear primarily on exam and her chest x-ray does not look like she is significantly fluid overloaded. She may actually need some gentle hydration with volume. With her potassium being elevated I did order calcium gluconate 1 g IV. I did consult Dr. Gunn to see her as she will likely need to be admitted/observed. Continuous cardiac monitoring: Orders placed in EMR for continuous cardiac monitoring. Upon my evaluation the patient was noted to be in normal sinus rhythm with a rate of 80 Impression & Plan Weakness, Cardiomyopathy, ICD (implantable cardioverter-defibrillator) in place, LBBB (left bundle branch block), Cardiorenal syndrome, Acute hyperkalemia Discharge Plan Visit Data Chief Complaint: Respiratory Problems Stated Complaint: SOB, TIGHTNESS IN CHEST ED Provider: Adria Santillan Discharge Problem: Weakness, Cardiomyopathy, ICD (implantable cardioverter-defibrillator) in place, LBBB (left bundle branch block), Cardiorenal syndrome, Acute hyperkalemia Patient Disposition: Admitted As Inpatient Discharge Instructions Interventions: ED Discharge Assessment Last Done: 03/13/21 01:34 Forms Stand Alone Forms: [facility] Prescriptions Prescriptions: No Action clopidogrel [Plavix] 75 mg Tablet 75 mg PO QAM RF: 0 levothyroxine 100 mcg Tablet 100 mcg PO DAILYBB RF: 0 digoxin 125 mcg (0.125 mg) Tablet 125 mcg PO 2XWK RF: 0 ranolazine [Ranexa] 1,000 mg Tablet Extended Release 12 Hr 1,000 mg PO BID RF: 0 magnesium oxide 400 mg magnesium Tablet 400 mg PO QAM RF: 0 bumetanide 1 mg Tablet 1 mg PO DAILY 30 Days Qty: 30 RF: 3 paroxetine HCl 40 mg Tablet 20 mg PO DAILY RF: 0 atorvastatin 10 mg Tablet 10 mg PO HS RF: 0 amitriptyline 50 mg tablet 50 mg PO HS RF: 0 famotidine 20 mg tablet 20 mg PO BID RF: 0 quetiapine 50 mg tablet 50 mg PO QPM RF: 0 ondansetron 4 mg tablet,disintegrating 4 mg translingual Q6 PRN (Reason: Nausea And Vomiting) RF: 0 Referrals Referrals: Rock Beard [Primary Care Provider] - Discharge Problem: Cardiomyopathy Qualifiers: Cardiomyopathy type: unspecified Qualified Code(s): I42.9 - Cardiomyopathy, unspecified Cardiorenal syndrome Qualifiers: Heart failure presence: with heart failure Hypertensive chronic kidney disease stage: stage 1-4 or unspecified chronic kidney disease Qualified Code(s): I13.0 - Hypertensive heart and chronic kidney disease with heart failure and stage 1 through stage 4 chronic kidney disease, or unspecified chronic kidney disease
[2021-03-12 22:27] LABS: Basophils # (auto) 0.06 K/uL (0-0.2); Basophils % (auto) 0.8 %; Eosinophils # (auto) 0.19 K/uL (0-0.5); Eosinophils % (auto) 2.5 %; Hematocrit (blood only) 26.3 % (37-47); Hemoglobin 8.6 g/dL (12.0-16.0); Immature Granulocytes # (auto) 0.02 K/uL (0.00-0.02); Immature Granulocytes % (auto) 0.3 %; Lymphocytes # (auto) 2.13 K/uL (1.2-3.4); Lymphocytes % (auto) 27.6 %; Mean Corpuscular Hemoglobin 30.6 pg (25-34); Mean Corpuscular Hgb Conc 32.7 g/dL (32-36); Mean Corpuscular Volume 93.6 fL (80-100); Mean Platelet Volume 10.6 fL (7.4-10.4); Monocytes # (auto) 0.89 K/uL (0.11-0.59); Monocytes % (auto) 11.5 %; Neutrophils # (auto) 4.42 K/uL (1.4-6.5); Neutrophils % (auto) 57.3 %; Platelet Count 311 K/uL (130-400); RDW Coefficient of Variation 15.4 % (11.5-14.5); RDW Standard Deviation 52.3 fL (36.4-46.3); Red Blood Count 2.81 M/uL (4.2-5.4); White Blood Count 7.71 K/uL (4.8-10.8)
[2021-03-12 22:44] LABS: Alanine Aminotransferase 109 U/L (12-78); Aspartate Aminotransferase 160 U/L (15-37); BUN Creatinine Ratio 16.4 (10-20); Blood Urea Nitrogen 34 mg/dl (7-18); Calcium 8.7 mg/dl (8.5-10.1); Carbon Dioxide 24 mmol/L (21-32); Chloride 101 mmol/L (98-107); Est GFR (Non-African American) 23.3 ml/min; Glucose 108 mg/dl (70-99); Lipase 185 U/L (73-393); Potassium 5.8 mmol/L (3.5-5.1); Sodium 133 mmol/L (136-145)
[2021-03-12 22:49] LABS: Albumin Globulin Ratio 0.8 (0.9-2); Alkaline Phosphatase 187 U/L (45-117); Bilirubin,Total 0.8 mg/dl (0.2-1); Globulin 3.9 gm/dl (2.5-4.0); NT Pro B Type Natriuretic Pept 23891 pg/ml (0-900); Total Protein 6.9 gm/dl (6.4-8.2)
[2021-03-13] MEDS ORDERED: CALCIUM GLUCONATE 1,000 MG/60 ML BAG IV STA (00:03)
[2021-03-13] MEDS ORDERED: SODIUM CHLORIDE 0.9% 1000ML 1,000 ML IV SCH (00:30)
--- NOTE | 2021-03-13 00:51 | History & Physical Report ---
Date of Service March 13, 2021 Assessment & Plan (1) Weakness: Plan: Multifactorial: MARILYN on CKD, dehydration, abnormal liver function, cardiorenal syndrome and others (2) Acute kidney injury superimposed on chronic kidney disease: Plan: Creatinine 2.06 upon admission, with range 1.22-1.66 NSS at 60 mils per hour x1 L, and then repeat laboratories in a.m. Hold bumetanide for now (3) Acute hyperkalemia: Plan: Potassium 5.8 upon admission, likely secondary to MARILYN. Calcium gluconate 1 g IV x1. Rehydrate with IV fluids noted above, and recheck labs in a.m. Admit to monitored bed. No significant ectopy at this time (4) Chronic respiratory failure with hypoxia: Plan: Stable (5) Cardiorenal syndrome: Plan: Cardiorenal syndrome, question of progressing to cardio hepatorenal syndrome Repeat laboratories in a.m., otherwise treatment as above Continue clopidogrel, and Ranexa. Check a digoxin level before continuing digoxin (6) Adult failure to thrive: Plan: Patient had been admitted to home hospice, but had been referred to the ED by hospice (7) Cardiomyopathy: Plan: See above (8) Dyslipidemia: Plan: Atorvastatin 10 mg daily (9) Depression: Plan: Continue amitriptyline, paroxetine and Seroquel (10) Hypothyroidism: Plan: Continue levothyroxine History of Present Illness Chief Complaint: The patient presents to the emergency department with 1 day of generalized fatigue, shortness of breath, dizziness and decreased appetite Primary Care Provider: Rock Beard The patient is a 75-year-old female with a past medical history of chronic respiratory failure with hypoxia, pneumonia, cardiorenal syndrome, acute on chronic systolic heart failure, adult failure to thrive, anemia, pleural effusion, hypoalbuminemia, left bundle branch block, mitral vegetation, cardiomyopathy, depression, dyslipidemia, hypothyroidism, and ICD in place. She presents the emergency department with generalized fatigue, shortness of breath, dizziness, decreased appetite and decreased liquid intake over the past 24 hours. Allergies Allergy/AdvReac Type Severity Reaction Status Date / Time red (food color) Allergy Unknown Verified 03/12/21 22:16 Iodinated Contrast Media AdvReac Unknown Unknown Unverified 03/12/21 22:16 Home Medications Medication Instructions Recorded Confirmed Type clopidogrel 75 mg tablet (Plavix) 75 mg PO QAM 12/15/20 02/21/21 History digoxin 125 mcg (0.125 mg) tablet 125 mcg PO 2XWK 12/15/20 02/21/21 History levothyroxine 100 mcg tablet 100 mcg PO DAILYBB 12/15/20 03/12/21 History magnesium oxide 400 mg PO QAM 12/15/20 02/21/21 History ranolazine 1,000 mg 1,000 mg PO BID 12/15/20 02/21/21 History tablet,extended release,12 hr (Ranexa) bumetanide 1 mg tablet 1 mg PO DAILY 30 Days #30 tab 12/19/20 02/21/21 Rx atorvastatin 10 mg tablet 10 mg PO HS 02/21/21 03/13/21 History paroxetine HCl 40 mg tablet 20 mg PO DAILY 02/21/21 02/21/21 History amitriptyline 50 mg tablet 50 mg PO HS 03/12/21 03/12/21 History famotidine 20 mg tablet 20 mg PO BID 03/12/21 03/12/21 History ondansetron 4 mg disintegrating 4 mg TRANSLINGUAL Q6 PRN 03/12/21 03/12/21 History tablet quetiapine 50 mg tablet 50 mg PO QPM 03/12/21 03/12/21 History Past Med/Surg History Medical History Acute hyperkalemia Acute hypotension Anemia Cardiomyopathy Chronic systolic heart failure Depression Dyslipidemia Fall Hypothyroidism ICD (implantable cardioverter-defibrillator) in place LBBB (left bundle branch block) Meningioma Mitral regurgitation Surgical History H/O gastric bypass Family History Other Cancer Coronary heart disease Diabetes Hypertension Social History Smoking Status: Former smoker Second Hand Exposure: No; Hx Alcohol Use: No Hx Substance Use: No Preferred Language: Turkish Communication Ability: Effective Adjunct Professor Required: No Beliefs That Will Affect Care: None marital status: Current Living Situation: Family Feels Safe at Home: Yes Assistive Devices: Glasses Review of Systems Review of Systems: The patient denies chest pain, palpitations, cough, lower extremity swelling, sore throat, fevers, chills, sweats, nausea, vomiting, diarrhea , constipation, blood in urine or stool, dysuria, urinary frequency or urgency, lightheadedness, dizziness, headache, memory loss, loss of consciousness, rash, abnormal bruising or bleeding, focal weakness, numbness or tingling in arms or legs, back or neck pain, or night sweats. The review of systems is otherwise negative other than for that already noted above, and at least 10 systems have been reviewed. Physical Exam Physical Exam: The patient is awake, alert and oriented 3, appears emaciated, normocephalic and atraumatic, lying in bed and in no acute distress. HEENT--PERRL, EOMI, mucous membranes and oropharynx dry. Neck--supple. No JVD. No bruits. Thyroid normal, trachea midline, no adenopathy. Heart--normal S1 and S2. No murmurs, rubs or gallops. Lungs--clear bilaterally, no respiratory distress, no accessory muscle use. Abdomen--normal bowel sounds and soft. Nontender. Nondistended Extremities--no cyanosis or clubbing. No edema. Dermatologic--skin is dry Neurologic--cranial nerves II through XII grossly intact. Rheumatologic--normal range of motion. Psychiatric--normal affect. Results & Data Results & Data ([facility]) Vital Signs (Past 12 Hours) Vital Signs Temp Pulse Pulse Resp BP BP Pulse Ox 03/13/21 00:09 81 16 105/70 100 03/12/21 22:33 81 16 102/81 96 03/12/21 22:32 81 16 96 03/12/21 22:03 96 03/12/21 20:54 97.7 F 82 24 101/82 97 Laboratory Results Laboratory Results WBC 7.71 K/uL (4.8-10.8) 03/12/21 22:01 RBC 2.81 M/uL (4.2-5.4) L 03/12/21 22:01 Hgb 8.6 g/dL (12.0-16.0) L 03/12/21 22:01 Hct 26.3 % (37-47) L 03/12/21 22:01 MCV 93.6 fL (80-100) 03/12/21 22:01 MCH 30.6 pg (25-34) 03/12/21 22:01 MCHC 32.7 g/dL (32-36) 03/12/21 22:01 RDW Std Deviation 52.3 fL (36.4-46.3) H 03/12/21 22:01 RDW Coeff of Nazario 15.4 % (11.5-14.5) H 03/12/21 22:01 Plt Count 311 K/uL (130-400) 03/12/21 22:01 MPV 10.6 fL (7.4-10.4) H 03/12/21 22:01 Immature Gran % (Auto) 0.3 % 03/12/21 22:01 Neut % (Auto) 57.3 % 03/12/21 22:01 Lymph % (Auto) 27.6 % 03/12/21 22:01 Nelson % (Auto) 11.5 % 03/12/21 22:01 Eos % (Auto) 2.5 % 03/12/21 22:01 Baso % (Auto) 0.8 % 03/12/21 22:01 Neut # (Auto) 4.42 K/uL (1.4-6.5) 03/12/21 22:01 Lymph # (Auto) 2.13 K/uL (1.2-3.4) 03/12/21 22:01 Nelson # (Auto) 0.89 K/uL (0.11-0.59) H 03/12/21 22:01 Eos # (Auto) 0.19 K/uL (0-0.5) 03/12/21 22:01 Baso # (Auto) 0.06 K/uL (0-0.2) 03/12/21 22:01 Immature Gran # (Auto) 0.02 K/uL (0.00-0.02) 03/12/21 22:01 APTT Cancelled 03/12/21 22:01 PTT Ratio Cancelled 03/12/21 22:01 Sodium 133 mmol/L (136-145) L 03/12/21 22:01 Potassium 5.8 mmol/L (3.5-5.1) H 03/12/21 22:01 Chloride 101 mmol/L (98-107) 03/12/21 22:01 Carbon Dioxide 24 mmol/L (21-32) 03/12/21 22:01 Anion Gap 7.0 (3-11) 03/12/21 22:01 BUN 34 mg/dl (7-18) H 03/12/21 22:01 Creatinine 2.06 mg/dl (0.6-1.2) H 03/12/21 22:01 Est Cr Clr Drug Dosing Not Reportable 03/12/21 22:01 Est GFR ( Amer) 27.0 ml/min 03/12/21 22: Est GFR (Non-Af Amer) 23.3 ml/min 03/12/21 22:01 BUN/Creatinine Ratio 16.4 (10-20) 03/12/21 22: Glucose 108 mg/dl (70-99) H 03/12/21 22: Calcium 8.7 mg/dl (8.5-10.1) 03/12/21 22: Total Bilirubin 0.8 mg/dl (0.2-1) 03/12/21 22:01 AST 160 U/L (15-37) H 03/12/21 22:01 ALT 109 U/L (12-78) H 03/12/21 22:01 Alkaline Phosphatase 187 U/L (45-117) H 03/12/21 22:01 Troponin I 0.030 ng/ml (0-0.045) 03/12/21 22: NT-Pro-B Natriuret Pep 75884 pg/ml (0-900) H 03/12/21 22:01 Total Protein 6.9 gm/dl (6.4-8.2) 03/12/21 22: Albumin 3.0 gm/dl (3.4-5.0) L 03/12/21 22: Globulin 3.9 gm/dl (2.5-4.0) 03/12/21 22: Albumin/Globulin Ratio 0.8 (0.9-2) L 03/12/21 22: Lipase 185 U/L (73-393) 03/12/21 22:01 Urine Color Janine 03/13/21 00:23 Urine Appearance Clear (Clear) 03/13/21 00:23 Urine pH 5.0 (4.5-7.5) 03/13/21 00:23 Ur Specific [place] 1.018 (1.000-1.030) 03/13/21 00:23 Urine Protein Trace (Negative) H 03/13/21 00:23 Urine Glucose (UA) Negative (Negative) 03/13/21 00:23 Urine Ketones Negative (Negative) 03/13/21 00:23 Urine Blood Negative (Negative) 03/13/21 00:23 Urine Nitrite Positive (Negative) A 03/13/21 00:23 Urine Bilirubin 1+ (Negative) H 03/13/21 00:23 Urine Urobilinogen Negative (Negative) 03/13/21 00:23 Ur Leukocyte Esterase 1+ (Negative) H 03/13/21 00:23 Urine WBC (Auto) 10-30 /hpf (0-5) H 03/13/21 00:23 Urine RBC (Auto) 0-4 /hpf (0-4) 03/13/21 00:23 U Hyaline Cast (Auto) >30 /lpf (0-5) H 03/13/21 00:23 U Epithel Cells (Auto) >30 /lpf (0-5) H 03/13/21 00:23 Urine Bacteria (Auto) 1+ (Negative) H 03/13/21 00:23 COVID-19 Eval Order Covid19 at [facility] 03/12/21 22:44 SARS-CoV-2 (PCR) NEGATIVE (Negative) 03/12/21 22:44 Code Status & VTE Plan Code Status Full code VTE Prophylaxis Plan VTE Prophylaxis will be ordered: Yes PG Care Time/CCT Total # of Minutes Spent Total Time Spent with Patient: Total time spent is greater than 50% in coordination of care (as documented) at patient's floor/unit and/or counseling patient: Coding Level of Care Code 93293 Initial Inpt Care Lvl 2 Diagnoses Weakness R53.1 Acute hyperkalemia E87.5 Acute kidney injury superimposed on chronic kidney disease N17.9; N18.9 Chronic respiratory failure with hypoxia J96.11 Cardiorenal syndrome I13.0 Heart failure presence: with heart failure Hypertensive chronic kidney disease stage: stage 1-4 or unspecified ch ronic kidney disease Adult failure to thrive R62.7 Cardiomyopathy I42.9 Cardiomyopathy type: unspecified Dyslipidemia E78.5 Depression F32.9 Hypothyroidism E03.9 (1) Cardiorenal syndrome Heart failure presence: with heart failure Hypertensive chronic kidney disease stage: stage 1-4 or unspecified chronic kidney disease Qualified Code(s): I13.0 - Hypertensive heart and chronic kidney disease with heart failure and stage 1 through stage 4 chronic kidney disease, or unspecified chronic kidney disease (2) Cardiomyopathy Cardiomyopathy type: unspecified Qualified Code(s): I42.9 - Cardiomyopathy, unspecified
[2021-03-13 01:25] LABS: Appearance Urine Clear (Clear); Blood Urine Negative (Negative); Epithelial Cell Urine Auto >30 /lpf (0-5); Glucose Urine UA Negative (Negative); Ketones Urine Negative (Negative); Leukocyte Esterase Urine 1+ (Negative); Nitrite Urine Positive (Negative); Protein Urine Trace (Negative); RBC Urine Automated 0-4 /hpf (0-4); Specific Gravity Urine 1.018 (1.000-1.030); Urobilinogen Urine Negative (Negative)
[2021-03-13 02:13] LABS: Bilirubin Urine 1+ (Negative)
[2021-03-13 02:14] LABS: Color Urine Amber
[2021-03-13 02:15] LABS: Cast Urine Automated >30 /lpf (0-5)
[2021-03-13] MEDS ORDERED: ONDANSETRON INJ 2 MG/ML 2 ML VIAL IV PRN (02:15)
[2021-03-13 02:39] LABS: Bacteria Urine Automated 1+ (Negative)
[2021-03-13] MEDS ORDERED: FAMOTIDINE 20 MG TAB PO SCH (02:45)
[2021-03-13] MEDS: ACETAMINOPHEN 500 MG TAB PO PRN ×2 (02:51→11:30)
[2021-03-13] MEDS: RANOLAZINE 500 MG ER TAB PO SCH ×3 (03:09→21:01)
[2021-03-13] MEDS: FAMOTIDINE 10 MG TABLET PO SCH (04:14)
[2021-03-13] MEDS: LEVOTHYROXINE SODIUM 100 MCG TABLET PO SCH (05:33)
--- NOTE | 2021-03-13 07:58 | XRay Report ---
XR chest 1V portable CLINICAL HISTORY: Chest Pain COMPARISON STUDY: February 22, 2021 FINDINGS: No pneumothorax. Previously seen left pleural effusion is nearly resolved. Significant interval improvement of the rig ht pleural effusion, now appear small. Interval improvement of atelectasis/infiltrates at bilateral lower lungs. Mild to moderate cardiomegaly is again seen, stable since prior. Aorta is calcified. Stable position of left-sided single lead AICD with battery pack partially obscuring left lung parenc hyma. Coronary stent is demonstrated. Mild pulmonary vascular congestion is seen.. Osseous structures: Degenerative changes of the spine. Status post vertebroplasty is again seen. IMPRESSION: 1. Heart failure pattern with interval improvement of pleural effusions and atelectasis/infiltrates at bilateral lower lungs. 2. Atherosclerosis. 3. The rest of findings as above. ACT 112: Negative or not required by law. The above report was generated using voice recognition software. It may contain grammatical, syntax o r spelling errors. Electronically signed by: Ailyn Harrison DO 03/13/2021 7:57 AM
[2021-03-13] MEDS: CLOPIDOGREL BISULFATE 75 MG TAB PO SCH (08:10)
[2021-03-13] MEDS: PARoxetine HCL 20 MG TAB PO SCH (08:10)
[2021-03-13 08:18] LABS: Basophils # (auto) 0.03 K/uL (0-0.2); Basophils % (auto) 0.4 %; Eosinophils % (auto) 2.7 %; Hemoglobin 9.1 g/dL (12.0-16.0); Immature Granulocytes # (auto) 0.02 K/uL (0.00-0.02); Immature Granulocytes % (auto) 0.3 %; Lymphocytes # (auto) 1.67 K/uL (1.2-3.4); Lymphocytes % (auto) 22.9 %; Mean Corpuscular Hemoglobin 30.2 pg (25-34); Mean Corpuscular Hgb Conc 32.5 g/dL (32-36); Mean Platelet Volume 10.7 fL (7.4-10.4); Monocytes % (auto) 16.5 %; Neutrophils # (auto) 4.16 K/uL (1.4-6.5); Neutrophils % (auto) 57.2 %; Platelet Count 273 K/uL (130-400); RDW Coefficient of Variation 15.5 % (11.5-14.5); Red Blood Count 3.01 M/uL (4.2-5.4); White Blood Count 7.28 K/uL (4.8-10.8)
[2021-03-13 08:53] LABS: Albumin Level 2.5 gm/dl (3.4-5.0); BUN Creatinine Ratio 18.7 (10-20); Calcium 8.6 mg/dl (8.5-10.1); Creatinine Clr Calc Pharmacy 19.6 ml/min; Est GFR (African American) 27.7 ml/min; Est GFR (Non-African American) 23.9 ml/min; Potassium 5.9 mmol/L (3.5-5.1)
[2021-03-13 09:02] LABS: Albumin Globulin Ratio 0.8 (0.9-2); Bilirubin,Total 1.1 mg/dl (0.2-1); Globulin 3.3 gm/dl (2.5-4.0); Total Protein 5.8 gm/dl (6.4-8.2)
[2021-03-13] MEDS: cefTRIAXone SODIUM 1,000 MG in DEXTROSE 5% 50 ML IV SCH (10:54)
[2021-03-13] MEDS: SODIUM POLYSTYRENE SULFONATE 15G/60ML SUSP PO SCH ×2 (11:29→21:02)
--- NOTE | 2021-03-13 13:59 | Palliative Care Consultation ---
Date of Consultation March 13, 2021 Assessment & Plan (1) Weakness: Expected with advanced heart failure and ischemic cardiomyopathy. 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 (2) Palliative care encounter: I talked in detail with Melida about her illness and her understanding of this. She tells me that her heart is very weak but doesn't understand why there isn't something else that can be done. We talked about the impact on her other organs, her kidney failure and overall frailty contributing to her poor prognosis. She voices understanding and asks me if she is going to . We talked about her prognosis likely being weeks to months and she tells me that she would want to be at home for her dying time. I spoke with her daughter to clarify goals of care and how hospice is working for them at home. Krystal is completely overwhelmed with caring for both of her ill parents, handling the clean out and sale of their home and working mechanical piping designer. She does not have support from other family members and has been doing this on her own. She does not feel that it is possible to continue to care for both of them at home. We discussed the possibility of placement and she will consider this and work with case management. I did also let her know that hospice would provide a five day respite stay as part of the benefit if she wanted to consider bringing her mother home with hospice. She does understand that rehospitalization is generally not consistent with hospice level of care and would like to honor her mother's wish not to return to the hospital. She understands her poor prognosis and is supportive of a comfort oriented approach to her care. Discussed with case management. (3) Acute kidney injury superimposed on chronic kidney disease: (4) Cardiorenal syndrome: Heart failure presence: with heart failure Hypertensive chronic kidney disease stage: stage 1-4 or unspecified chronic kidney disease Qualified Code(s): I13.0 - Hypertensive heart and chronic kidney disease with heart failure and stage 1 through stage 4 chronic kidney disease, or unspecified chronic kidney disease (5) Acute on chronic systolic heart failure: (6) Acute hyperkalemia: History of Present Illness Reason for Consultation: goals of care Requesting Physician: Dr. Navarro Attending Physician: Keyon Navarro MD History of Present Illness 75 yo lady with ischemic cardiomyopathy with ICD, cardiorenal syndrome and chronic hypoxic respiratory failure. She was admitted earlier this month with heart failure exacerbation and was seen by palliative care during that visit. At that time, after discussion of her poor prognosis, Melida indicated that she would prefer to be at home until her dying time and she was discharged with [facility] to follow at home. While at home, she had increasing fatigue, shortness of breath and poor po intake. Her daughter, Krystal, who is a nurse, noticed that she was having increased edema and called hospice. Per Krystal, she was told to bring her mother to the emergency room. She is now admitted with MARILYN on CKD and hyperkalemia. She tells me that her breathing feels better today. She is very weak and at times does not seem to understand the extent of her illness. She tells me that she just wants to go home and be with her dog. We have been consulted to assist with goals of care. Allergies Allergy/AdvReac Type Severity Reaction Status Date / Time red (food color) Allergy Unknown Verified 03/12/21 22:16 Iodinated Contrast Media AdvReac Unknown Unknown Unverified 03/12/21 22:16 Home Medications Medication Instructions Recorded Confirmed Type clopidogrel 75 mg tablet (Plavix) 75 mg PO QAM 12/15/20 02/21/21 History digoxin 125 mcg (0.125 mg) tablet 125 mcg PO 2XWK 12/15/20 02/21/21 History levothyroxine 100 mcg tablet 100 mcg PO DAILYBB 12/15/20 03/12/21 History magnesium oxide 400 mg PO QAM 12/15/20 02/21/21 History ranolazine 1,000 mg 1,000 mg PO BID 12/15/20 02/21/21 History tablet,extended release,12 hr (Ranexa) bumetanide 1 mg tablet 1 mg PO DAILY 30 Days #30 tab 12/19/20 02/21/21 Rx atorvastatin 10 mg tablet 10 mg PO HS 02/21/21 03/13/21 History paroxetine HCl 40 mg tablet 20 mg PO DAILY 02/21/21 02/21/21 History amitriptyline 50 mg tablet 50 mg PO HS 03/12/21 03/12/21 History famotidine 20 mg tablet 20 mg PO BID 03/12/21 03/12/21 History ondansetron 4 mg disintegrating 4 mg TRANSLINGUAL Q6 PRN 03/12/21 03/12/21 History tablet quetiapine 50 mg tablet 50 mg PO QPM 03/12/21 03/12/21 History Patient History Medical History Acute hyperkalemia Acute hypotension Anemia Cardiomyopathy Chronic systolic heart failure Depression Dyslipidemia Fall Hypothyroidism ICD (implantable cardioverter-defibrillator) in place LBBB (left bundle branch block) Meningioma Mitral regurgitation Surgical History H/O gastric bypass Family History Other Cancer Coronary heart disease Diabetes Hypertension Social History Smoking Status: Former smoker Second Hand Exposure: No; Do You Dip or Chew Tobacco: No; Hx Alcohol Use: No Hx Substance Use: No Preferred Language: [place]i Communication Ability: Effective Lime Puller Required: No Beliefs That Will Affect Care: None marital status: Current Living Situation: Spouse and Family Current Living Situation Comment: patient and live with daughter Other Information That Helps Us Care for You: No Feels Safe at Home: Yes Safety Concerns: Feels Safe At This Time Assistive Devices: Oxygen - Continuous and Walker Review of Systems Review of Systems: [place] Symptom Assessment Score Pain 0/3 Dyspnea 1/3 Fatigue 3/3 Anorexia 2/3 Nausea 0/3 Drowsiness 0/3 Palliative Performance Score 30% Physical Exam Constitutional: + thin and + frail appearing Respiratory: normal respiratory effort; no labored breathing Musculoskeletal: Extremities: + muscle atrophy Neurologic: awake; not confused Results & Data ([facility]) Vital Signs (Past 12 Hours) Vital Signs Temp Pulse Pulse Resp BP BP Pulse Ox 03/13/21 11:00 97.5 F L 83 18 92/73 L 91 03/13/21 07:32 74 03/13/21 07:00 97.5 F L 16 102/67 03/13/21 02:57 77 03/13/21 02:15 98.1 F 61 18 103/68 92 Pulse Ox 03/13/21 11:00 03/13/21 07:32 03/13/21 07:00 03/13/21 02:57 03/13/21 02:15 92 PG Care Time/CCT Total # of Minutes Spent Total Time Spent: 90 Total Time Spent with Patient: Total time spent is greater than 50% in coordination of care (as documented) at patient's floor/unit and/or counseling patient:goals of care, hospice, family education and support Coding Level of Care Code 54436 Initial Inpt Care Lvl 3 Diagnoses Weakness R53.1 Palliative care encounter Z51.5 Acute kidney injury superimposed on chronic kidney disease N17.9; N18.9 Cardiorenal syndrome I13.0 Heart failure presence: with heart failure Hypertensive chronic kidney disease stage: stage 1-4 or unspecified chronic kidney disease Acute on chronic systolic heart failure I50.23 Acute hyperkalemia E87.5
[2021-03-13] MEDS ORDERED: BUMETANIDE 1 MG in SYRINGE 0 ML IV STA (15:56)
[2021-03-13] MEDS ORDERED: DEXTROSE 50% 50 ML SYRINGE IV ONE (16:00)
[2021-03-13] MEDS ORDERED: INSULIN HUMAN REGULAR PER UNIT 10 UNITS in SYRINGE 9.9 ML IV ONE (16:01)
--- NOTE | 2021-03-13 16:09 | Hospitalist Progress Note ---
Date of Service March 13, 2021 Assessment & Plan (1) Goals of care, counseling/discussion: Plan: Appreciate palliative care consult. I suspect her prognosis is more dire than what is written however as she appears to be entering multi-organ failure unless diuresis can help. (2) Cardiorenal syndrome: Plan: Cardiorenal syndrome, progressing to cardio hepatorenal syndrome - discussed multiorgan failure with her daughter. Without intervention I suspect she has days to live rather than weeks/months. IV fluids overnight suspect caused liver congestion. History of leg swelling and reduced urination consistent with hypervolemic state. JVD on exam. (3) Acute kidney injury superimposed on chronic kidney disease: Plan: Creatinine 2.06 upon admission, with range 1.22-1.66 Stop IV fluids - patient clinically hypervolemic in cardiorenal syndrome as above Bumex 1mg IV now. Limited diuresis available due to hypotension. (4) Weakness: Plan: Multifactorial: MARILYN on CKD, dehydration, abnormal liver function, cardiorenal syndrome and others (5) UTI (urinary tract infection): Plan: Possible diagnosis based on UA and generalized weakness Start ceftriaxone 1g IV dialy Follow up urine culture (6) Acute hyperkalemia: Plan: Suspect secondary to renal failure - see cardiorenal syndrome as above. Kayexalate started Discussed with her daughter and will treat more aggressively with insulin/dextrose Repeat level in AM (7) Chronic respiratory failure with hypoxia: Plan: Stable (8) Adult failure to thrive: Plan: Patient had been admitted to home hospice, but had been referred to the ED by hospice (9) Cardiomyopathy: Plan: See above (10) Dyslipidemia: Plan: Atorvastatin 10 mg daily (11) Depression: Plan: Continue amitriptyline, paroxetine and Seroquel (12) Hypothyroidism: Plan: Continue levothyroxine Admission and Anticipated Discharge Date Admission Date: March 13, 2021 Subjective Patient admitted the same day therefore I will not be billing for this encounter. Note for clinical purpose only. Patient previously on hospice care. Worsening LFTs overnight with IV fluids suggestive of liver congestion. Patient however feels better overnight. Wishes to go home. Appreciate palliative care consult. Discussed with ki Rice and since patient is staying and not being discharged on hospice today she wishes her to be treated for cardiorenal syndrome with diuretics. Agreed to also treat hyperkalemia with insulin/dextrose. Goal is still to go home on hospice but with more support. Will not escalate care to central line but ok to put in coughlin catheter if needed. Results & Data Results & Data ([facility]) Vital Signs (Past 12 Hours) Vital Signs Temp Pulse Pulse Resp BP BP Pulse Ox 03/13/21 15:37 79 03/13/21 15:00 36.3 C L 76 18 89/69 L 99 03/13/21 11:00 36.4 C L 83 18 92/73 L 91 03/13/21 07:32 74 03/13/21 07:00 36.4 C L 16 102/67 PG Care Time/CCT Total # of Minutes Spent Total Time Spent with Patient: Total time spent is greater than 50% in coordination of care (as documented) at patient's floor/unit and/or counseling patient: Coding Level of Care Code None Diagnoses Weakness R53.1 Acute kidney injury superimposed on chronic kidney disease N17.9; N18.9 Acute hyperkalemia E87.5 Chronic respiratory failure with hypoxia J96.11 Adult failure to thrive R62.7 Cardiomyopathy I42.9 Cardiomyopathy type: unspecified Dyslipidemia E78.5 Depression F32.9 Hypothyroidism E03.9 Cardiorenal syndrome I13.10 UTI (urinary tract infection) N39.0 Goals of care, counseling/discussion Z71.89 (1) Cardiomyopathy Cardiomyopathy type: unspecified Qualified Code(s): I42.9 - Cardiomyopathy, unspecified
[2021-03-13] MEDS: ATORVASTATIN 10 MG TAB PO SCH (21:01)
[2021-03-13] MEDS: AMITRIPTYLINE HCL 50 MG TAB PO SCH (21:01)
[2021-03-13] MEDS: QUEtiapine FUMARATE 25 MG TABLET PO SCH (21:01)
--- NOTE | 2021-03-13 23:33 | Electrocardiogram Report ---
Test Reason : Blood Pressure : / mmHG Vent. Rate : 083 BPM Atrial Rate : 083 BPM P-R Int : 196 ms QRS Dur : 162 ms QT Int : 442 ms P-R-T Axes : 030 -67 092 degrees QTc Int : 519 ms Normal sinus rhythm Left axis deviation Non-specific intra-ventricular conduction block Possible Anterolateral infarct , age undetermined Abnormal ECG When compared with ECG of 22-FEB-2021 22:19, No significant change Confirmed by Luiz Santos ([id number]) on 03/13/2021 11:32:50 PM Referred By: REFERRED SELF Confirmed By:Luiz Santos
[2021-03-14] MEDS: LEVOTHYROXINE SODIUM 100 MCG TABLET PO SCH (06:02)
[2021-03-14 07:21] LABS: Basophils # (auto) 0.01 K/uL (0-0.2); Basophils % (auto) 0.1 %; Eosinophils # (auto) 0.07 K/uL (0-0.5); Eosinophils % (auto) 0.9 %; Hematocrit (blood only) 27.4 % (37-47); Hemoglobin 9.1 g/dL (12.0-16.0); Immature Granulocytes # (auto) 0.02 K/uL (0.00-0.02); Immature Granulocytes % (auto) 0.3 %; Lymphocytes # (auto) 1.02 K/uL (1.2-3.4); Lymphocytes % (auto) 13.8 %; Mean Corpuscular Hemoglobin 30.7 pg (25-34); Mean Corpuscular Hgb Conc 33.2 g/dL (32-36); Mean Corpuscular Volume 92.6 fL (80-100); Mean Platelet Volume 11.1 fL (7.4-10.4); Monocytes # (auto) 0.91 K/uL (0.11-0.59); Monocytes % (auto) 12.3 %; Neutrophils # (auto) 5.38 K/uL (1.4-6.5); Neutrophils % (auto) 72.6 %; Platelet Count 221 K/uL (130-400); RDW Coefficient of Variation 15.3 % (11.5-14.5); RDW Standard Deviation 51.3 fL (36.4-46.3); Red Blood Count 2.96 M/uL (4.2-5.4); White Blood Count 7.41 K/uL (4.8-10.8)
[2021-03-14 07:51] LABS: Albumin Level 2.4 gm/dl (3.4-5.0); BUN Creatinine Ratio 18.7 (10-20); Creatinine Clr Calc Pharmacy 17.5 ml/min; Est GFR (African American) 24.2 ml/min; Est GFR (Non-African American) 20.8 ml/min; Magnesium 2.4 mg/dl (1.8-2.4); Potassium 5.4 mmol/L (3.5-5.1)
[2021-03-14 07:56] LABS: Albumin Globulin Ratio 0.8 (0.9-2); Total Protein 5.4 gm/dl (6.4-8.2)
[2021-03-14] MEDS: CLOPIDOGREL BISULFATE 75 MG TAB PO SCH (08:06)
[2021-03-14] MEDS: PARoxetine HCL 20 MG TAB PO SCH (08:06)
[2021-03-14] MEDS: FAMOTIDINE 10 MG TABLET PO SCH (08:06)
[2021-03-14] MEDS: RANOLAZINE 500 MG ER TAB PO SCH ×2 (08:06→20:11)
[2021-03-14] MEDS: SODIUM POLYSTYRENE SULFONATE 15G/60ML SUSP PO SCH ×2 (08:06→20:11)
[2021-03-14] MEDS: cefTRIAXone SODIUM 1,000 MG in DEXTROSE 5% 50 ML IV SCH (09:17)
--- NOTE | 2021-03-14 13:32 | Palliative Care Progress Note ---
Date of Service March 14, 2021 Assessment & Plan (1) Anxiety: Plan: On paroxetine. Melida very much wants to go home and be with her family. She tells me that she doesn't feel ready to . She has multiple stressors with moving in to her daughter's house so that Krystal can provide care, and current hospitalization of her in [place] and some tension in family regarding care. All of this in addition to her advanced illness. (2) Fatigue: Plan: with MARILYN, UTI in the setting of advanced heart failure (3) Palliative care encounter: Plan: I talked with Melida about going home with hospice. She very much wants to be at home but is frightened when she gets short of breath and reflexively wants to come to the hospital. We talked about hospice being able to manage her shortness of breath at home to allow her to remain at home with her family for the short time that she has left. She voices understanding. I reassured her that we are all working together to provide the best care and support for her to be able to remain at home. Her daughter, Krystal, is hoping to hire paid caregivers to relieve some of the burden of caregiving. Case management is coordinating this with her hospice agency. (4) Acute on chronic systolic heart failure: (5) Cardiomyopathy: (6) Chronic respiratory failure with hypoxia: (7) Acute kidney injury superimposed on chronic kidney disease: (8) Cardiorenal syndrome: (9) UTI (urinary tract infection): Admission and Anticipated Discharge Date Admission Date: March 13, 2021 Subjective More tired today. Denies pain. Reports that breathing is "ok". Review of Systems Review of Systems: [place] symptom Assessment Scale Pain 0/3 Dyspnea 1/3 Anxiety 2/3 Fatigue 2/3 Anorexia 2/3 Palliative Performance Score 30% Physical Exam Constitutional: + ill appearing and + cachectic Respiratory: normal respiratory effort; no labored breathing Cardiovascular: Extremities: + edema (trace) Gastrointestinal (Abdomen): RUQ tenderness Musculoskeletal: Extremities: + muscle atrophy Neurologic: awake; not confused Psychiatric: Mood: + anxious mood Results & Data ([facility]) Vital Signs (Past 12 Hours) Vital Signs Temp Pulse Pulse Resp BP BP Pulse Ox 03/14/21 11:35 97.2 F L 76 18 99/71 L 100 09/01/21 07:43 97.9 F 82 16 101/69 95 03/14/21 07:27 79 03/14/21 02:44 97.5 F L 73 16 92/70 L 99 PG Care Time/CCT Total # of Minutes Spent Total Time Spent with Patient: Total time spent is greater than 50% in coordination of care (as documented) at patient's floor/unit and/or counseling patient: Coding Level of Care Code 79830 Subseq Hosp Care Lvl 2 Diagnoses Fatigue R53.83 Anxiety F41.9 Acute on chronic systolic heart failure I50.23 Cardiomyopathy I42.9 Cardiomyopathy type: unspecified Palliative care encounter Z51.5 Chronic respiratory failure with hypoxia J96.11 Acute kidney injury superimposed on chronic kidney disease N17.9; N18.9 Cardiorenal syndrome I13.10 UTI (urinary tract infection) N39.0 (1) Cardiomyopathy Cardiomyopathy type: unspecified Qualified Code(s): I42.9 - Cardiomyopathy, unspecified
--- NOTE | 2021-03-14 14:28 | Ultrasound Report ---
US venous doppler LE BI CLINICAL HISTORY: leg swelling and calf pain COMPARISON STUDY: No previous studies for comparison. FINDINGS: Real-time and color flow Doppler imaging were performed. Flow was seen within the femoral, popliteal and calf veins with no intraluminal thrombus demonstrated. The saphenous vein is patent. IMPRESSION: No evidence of deep venous thrombosis. ACT 112: Negative or not required by law. The above report was generated using voice recognition software. It may contain grammatical, syntax o r spelling errors. Electronically signed by: Ailyn Harrison DO 03/14/2021 2:27 PM
--- NOTE | 2021-03-14 19:08 | Hospitalist Progress Note ---
Date of Service March 14, 2021 Assessment & Plan (1) Goals of care, counseling/discussion: Plan: Appreciate palliative care consult. Planning on discharging home tomorrow on hospice care. (2) Cardiorenal syndrome: Plan: Cardiorenal syndrome, progressing to cardio hepatorenal syndrome - discussed multiorgan failure with her daughter yesterday. Bumex caused bump in Cr therefore suspect much her heart failure is right sided and Bumex appears to just be accelerating her decline. US venous dopplers negative (3) Transaminitis: Plan: Concerning for liver congestion/ in setting of cardiorenal syndrome. No abdominal pain. Will defer further workup given palliative goal of care ?ischemic/liver congestion. (4) Acute kidney injury superimposed on chronic kidney disease: Plan: Creatinine 2.06 upon admission, with range 1.22-1.66 Given improved CXR and worsening renal function with Bumex will discontinue further diuretics. IV fluids did not improve transaminitis (see above). (5) Weakness: Plan: Multifactorial: MARILYN on CKD, dehydration, abnormal liver function, cardiorenal syndrome and others (6) UTI (urinary tract infection): Plan: Possible diagnosis based on UA and generalized weakness Continue ceftriaxone 1g IV daily Follow up urine culture (7) Acute hyperkalemia: Plan: Suspect secondary to renal failure - see cardiorenal syndrome as above. Kayexalate started Discussed with her daughter and will treat more aggressively with insulin/dextrose Potassium improving. Will continue on Kayexelate. (8) Chronic respiratory failure with hypoxia: Plan: Stable (9) Adult failure to thrive: Plan: Patient had been admitted to home hospice. Planning on discharging again on hospice. (10) Cardiomyopathy: Plan: See above (11) Dyslipidemia: Plan: Atorvastatin 10 mg daily (12) Depression: Plan: Continue amitriptyline, paroxetine and Seroquel (13) Hypothyroidism: Plan: Continue levothyroxine Admission and Anticipated Discharge Date Admission Date: March 13, 2021 Subjective Patient reports no significant change in symptoms. No chest pain or shortness of breath. Tried calling daughter Krystal but no answer on number provided. Review of Systems Review of Systems: All systems reviewed & are unremarkable except as noted in HPI & below Physical Exam Constitutional: + thin and + frail appearing Respiratory: normal respiratory effort; no labored breathing Cardiovascular: Rate/Rhythm: regular rate and regular rhythm Extremities: + pedal edema Gastrointestinal (Abdomen): Percussion/Palpation: abdomen soft; abdomen nontender Musculoskeletal: Extremities: + muscle atrophy Neurologic: awake; not confused Results & Data Results & Data ([facility]) Vital Signs (Past 12 Hours) Vital Signs Temp Pulse Pulse Resp BP BP Pulse Ox 03/14/21 16:00 36.3 C L 74 18 93/66 L 96 03/14/21 11:35 36.2 C L 76 18 99/71 L 100 03/14/21 07:43 36.6 C 82 16 101/69 95 03/14/21 07:27 79 PG Care Time/CCT Total # of Minutes Spent Total Time Spent with Patient: Total time spent is greater than 50% in coordination of care (as documented) at patient's floor/unit and/or counseling patient: Coding Level of Care Code 16790 Subseq Hosp Care Lvl 2 Diagnoses Goals of care, counseling/discussion Z71.89 Cardiorenal syndrome I13.10 Acute kidney injury superimposed on chronic kidney disease N17.9; N18.9 Weakness R53.1 UTI (urinary tract infection) N39.0 Acute hyperkalemia E87.5 Chronic respiratory failure with hypoxia J96.11 Adult failure to thrive R62.7 Cardiomyopathy I42.9 Cardiomyopathy type: unspecified Dyslipidemia E78.5 Depression F32.9 Hypothyroidism E03.9 Transaminitis R74.01 (1) Cardiomyopathy Cardiomyopathy type: unspecified Qualified Code(s): I42.9 - Cardiomyopathy, unspecified
[2021-03-14] MEDS: ATORVASTATIN 10 MG TAB PO SCH (20:10)
[2021-03-14] MEDS: QUEtiapine FUMARATE 25 MG TABLET PO SCH (20:11)
[2021-03-14] MEDS: AMITRIPTYLINE HCL 50 MG TAB PO SCH (20:11)
[2021-03-14 23:07] VITALS: BP 95/60; PULSE 76; TEMP 97.7; O2SAT 90
--- NOTE | 2021-03-15 01:37 | Communication Note ---
Date of Service: March 15, 2021 Family present at bedside and not wanting to escalate care further at this point, but not ready to withdraw. Interested in private rooming due to concerns that taking patient home on hospice tomorrow may be difficult with her labile prognosis. Will take patient off telemetry at this time to downgrade to private room on medical. 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
[2021-03-15] MEDS: LORazepam 1 MG/2 ML VIAL IV PRN (02:45)
--- NOTE | 2021-03-15 03:28 | Communication Note ---
Date of Service: March 15, 2021 Asked to return to bedside to speak with patient's daughter Krystal. Discussed with Krystal for roughly half an hour in regards to her concerns about her mother, Melida. She noted that she had significant concerns that although the plan was to bring her mother back home to her house for hospice care, she feels that this is no longer a realistic option now that she has been able to sit down and be with her tonight. She notes significant concerns that hospice at home at this time would not be able to keep her mother comfortable and avoid any forms of marsh ffering. She feels that at this time comfort measures in the hospital would be the most appropriate option for the end of life care for her mother Melida. She notes that at this time that her mother would not want to continue with further treatments and the goal is comfort. -At this time will continue with transfer of patient from Telemetry to Med/Surg -Comfort care order set placed, Palliative already following -With patient's significantly decreased renal function, will utilize 0.5mg IV q4h PRN for pain
[2021-03-15] MEDS ORDERED: LORazepam 0.5 MG TAB PO PRN (03:55)
[2021-03-15] MEDS ORDERED: ONDANSETRON INJ 2 MG/ML 2 ML VIAL IV PRN (03:55)
[2021-03-15] MEDS ORDERED: LORazepam 0.5 MG/1 ML VIAL IV PRN (03:55)
[2021-03-15] MEDS ORDERED: LORazepam 2 MG/4 ML VIAL IV PRN (03:55)
[2021-03-15] MEDS ORDERED: ONDANSETRON 4 MG OD TAB SL PRN (03:55)
[2021-03-15] MEDS: LORazepam 0.5 MG/1 ML VIAL IV SCH ×3 (04:46→20:13)
--- NOTE | 2021-03-15 15:05 | Hospitalist Progress Note ---
Date of Service March 15, 2021 Assessment & Plan (1) Goals of care, counseling/discussion: Plan: Family did not think home hospice was realisticat present comfort care in hospital; Palliative care involved (2) Cardiorenal syndrome: Plan: Cardiorenal syndrome, progressing to cardio hepatorenal syndrome - multiorgan failure has been discussed with familythey desire comfort care (3) Transaminitis: Plan: Concerning for liver congestion/ in setting of cardiorenal syndrome. No abdominal pain. Will defer further workup given palliative goal of care ?ischemic/liver congestion. (4) Acute kidney injury superimposed on chronic kidney disease: Plan: Creatinine 2.06 upon admission, with range 1.22-1.66 Given improved CXR and worsening renal function with Bumex will discontinue further diuretics. IV fluids did not improve transaminitis (see above). (5) Weakness: Plan: Multifactorial: MARILYN on CKD, dehydration, abnormal liver function, cardiorenal syndrome and others (6) UTI (urinary tract infection): Plan: Was being treatednow comfort care (7) Acute hyperkalemia: Plan: Last potassium improvingat present on comfort care (8) Chronic respiratory failure with hypoxia: Plan: Stablecontinue oxygen for comfort as needed (9) Adult failure to thrive: Plan: On comfort care (10) Cardiomyopathy: Plan: See above (11) Dyslipidemia: Plan: Comfort careall active therapy stopped Admission and Anticipated Discharge Date Admission Date: March 13, 2021 Subjective Original presentation: "The patient is a 75-year-old female with a past medical history of chronic respiratory failure with hypoxia, pneumonia, cardiorenal syndrome, acute on chronic systolic heart failure, adult failure to thrive, anemia, pleural effusion, hypoalbuminemia, left bundle branch block, mitral vegetation, cardiomyopathy, depression, dyslipidemia, hypothyroidism, and ICD in place. She presents the emergency department with generalized fatigue, shortness of breath, dizziness, decreased appetite and decreased liquid intake over the past 24 hours." They decided comfort careresting and comfortable at present Physical Exam Physical Exam: Comfortable; pain-free No air hunger Chest clear PG Care Time/CCT Total # of Minutes Spent Total Time Spent with Patient: Total time spent is greater than 50% in coordination of care (as documented) at patient's floor/unit and/or counseling patient: Coding Level of Care Code 48474 Subseq Hosp Care Lvl 2 Diagnoses Goals of care, counseling/discussion Z71.89 Cardiorenal syndrome I13.10 Transaminitis R74.01 Acute kidney injury superimposed on chronic kidney disease N17.9; N18.9 Weakness R53.1 UTI (urinary tract infection) N39.0 Acute hyperkalemia E87.5 Chronic respiratory failure with hypoxia J96.11 Adult failure to thrive R62.7 Cardiomyopathy I42.9 Cardiomyopathy type: unspecified Dyslipidemia E78.5 (1) Cardiomyopathy Cardiomyopathy type: unspecified Qualified Code(s): I42.9 - Cardiomyopathy, unspecified
[2021-03-16] MEDS: LORazepam 0.5 MG/1 ML VIAL IV SCH ×3 (03:04→20:42)
[2021-03-16] MEDS: HYDROmorphone INJ 0.5 MG/0.5 ML SYR IV PRN ×4 (05:14→18:02)
--- NOTE | 2021-03-16 10:16 | Hospitalist Progress Note ---
Date of Service March 16, 2021 Assessment & Plan (1) Goals of care, counseling/discussion: Plan: On comfort care here; at one point home hospice was contemplated but then family felt that was not realistic (2) Cardiorenal syndrome: Plan: Cardiorenal syndrome, progressing to cardio hepatorenal syndrome - multiorgan failure has been discussed with familythey desire comfort care (3) Transaminitis: Plan: Considered liver congestion; no further work-up (4) Weakness: Plan: Multifactorial: MARILYN on CKD, dehydration, abnormal liver function, cardiorenal syndrome and others (5) UTI (urinary tract infection): Plan: Was being treatednow comfort care (6) Acute hyperkalemia: Plan: Last potassium improvingat present on comfort care (7) Chronic respiratory failure with hypoxia: Plan: Stablecontinue oxygen for comfort as needed (8) Adult failure to thrive: Plan: On comfort care (9) Cardiomyopathy: Plan: See above (10) Dyslipidemia: Plan: Comfort careall active therapy stopped Admission and Anticipated Discharge Date Admission Date: March 13, 2021 Subjective Original presentation: "The patient is a 75-year-old female with a past medical history of chronic respiratory failure with hypoxia, pneumonia, cardiorenal syndrome, acute on chronic systolic heart failure, adult failure to thrive, anemia, pleural effusion, hypoalbuminemia, left bundle branch block, mitral vegetation, cardiomyopathy, depression, dyslipidemia, hypothyroidism, and ICD in place. She presents the emergency department with generalized fatigue, shortness of breath, dizziness, decreased appetite and decreased liquid intake over the past 24 hours." They decided comfort careresting and comfortable at present Physical Exam Physical Exam: Comfortable; pain-free No air hunger Chest clear PG Care Time/CCT Total # of Minutes Spent Total Time Spent with Patient: Total time spent is greater than 50% in coordination of care (as documented) at patient's floor/unit and/or counseling patient: Coding Level of Care Code 05806 Subseq Hosp Care Lvl 1 Diagnoses Goals of care, counseling/discussion Z71.89 Cardiorenal syndrome I13.10 Transaminitis R74.01 Weakness R53.1 UTI (urinary tract infection) N39.0 Acute hyperkalemia E87.5 Chronic respiratory failure with hypoxia J96.11 Adult failure to thrive R62.7 Cardiomyopathy I42.9 Cardiomyopathy type: unspecified Dyslipidemia E78.5 (1) Cardiomyopathy Cardiomyopathy type: unspecified Qualified Code(s): I42.9 - Cardiomyopathy, unspecified
--- NOTE | 2021-03-16 12:34 | Palliative Care Progress Note ---
Date of Service March 16, 2021 Assessment & Plan (1) Palliative care encounter: Plan: Focus of care is strictly comfort at this time. She does appear comfortable with prn hydromorphone. Talked with her son about signs of apnea and mottling which indicate that she is likely within hours of her dying time. They understand. (2) Congestive heart failure: (3) Cardiomyopathy: (4) Multi-organ failure with heart failure: Admission and Anticipated Discharge Date Admission Date: March 13, 2021 Subjective No response to voice or touch. Appears comfortable. She has had hydromorphone x 2 for facial grimace and signs of discomfort. Son is at bedside. Another son is on his way from [place] and due to arrive within a couple hours. Review of Systems Review of Systems: Unobtainable due to reduced consciousness [place] Symptom Assessment Scale PainAD 0/3 Dyspnea by observation 0/3 Palliative Performance Score 10% Physical Exam Constitutional: + ill appearing and + cachectic Respiratory: apnea, shallow respirations, no audible rhonchi Cardiovascular: mottling of knees Musculoskeletal: Extremities: + muscle atrophy Neurologic: + obtunded PG Care Time/CCT Total # of Minutes Spent Total Time Spent with Patient: Total time spent is greater than 50% in coordination of care (as documented) at patient's floor/unit and/or counseling patient: Coding Level of Care Code 64385 Subseq Hosp Care Lvl 2 Diagnoses Palliative care encounter Z51.5 Congestive heart failure I50.23 Heart failure chronicity: acute on chronic Heart failure type: systolic Cardiomyopathy I42.9 Cardiomyopathy type: unspecified Multi-organ failure with heart failure I50.9 (1) Congestive heart failure Heart failure chronicity: acute on chronic Heart failure type: systolic Qualified Code(s): I50.23 - Acute on chronic systolic (congestive) heart failure (2) Cardiomyopathy Cardiomyopathy type: unspecified Qualified Code(s): I42.9 - Cardiomyopathy, unspecified
[2021-03-17] MEDS: GLYCOPYRROLATE 0.2 MG/ML VIAL IV PRN ×2 (01:42→15:50)
[2021-03-17] MEDS: LORazepam 0.5 MG/1 ML VIAL IV SCH ×3 (03:16→21:02)
[2021-03-17] MEDS: ATROPINE SULFATE 1% OP SOLN 5 ML BTL SL PRN ×6 (04:03→18:02)
[2021-03-17] MEDS: HYDROmorphone INJ 0.5 MG/0.5 ML SYR IV PRN ×8 (04:07→23:31)
[2021-03-17] MEDS: LORazepam 1 MG/2 ML VIAL IV PRN (04:16)
[2021-03-17] MEDS ORDERED: LORazepam 0.5 MG/1 ML VIAL IV PRN (04:35)
--- NOTE | 2021-03-17 11:30 | Hospitalist Progress Note ---
Date of Service March 17, 2021 Assessment & Plan (1) Goals of care, counseling/discussion: Plan: On comfort care here; at one point home hospice was contemplated but then family felt that was not realistic (2) Cardiorenal syndrome: Plan: Cardiorenal syndrome, progressing to cardio hepatorenal syndrome - multiorgan failure discussed with familythey desired comfort care (3) Transaminitis: Plan: Considered liver congestion; no further work-up (4) UTI (urinary tract infection): Plan: Was being treatednow comfort care (5) Acute hyperkalemia: Plan: Last potassium improvingat present on comfort care (6) Chronic respiratory failure with hypoxia: Plan: Stablecontinue oxygen for comfort as needed (7) Cardiomyopathy: Plan: See above (8) Dyslipidemia: Plan: Comfort careall active therapy stopped Plan: Nursing requested more frequent hydromorphoneordered Admission and Anticipated Discharge Date Admission Date: March 13, 2021 Subjective Original presentation: "The patient is a 75-year-old female with a past medical history of chronic respiratory failure with hypoxia, pneumonia, cardiorenal syndrome, acute on chronic systolic heart failure, adult failure to thrive, anemia, pleural effusion, hypoalbuminemia, left bundle branch block, mitral vegetation, cardiomyopathy, depression, dyslipidemia, hypothyroidism, and ICD in place. She presents the emergency department with generalized fatigue, shortness of breath, dizziness, decreased appetite and decreased liquid intake over the past 24 hours." They decided comfort careresting and comfortable at present Physical Exam Physical Exam: Intentionally limited to focus on goals with comfort and not interruption during the intent: Comfortable No air hunger Chest clear PG Care Time/CCT Total # of Minutes Spent Total Time Spent with Patient: Total time spent is greater than 50% in coordination of care (as documented) at patient's floor/unit and/or counseling patient: Coding Level of Care Code 28830 Subseq Hosp Care Lvl 2 Diagnoses Goals of care, counseling/discussion Z71.89 Cardiorenal syndrome I13.10 Transaminitis R74.01 UTI (urinary tract infection) N39.0 Acute hyperkalemia E87.5 Chronic respiratory failure with hypoxia J96.11 Cardiomyopathy I42.9 Cardiomyopathy type: unspecified Dyslipidemia E78.5 (1) Cardiomyopathy Cardiomyopathy type: unspecified Qualified Code(s): I42.9 - Cardiomyopathy, unspecified
--- NOTE | 2021-03-18 00:16 | Death Pronouncement Note ---
Date of Service March 18, 2021 Pronouncement Note Admission Date Admission Date: March 13, 2021 Date and Time of Date of : 03/18/21 Time of : 00:06 Contributing Factors (1) Goals of care, counseling/discussion: (2) Cardiorenal syndrome: (3) Transaminitis: (4) UTI (urinary tract infection): (5) Acute hyperkalemia: (6) Chronic respiratory failure with hypoxia: (7) Cardiomyopathy: (8) Dyslipidemia: Hospital Course Hospital Course: See summary Summary Additional details: Called to bedside to pronounce. Patient passed at 12:06AM on 03/18/21 confirmed as above. Family at bedside. Additional Data Confirmation of : no pulse, no respirations, no heart sounds and pupils fixed and dilated Family: at bedside Attending physician: Rian Loredo MD Was code activated?: No Autopsy requested?: No bench examiner notified?: No Organ bank notified?: Yes Resident Activity Tracking Resident Involvement: Resident Care Provided and Business Services Tech Coverage Note Care Provided: Adult Hospital Medicine
--- NOTE | 2021-04-01 10:56 | Discharge Summary ---
Date of Service April 01, 2021 Admission HPI Per Admitting Provider The patient is a 75-year-old female with a past medical history of chronic respiratory failure with hypoxia, pneumonia, cardiorenal syndrome, acute on chronic systolic heart failure, adult failure to thrive, anemia, pleural effusion, hypoalbuminemia, left bundle branch block, mitral vegetation, cardiomyopathy, depression, dyslipidemia, hypothyroidism, and ICD in place. She presents the emergency department with generalized fatigue, shortness of breath, dizziness, decreased appetite and decreased liquid intake over the past 24 hours. Discharge Data Consultations 03/12/21 23:47 ED Decision to Admit Stat 03/13/21 08:14 Consult Palliative Care Routine Hospital Course (1) Goals of care, counseling/discussion: family decide comfort care; patient passed on 03/18/2021, 1206 am, family at bedside. (2) Cardiorenal syndrome: Cardiorenal syndrome, progressing to cardio hepatorenal syndrome - multiorgan failure discussed with familythey desired comfort care (3) Transaminitis: Considered liver congestion; no further work-up (4) UTI (urinary tract infection): Was initially being treatedsubsequently, comfort care (5) Chronic respiratory failure with hypoxia: oxygen for comfort (6) Cardiomyopathy: See above (7) Dyslipidemia: Comfort careall active therapy stopped Coding Level of Care Code None Diagnoses Goals of care, counseling/discussion Z71.89 Cardiorenal syndrome I13.10 Transaminitis R74.01 UTI (urinary tract infection) N39.0 Chronic respiratory failure with hypoxia J96.11 Cardiomyopathy I42.9 Cardiomyopathy type: unspecified Dyslipidemia E78.5
== END 2021-03-18 02:03 | disposition expired | DRG 291 ==
LOC: ED 20:41 → 2W 03-13 00:51 → SUATTDRO 03-13 00:51 → 2W 03-13 01:34
DX: Z91.041 Radiographic dye allergy status; Z51.5 Encounter for palliative care; Z66 Do not resuscitate; E88.09 Other disorders of plasma-protein metabolism, not elsewhere classified; E87.5 Hyperkalemia; N18.9 Chronic kidney disease, unspecified; F32.9 Major depressive disorder, single episode, unspecified; R62.7 Adult failure to thrive; I50.23 Acute on chronic systolic (congestive) heart failure; I13.0 Hypertensive heart and chronic kidney disease with heart failure and stage 1 through stage 4 chronic kidney disease, or unspecified chronic kidney disease; Z79.02 Long term (current) use of antithrombotics/antiplatelets; N17.9 Acute kidney failure, unspecified; E78.5 Hyperlipidemia, unspecified; Z95.810 Presence of automatic (implantable) cardiac defibrillator; N39.0 Urinary tract infection, site not specified; I42.9 Cardiomyopathy, unspecified; E03.9 Hypothyroidism, unspecified; I34.0 Nonrheumatic mitral (valve) insufficiency; I44.7 Left bundle-branch block, unspecified; J96.11 Chronic respiratory failure with hypoxia; Z98.84 Bariatric surgery status; E86.0 Dehydration; R74.01 Elevation of levels of liver transaminase levels